=== PATIENT | male | born 1965 | race African-American/Black ===

== ENCOUNTER 2018-08-01 17:28 | Inpatient (IN) | payer MEDICAID ==
[~2018-08-01] VITALS: Ht 185.4 cm; Wt 120.7 kg
[2018-08-01 17:40] VITALS: BP 139/88
--- NOTE | 2018-08-01 17:40 | NUR ---
ED Nurse Note: PT WALKED IN TO ER TODAY FROM HOME. AOX4. PT C/O RIGHT LEG PAIN, 5/10 AT REST, AND SWELLING X 1 WEEK. PT PRESENTS WITH 3+ PITTING EDEMA TO RIGHT LOWER EXTREMITY. CIRCULATION AND SENSATION INTACT, CAP REFILL <3 SECONDS, 5/5 MUSCLE STRENGTH AND FULL ROM OF DIGITS AND EXTREMITY. PT STATES HE FEELS THAT LEFT LEG IS ALSO STARTING TO SWELL. PT ALSO C/O INCREASING PAIN WITH AMBULATION. PT DENIES ANY MEDICAL HISTORY BESIDES HTN.
[2018-08-01 18:12] LABS: APPEARANCE,URINE CLEAR; BILIRUBIN, URINE NEGATIVE (NEGATIVE); GLUCOSE, URINE (UA) NEGATIVE (NEGATIVE); KETONES,URINE NEGATIVE (NEGATIVE); LEUKOCYTE ESTERASE ,URINE 1+ (NEGATIVE); NITRITE,URINE NEGATIVE (NEGATIVE); PH,URINE 7 (4.5-8.0); PROTEIN,URINE NEGATIVE (NEGATIVE); UROBILINOGEN,URINE 4 MG/DL (0.0-1.0)
[2018-08-01 18:13] LABS: BASOPHILS % (AUTO) 1.1 % (0.0-2.0); COLOR,URINE YELLOW; HEMATOCRIT 43.3 % (42.0-52.0); LYMPHOCYTES % (AUTO) 29.7 % (20.0-45.0); MEAN CORPUSCULAR VOLUME 91 FL (80-99); MONOCYTES % (AUTO) 11.6 % (1.0-10.0); NEUTROPHILS % (AUTO) 52.6 % (45.0-75.0); PLATELET COUNT 173 K/UL (150-450); RED BLOOD COUNT 4.74 M/UL (4.70-6.10); RED CELL DISTRIBUTION WIDTH 12.9 % (11.6-14.8); WHITE BLOOD COUNT 6.6 K/UL (4.8-10.8)
[2018-08-01 18:38] LABS: ANION GAP 11 mmol/L (5-15); BLOOD UREA NITROGEN 15 mg/dL (7-18); CALCIUM 8.7 MG/DL (8.5-10.1); CARBON DIOXIDE 27 MMOL/L (21-32); CHLORIDE 106 MMOL/L (98-107); SODIUM 144 MMOL/L (136-145)
[2018-08-01 18:43] LABS: ALANINE AMINOTRANSFERASE 30 U/L (12-78); ALBUMIN 3.8 G/DL (3.4-5.0); ALKALINE PHOSPHATASE 120 U/L (46-116); ASPARTATE AMINO TRANSFERASE 21 U/L (15-37); BILIRUBIN,TOTAL 0.2 MG/DL (0.2-1.0)
--- NOTE | 2018-08-01 19:10 | NUR ---
ED Nurse Note: REPORT GIVEN TO TRACEY RUIZ.
--- NOTE | 2018-08-01 19:21 | Emergency Room Report ---
History of Present Illness General Chief Complaint: Edema Source: Patient Present Illness HPI 53-year-old male presents ED for evaluation. Patient complaining of right leg pain and swelling for one week. Pain is throbbing, 10 out of 10, nonradiating. Denies any recent fall or injury. Denies chest pain or shortness of breath. Denies fevers or chills. No other aggravating relieving factors. Denies any other associated symptoms Allergies: Coded Allergies: No Known Allergies (Unverified , 08/01/18) Patient History Past Medical History: HTN Past Surgical History: none Pertinent Family History: none Social History: Denies: smoking, alcohol use, drug use Immunizations: UTD Reviewed Nursing Documentation: PMH: Agreed; PSxH: Agreed Nursing Documentation-PMH Past Medical History: No History, Except For Hx Hypertension: Yes Review of Systems All Other Systems: negative except mentioned in HPI Physical Exam Vital Signs Date Time Temp Pulse Resp B/P (MAP) Pulse Ox O2 Delivery O2 Flow Rate FiO2 08/01/18 17:33 98.2 81 20 170/81 95 Room Air Sp02 EP Interpretation: reviewed, normal General Appearance: no apparent distress, alert, GCS 15, non-toxic Head: normocephalic Eyes: bilateral eye normal inspection, bilateral eye PERRL ENT: normal ENT inspection Neck: normal inspection Respiratory: chest non-tender, lungs clear, normal breath sounds, speaking full sentences Cardiovascular #1: regular rate, rhythm, no edema Gastrointestinal: normal bowel sounds, non tender, soft, non-distended, no guarding, no rebound Rectal: deferred Genitourinary: no vertebral tenderness Musculoskeletal: swelling - RLE Neurologic: alert, oriented x3, responsive, motor strength/tone normal, sensory intact, speech normal Psychiatric: normal inspection Skin: other - erythema/induration RLE, discharge from wound noted Lymphatic: normal inspection Medical Decision Making Diagnostic Impression: Primary Impression: Cellulitis of right lower extremity ER Course Hospital Course 53-year-old male presents to ED with redness, swelling to RLE Differential diagnoses include: Cellulitis, DVT, abscess, rash. Clinical course Patient placed on stretcher. After initial history and physical I ordered labs , blood Cx, UA, IVFs, doppler US of LLE labs reviewed - no leukocytosis, Hb/Hct stable, no electrolyte abnormalities, lactic acid ok Doppler US - no evidence of DVT antibiotics given. Case discussed with Dr Staples and he agreed to accept the patient to his service for further care and support Diagnosis - cellulitis of right lower extremity Patient admitted to floor in serious condition Labs Test 08/01/18 17:50 08/01/18 18:20 White Blood Count 6.6 K/UL (4.8-10.8) Red Blood Count 4.74 M/UL (4.70-6.10) Hemoglobin 14.0 G/DL (14.2-18.0) Hematocrit 43.3 % (42.0-52.0) Mean Corpuscular Volume 91 FL (80-99) Mean Corpuscular Hemoglobin 29.6 PG (27.0-31.0) Mean Corpuscular Hemoglobin Concent 32.4 G/DL (32.0-36.0) Red Cell Distribution Width 12.9 % (11.6-14.8) Platelet Count 173 K/UL (150-450) Mean Platelet Volume 8.8 FL (6.5-10.1) Neutrophils (%) (Auto) 52.6 % (45.0-75.0) Lymphocytes (%) (Auto) 29.7 % (20.0-45.0) Monocytes (%) (Auto) 11.6 % (1.0-10.0) Eosinophils (%) (Auto) 5.0 % (0.0-3.0) Basophils (%) (Auto) 1.1 % (0.0-2.0) Urine Color Yellow Urine Appearance Clear Urine pH 7 (4.5-8.0) Urine Specific [place] 1.010 (1.005-1.035) Urine Protein Negative (NEGATIVE) Urine Glucose (UA) Negative (NEGATIVE) Urine Ketones Negative (NEGATIVE) Urine Blood Negative (NEGATIVE) Urine Nitrite Negative (NEGATIVE) Urine Bilirubin Negative (NEGATIVE) Urine Urobilinogen 4 MG/DL (0.0-1.0) Urine Leukocyte Esterase 1+ (NEGATIVE) Urine RBC 0-2 /HPF (0 - 0) Urine WBC 0-2 /HPF (0 - 0) Urine Squamous Epithelial Cells None /LPF (NONE/OCC) Urine Bacteria None /HPF (NONE) Urine Mucus Few /LPF (NONE/OCC) Sodium Level 144 MMOL/L (136-145) Potassium Level 4.0 MMOL/L (3.5-5.1) Chloride Level 106 MMOL/L (98-107) Carbon Dioxide Level 27 MMOL/L (21-32) Anion Gap 11 mmol/L (5-15) Blood Urea Nitrogen 15 mg/dL (7-18) Creatinine 1.0 MG/DL (0.55-1.30) Estimat Glomerular Filtration Rate > 60 mL/min (>60) Glucose Level 119 MG/DL (74-106) Calcium Level 8.7 MG/DL (8.5-10.1) Total Bilirubin 0.2 MG/DL (0.2-1.0) Aspartate Amino Transf (AST/SGOT) 21 U/L (15-37) Alanine Aminotransferase (ALT/SGPT) 30 U/L (12-78) Alkaline Phosphatase 120 U/L (46-116) Total Protein 7.6 G/DL (6.4-8.2) Albumin 3.8 G/DL (3.4-5.0) Globulin 3.8 g/dL Albumin/Globulin Ratio 1.0 (1.0-2.7) Lactic Acid Level 1.20 mmol/L (0.4-2.0) CT/MRI/US Diagnostic Results CT/MRI/US Diagnostic Results : Imaging Test Ordered: venous duplex Impression no DVT in RLE Last Vital Signs Date Time Temp Pulse Resp B/P (MAP) Pulse Ox O2 Delivery O2 Flow Rate FiO2 08/01/18 17:40 98.4 71 15 139/88 100 Room Air Status: improved Disposition: ADMITTED INPATIENT Condition: Serious Scripts No Active Prescriptions or Reported Meds Referrals: NOT CHOSEN IPA/,REFERRING (PCP) Mika Gutierrez MD Aug 01, 2018 19:21
--- NOTE | 2018-08-01 20:13 | NUR ---
TRANSFER TO FLOOR: Patient transferred to [facility] as ordered . Report given to Nataly/TRACEY. Belongings sent with Pt.
--- NOTE | 2018-08-01 21:14 | History & Physical ---
History and Physical History & Physicial History and Physical HPI 53-year-old male with PMH of Hypertension, presents complaining of right leg pain and swelling for one week. Denies any recent fall or injury. Denies chest pain or shortness of breath. Denies fevers or chills. No other aggravating relieving factors. Denies any other associated symptoms Allergies: No Known Allergies Past Medical History: HTN Past Surgical History: none Social History: Denies: smoking, alcohol use, drug use All Other Systems: negative except mentioned in HPI Physical Exam Vital Signs Noted Date Time Temp Pulse Resp B/P (MAP) Pulse Ox O2 Delivery O2 Flow Rate FiO2 08/01/18 17:33 98.2 81 20 170/81 95 Room Air General Appearance: no apparent distress, alert, GCS 15, non-toxic Head: normocephalic Eyes: bilateral eye normal inspection, bilateral eye PERRL ENT: normal ENT inspection Neck: normal inspection Respiratory: chest non-tender, lungs clear, normal breath sounds, speaking full sentences Cardiovascular: Heart, HS1, HS2, RRR, no edema Gastrointestinal: normal bowel sounds, non tender, soft, non-distended, no guarding, no rebound Genitourinary: no vertebral tenderness Musculoskeletal: swelling - RLE Neurologic: alert, oriented x3, responsive, motor strength/tone normal, sensory intact, speech normal Psychiatric: normal inspection Skin: other - erythema/induration RLE, discharge from wound noted Lymphatic: normal inspection Impression: Cellulitis R LE LE Dupplex negative for DVT H/o Hypertension Plan: IV Antibiotics - continue Clindamycin Pain medications Wound care Wound cultures PPX Shawn Lanier MD Aug 01, 2018 21:14
[2018-08-01] MEDS ORDERED: Morphine Sulfate 2mg/ml Inj(IV/IM USE ONLY) IVP PRN (21:30)
[2018-08-01] MEDS ORDERED: NKM (21:30)
[2018-08-01] MEDS ORDERED: HydrALAZINE 25mg tab ORAL PRN (21:30)
[2018-08-01 21:40] VITALS: BP 170/96
--- NOTE | 2018-08-01 22:00 | NUR ---
NURSE NOTES: Patient admitted from ER via gurney. Patient is ambulatory, slightly unsteady gait d/t swelling on right leg. Patient is aox4, room air, no acute distress. Belongings verified at bedside. bruno has avina and request to put it in safe. supervisor residential Mitchell notified. Patient is oriented to room and unit. Admitting orders received from Dr. Lanier, read back. Will carry out orders.
[2018-08-02] VITALS: BP 139/79
[2018-08-02 04:00] VITALS: BP 126/73
--- NOTE | 2018-08-02 07:18 | NUR ---
HAND-OFF: Report given to Maria Del Rosario WEBB.
--- NOTE | 2018-08-02 07:46 | NUR ---
NURSE NOTES: Received report from TRACEY Rosenthal. Pt in bed asleep, respirations unlabored, no apparent distress noted, bed in lowest position, call light within reach.
[2018-08-02 08:00] VITALS: BP 156/79
[2018-08-02] MEDS: Heparin 5000 units/ml inj SUBQ SCH ×2 (08:16→21:23)
--- NOTE | 2018-08-02 08:52 | NUR ---
RADIOLOGY DEPT., RIGHT FOOT X-RAY COMPLETED.-PLaurieDYE
--- NOTE | 2018-08-02 08:57 | General Progress Note ---
Assessment/Plan Assessment/Plan Impression: Cellulitis R LE LE Dupplex negative for DVT H/o Hypertension Plan: IV Antibiotics - continue Clindamycin Pain medications Wound care Wound cultures ID evaluation Subjective Allergies: Coded Allergies: No Known Allergies (Unverified , 08/01/18) Subjective same otherwise stable Objective Last 24 Hour Vital Signs Date Time Temp Pulse Resp B/P (MAP) Pulse Ox O2 Delivery O2 Flow Rate FiO2 08/02/18 08:12 73 156/79 08/02/18 08:00 97.5 73 16 156/79 (104) 99 08/02/18 04:00 97.6 71 20 126/73 (90) 98 08/02/18 00:00 98.4 78 20 139/79 (99) 98 08/01/18 22:00 Room Air 08/01/18 21:54 71 170/85 08/01/18 21:40 97.6 70 20 170/96 (120) 98 08/01/18 19:13 98.3 75 15 151/84 100 Room Air 08/01/18 17:40 98.4 71 15 139/88 100 Room Air 08/01/18 17:40 71 15 Room Air 08/01/18 17:33 98.2 81 20 170/81 95 Room Air Intake and Output 08/01/18 08/02/18 18:59 06:59 Intake Total 350 ml Output Total 600 ml Balance -250 ml Intake Oral 300 ml IV Total 50 ml Output Urine Total 600 ml # Voids 1 Laboratory Tests 08/01/18 17:50: White Blood Count 6.6, Red Blood Count 4.74, Hemoglobin 14.0L, Hematocrit 43.3, Mean Corpuscular Volume 91, Mean Corpuscular Hemoglobin 29.6, Mean Corpuscular Hemoglobin Concent 32.4, Red Cell Distribution Width 12.9, Platelet Count 173, Mean Platelet Volume 8.8, Neutrophils (%) (Auto) 52.6, Lymphocytes (%) (Auto) 29.7, Monocytes (%) (Auto) 11.6H, Eosinophils (%) (Auto) 5.0H, Basophils (%) ( Auto) 1.1, Urine Color Yellow, Urine Appearance Clear, Urine pH 7, Urine Specific [place] 1.010, Urine Protein Negative, Urine Glucose (UA) Negative, Urine Ketones Negative, Urine Blood Negative, Urine Nitrite Negative, Urine Bilirubin Negative, Urine Urobilinogen 4H, Urine Leukocyte Esterase 1+H, Urine RBC 0-2H, Urine WBC 0-2, Urine Squamous Epithelial Cells None, Urine Bacteria None, Urine Mucus FewH, Sodium Level 144, Potassium Level 4.0, Chloride Level 106, Carbon Dioxide Level 27, Anion Gap 11, Blood Urea Nitrogen 15, Creatinine 1.0, Estimat Glomerular Filtration Rate > 60, Glucose Level 119H, Calcium Level 8.7, Total Bilirubin 0.2, Aspartate Amino Transf (AST/SGOT) 21, Alanine Aminotransferase (ALT/SGPT) 30, Alkaline Phosphatase 120H, Total Protein 7.6, Albumin 3.8, Globulin 3.8, Albumin/Globulin Ratio 1.0 08/01/18 18:20: Lactic Acid Level 1.20 Height (Feet): 6 Height (Inches): 1.00 Weight (Pounds): 266 Objective WDWN NAD clear breath sounds bilaterally without rhonchi or wheeze [id number] without MRG NABS nontender no HSM no CC significant edema and weeping of the leg nonfocal Jake Staples MD Aug 02, 2018 08:57
--- NOTE | 2018-08-02 10:47 | NUR ---
NURSE NOTES: Pt seen by PAMELA Calle LVN. Notified Dr. Staples of recommendations including recommendation for wound to be drained. Addendum: 08/02/18 at 1049 by CARISA ROSALES RN asked if Dr. Staples would like a consult
[2018-08-02 12:00] VITALS: BP 155/82
--- NOTE | 2018-08-02 13:00 | Diagnostic Imaging Report ---
Indication: Foot Pain Comparison: None Findings: 3 views of the right foot were obtained. No acute fractures, malalignment, erosions or periostitis are identified. Hallux valgus the form noted. There is moderate generalized soft tissue swelling nonspecific. Impression: Soft tissue swelling Hallux valgus
--- NOTE | 2018-08-02 13:25 | NUR ---
NURSE NOTES:WOUND CARE NOTES:Pt presented on admission with wound of unknown etiology dorso/flexor R foot. Wound is malodorous and has puncture -like appearance with 100% slough(L)0.6cm x (W)0.9cm. Periwound macerated and is indurated and swollen. No exudate noted from wound.Slightly elevated skin temp periwound. Pt verbalized site very painful with bearing weight on R foot. Recommendations:Please request Physician consult from PCP to evaluate wound. Cleanse wound with Saline. Apply Xeroform Gauze.Cover with Abd and wrap with Kerlix Daily and prn.
--- NOTE | 2018-08-02 15:35 | Consultation ---
History of Present Illness General Date patient seen: Aug 02, 2018 Reason for Hospitalization: Edema Present Illness HPI This is a very pleasant 53-year-old male who presented to the emergency department [facility] complaining of worsening right foot pain. States that he has had worsening edema over the past week and developed a wound which has been slowly healing with a tender white spot at the apex of the wound. Denies any nausea vomiting fever chills. Labs noted. Surgery called to evaluate and assist with care and management. Patient seen, patient evaluated, patient examined. Allergies: Coded Allergies: No Known Allergies (Unverified , 08/01/18) Medication History Scheduled No Known Medications* (NKM - No Known Medications*), 0 ., (Reported) Patient History History Provided By: Patient, Medical Record, PMD Healthcare decision maker Resuscitation status Full Code Advanced Directive on File Past Medical/Surgical History Past Medical/Surgical History: (1) Cellulitis (2) Cellulitis of right lower extremity (3) Open wound Review of Systems Review of Symptoms General ROS: no weight loss or fever Psychological ROS: no depression or mood changes, no memory loss Ophthalmic ROS: no visual changes or eye irritation ENT ROS: no nasal congestion, hearing loss, dizziness Allergy and Immunology ROS: no allergic symptoms or urticaria Hematological and Lymphatic ROS: no swollen glands, unusual bleeding or bruising Endocrine ROS: no polyuria, polydipsia, weight changes, temperature intolerance Respiratory ROS: no cough, shortness of breath, or wheezing Cardiovascular ROS: no chest pain or dyspnea on exertion Gastrointestinal ROS: denies abdominal pain, no bright red blood in stool. Musculoskeletal ROS: no myalgias or arthralgias Neurological ROS: no TIA or stroke symptoms Dermatological ROS: no new or changing skin lesions, rashes or pruritis Physical Exam Physical Exam General appearance: alert, cooperative, no distress, appears stated age Head: Normocephalic, without obvious abnormality, atraumatic Eyes: conjunctivae/corneas clear. PERRL, EOM's intact. Fundi benign Throat: Lips, mucosa, and tongue normal. Teeth and gums normal Neck: supple, symmetrical, trachea midline, no adenopathy, thyroid: not enlarged, symmetric, no tenderness/mass/nodules, no carotid bruit and no JVD Lungs: clear to auscultation bilaterally Heart: regular rate and rhythm, S1, S2 normal, no murmur, click, rub or gallop Abdomen: soft, non-tender. Bowel sounds normal. No masses, no organomegaly Extremities: extremities normal, atraumatic, edema of right foot with ulceration at dorsal aspect Pulses: 2+ and symmetric Skin: Skin color, texture, turgor normal. No rashes or lesions Neurologic: Grossly normal Last 24 Hour Vital Signs Date Time Temp Pulse Resp B/P (MAP) Pulse Ox O2 Delivery O2 Flow Rate FiO2 08/02/18 12:00 97.5 73 18 155/82 (106) 98 08/02/18 09:00 Room Air 08/02/18 08:12 73 156/79 08/02/18 08:00 97.5 73 16 156/79 (104) 99 08/02/18 04:00 97.6 71 20 126/73 (90) 98 08/02/18 00:00 98.4 78 20 139/79 (99) 98 08/01/18 22:00 Room Air 08/01/18 21:54 71 170/85 08/01/18 21:40 97.6 70 20 170/96 (120) 98 08/01/18 19:13 98.3 75 15 151/84 100 Room Air 08/01/18 17:40 98.4 71 15 139/88 100 Room Air 08/01/18 17:40 71 15 Room Air 08/01/18 17:33 98.2 81 20 170/81 95 Room Air Intake and Output 08/01/18 08/02/18 19:00 07:00 Intake Total 350 ml Output Total 600 ml Balance -250 ml Intake Oral 300 ml IV Total 50 ml Output Urine Total 600 ml # Voids 1 Laboratory Tests Test 08/01/18 17:50 08/01/18 18:20 White Blood Count 6.6 K/UL (4.8-10.8) Red Blood Count 4.74 M/UL (4.70-6.10) Hemoglobin 14.0 G/DL (14.2-18.0) L Hematocrit 43.3 % (42.0-52.0) Mean Corpuscular Volume 91 FL (80-99) Mean Corpuscular Hemoglobin 29.6 PG (27.0-31.0) Mean Corpuscular Hemoglobin Concent 32.4 G/DL (32.0-36.0) Red Cell Distribution Width 12.9 % (11.6-14.8) Platelet Count 173 K/UL (150-450) Mean Platelet Volume 8.8 FL (6.5-10.1) Neutrophils (%) (Auto) 52.6 % (45.0-75.0) Lymphocytes (%) (Auto) 29.7 % (20.0-45.0) Monocytes (%) (Auto) 11.6 % (1.0-10.0) H Eosinophils (%) (Auto) 5.0 % (0.0-3.0) H Basophils (%) (Auto) 1.1 % (0.0-2.0) Urine Color Yellow Urine Appearance Clear Urine pH 7 (4.5-8.0) Urine Specific [place] 1.010 (1.005-1.035) Urine Protein Negative (NEGATIVE) Urine Glucose (UA) Negative (NEGATIVE) Urine Ketones Negative (NEGATIVE) Urine Blood Negative (NEGATIVE) Urine Nitrite Negative (NEGATIVE) Urine Bilirubin Negative (NEGATIVE) Urine Urobilinogen 4 MG/DL (0.0-1.0) H Urine Leukocyte Esterase 1+ (NEGATIVE) H Urine RBC 0-2 /HPF (0 - 0) H Urine WBC 0-2 /HPF (0 - 0) Urine Squamous Epithelial Cells None /LPF (NONE/OCC) Urine Bacteria None /HPF (NONE) Urine Mucus Few /LPF (NONE/OCC) H Sodium Level 144 MMOL/L (136-145) Potassium Level 4.0 MMOL/L (3.5-5.1) Chloride Level 106 MMOL/L (98-107) Carbon Dioxide Level 27 MMOL/L (21-32) Anion Gap 11 mmol/L (5-15) Blood Urea Nitrogen 15 mg/dL (7-18) Creatinine 1.0 MG/DL (0.55-1.30) Estimat Glomerular Filtration Rate > 60 mL/min (>60) Glucose Level 119 MG/DL (74-106) H Calcium Level 8.7 MG/DL (8.5-10.1) Total Bilirubin 0.2 MG/DL (0.2-1.0) Aspartate Amino Transf (AST/SGOT) 21 U/L (15-37) Alanine Aminotransferase (ALT/SGPT) 30 U/L (12-78) Alkaline Phosphatase 120 U/L (46-116) H Total Protein 7.6 G/DL (6.4-8.2) Albumin 3.8 G/DL (3.4-5.0) Globulin 3.8 g/dL Albumin/Globulin Ratio 1.0 (1.0-2.7) Lactic Acid Level 1.20 mmol/L (0.4-2.0) Microbiology Date/Time Source Procedure Growth Status 08/01/18 18:20 Wound Gram Stain - Final Resulted 08/01/18 18:20 Wound Culture - Preliminary Staphylococcus Aureus Resulted Height (Feet): 6 Height (Inches): 1.00 Weight (Pounds): 266 Medications Current Medications Medications (Trade) Dose Ordered Sig/Tere Route PRN Reason Start Time Stop Time Status Last Admin Dose Admin Acetaminophen (Tylenol) 650 mg Q6H PRN ORAL Pain 1-6/Temp > 100.5 08/01/18 21:30 08/31/18 21:29 Amlodipine Besylate (Norvasc) 5 mg DAILY ORAL 08/01/18 21:45 08/31/18 21:44 08/02/18 08:12 Clindamycin HCl/ Dextrose 50 ml @ 100 mls/hr Q8HR IV 08/02/18 06:00 08/09/18 05:59 08/02/18 14:02 Diphenhydramine HCl (Benadryl) 25 mg Q6H PRN ORAL Itching 08/01/18 21:30 08/31/18 21:29 Heparin Sodium (Porcine) (Heparin 5000 units/ml) 5,000 units EVERY 12 HOURS SUBQ 08/02/18 09:00 09/01/18 08:59 08/02/18 08:16 Hydralazine HCl (Apresoline) 25 mg Q6H PRN ORAL For High Blood Pressure 08/01/18 21:30 08/31/18 21:29 Morphine Sulfate (Morphine Sulfate) 1 mg Q3H PRN IVP Severe Pain (Pain Scale 7-10) 08/01/18 21:30 08/08/18 21:29 Ondansetron HCl (Zofran) 4 mg Q8H PRN IVP Nausea & Vomiting 08/01/18 21:30 08/31/18 21:29 Assessment/Plan Problem List: (1) Cellulitis of right lower extremity Assessment & Plan: Pt presented on admission with wound of unknown etiology dorso RIGHT foot. Wound is malodorous and has puncture -like appearance with 100 % slough(L)0.6cm x (W)0.9cm. Periwound macerated and is indurated and swollen. No exudate noted from wound.Slightly elevated skin temp periwound. Pt verbalized site very painful with bearing weight on R foot. Recommendations: with patients permission / consent the sloth on wound was debrided with surgical scalpel and scissors. good underlying tissue with back bleeding noted. no abscess. Abx Cleanse wound with Saline. Apply Xeroform Gauze.Cover with Abd and wrap with Kerlix Daily and prn. Keep right lower extremity elevated while in bed Heel protectors okay to ambulate. ICD Codes: L03.115 - Cellulitis of right lower limb SNOMED: [id number] TylerIsrael osullivan Aug 02, 2018 15:35
[2018-08-02 16:00] VITALS: BP 155/82
[2018-08-02 20:00] VITALS: BP 145/81
--- NOTE | 2018-08-02 20:00 | NUR ---
NURSE NOTES: Patient received in bed, awake alert. Right leg elevated on 2 pillows. Dressing dry and intact. Denies pain or discomfort at this time. Family member at bedside, inquiring regarding disability for patient after discharge. Patient allowed for CM or SW to contact sister in law Deborah Espino regarding discharge plan. Deborah Keith [phone]
[2018-08-03] VITALS: BP 135/92
[2018-08-03 04:15] VITALS: BP 144/83
--- NOTE | 2018-08-03 05:00 | NUR ---
NURSE NOTES: R foot dressing changed.
[2018-08-03 06:51] LABS: BASOPHILS % (AUTO) 0.9 % (0.0-2.0); EOSINOPHILS % (AUTO) 6.7 % (0.0-3.0); HEMATOCRIT 44.6 % (42.0-52.0); HEMOGLOBIN 14.3 G/DL (14.2-18.0); LYMPHOCYTES % (AUTO) 35.1 % (20.0-45.0); MEAN CORPUSCULAR VOLUME 92 FL (80-99); MONOCYTES % (AUTO) 10.6 % (1.0-10.0); NEUTROPHILS % (AUTO) 46.7 % (45.0-75.0); PLATELET COUNT 189 K/UL (150-450); RED BLOOD COUNT 4.86 M/UL (4.70-6.10); RED CELL DISTRIBUTION WIDTH 12.7 % (11.6-14.8); WHITE BLOOD COUNT 5.1 K/UL (4.8-10.8)
--- NOTE | 2018-08-03 07:16 | NUR ---
HAND-OFF: Report given to Maria Del Rosario WEBB.
--- NOTE | 2018-08-03 07:27 | NUR ---
NURSE NOTES: Received report from TRACEY Rosenthal. Pt in bed, asleep, respirations regular and unlabored, right foot elevated due to swelling, no apparent distress noted, bed in lowest position, call light within reach.
[2018-08-03 07:30] LABS: ANION GAP 6 mmol/L (5-15); BLOOD UREA NITROGEN 11 mg/dL (7-18); CALCIUM 8.7 MG/DL (8.5-10.1); CARBON DIOXIDE 28 MMOL/L (21-32); CHLORIDE 107 MMOL/L (98-107); CREATININE 0.9 MG/DL (0.55-1.30); POTASSIUM 3.7 MMOL/L (3.5-5.1); SODIUM 141 MMOL/L (136-145)
[2018-08-03 08:00] VITALS: BP 151/89
[2018-08-03] MEDS: Heparin 5000 units/ml inj SUBQ SCH ×2 (08:12→20:28)
--- NOTE | 2018-08-03 11:18 | Pulmonology Progress Note ---
Assessment/Plan Assessment/Plan Pulmonary Progress Note Assessment/Plan Impression: Cellulitis R LE LE Dupplex negative for DVT H/o Hypertension Seen by surgery, ambulation OK Plan: IV Antibiotics - continue Clindamycin Pain medications Wound care Wound cultures ID evaluation Subjective Allergies: Coded Allergies: No Known Allergies (Unverified , 08/01/18) Subjective same otherwise stable Objective Vital Signs Noted Laboratory Tests 08/01/18 17:50: White Blood Count 6.6, Red Blood Count 4.74, Hemoglobin 14.0L, Hematocrit 43.3, Mean Corpuscular Volume 91, Mean Corpuscular Hemoglobin 29.6, Mean Corpuscular Hemoglobin Concent 32.4, Red Cell Distribution Width 12.9, Platelet Count 173, Mean Platelet Volume 8.8, Neutrophils (%) (Auto) 52.6, Lymphocytes (%) (Auto) 29.7, Monocytes (%) (Auto) 11.6H, Eosinophils (%) (Auto) 5.0H, Basophils (%) ( Auto) 1.1, Urine Color Yellow, Urine Appearance Clear, Urine pH 7, Urine Specific [place] 1.010, Urine Protein Negative, Urine Glucose (UA) Negative, Urine Ketones Negative, Urine Blood Negative, Urine Nitrite Negative, Urine Bilirubin Negative, Urine Urobilinogen 4H, Urine Leukocyte Esterase 1+H, Urine RBC 0-2H, Urine WBC 0-2, Urine Squamous Epithelial Cells None, Urine Bacteria None, Urine Mucus FewH, Sodium Level 144, Potassium Level 4.0, Chloride Level 106, Carbon Dioxide Level 27, Anion Gap 11, Blood Urea Nitrogen 15, Creatinine 1.0, Estimat Glomerular Filtration Rate > 60, Glucose Level 119H, Calcium Level 8.7, Total Bilirubin 0.2, Aspartate Amino Transf (AST/SGOT) 21, Alanine Aminotransferase (ALT/SGPT) 30, Alkaline Phosphatase 120H, Total Protein 7.6, Albumin 3.8, Globulin 3.8, Albumin/Globulin Ratio 1.0 08/01/18 18:20: Lactic Acid Level 1.20 Height (Feet): 6 Height (Inches): 1.00 Weight (Pounds): 266 Objective WDWN NAD clear breath sounds bilaterally without rhonchi or wheeze [id number] without MRG NABS nontender no HSM no CC significant edema and weeping of the leg nonfocal Subjective ROS Limited/Unobtainable: No Allergies: Coded Allergies: No Known Allergies (Unverified , 08/01/18) Objective Last 24 Hour Vital Signs Date Time Temp Pulse Resp B/P (MAP) Pulse Ox O2 Delivery O2 Flow Rate FiO2 08/03/18 09:00 Room Air 08/03/18 08:11 76 144/83 08/03/18 08:00 97.7 75 18 151/89 (109) 98 08/03/18 04:15 97.8 76 20 144/83 (103) 97 08/03/18 00:00 97.9 84 20 135/92 (106) 97 08/02/18 20:54 Room Air 08/02/18 20:00 98.7 75 20 145/81 (102) 97 08/02/18 16:00 97.5 73 18 155/82 (106) 98 08/02/18 12:00 97.5 73 18 155/82 (106) 98 Intake and Output 08/02/18 08/03/18 18:59 06:59 Intake Total 800 ml 100 ml Output Total 1000 ml 550 ml Balance -200 ml -450 ml Intake Oral 800 ml IV Total 100 ml Output Urine Total 1000 ml 550 ml # Voids 100 2 Microbiology Date/Time Source Procedure Growth Status 08/01/18 18:20 Blood Blood Culture - Preliminary NO GROWTH AFTER 24 HOURS Resulted 08/01/18 18:05 Blood Blood Culture - Preliminary NO GROWTH AFTER 24 HOURS Resulted 08/01/18 18:20 Wound Gram Stain - Final Complete 08/01/18 18:20 Wound Culture - Final Staphylococcus Aureus Streptococcus Group G Complete 08/01/18 21:50 Foot Right Gram Stain - Final Resulted 08/01/18 21:50 Wound Culture - Preliminary Staphylococcus Aureus Strep Species, Beta Hemolytic Diphtheroids Resulted Laboratory Tests 08/03/18 05:20: White Blood Count 5.1, Red Blood Count 4.86, Hemoglobin 14.3, Hematocrit 44.6, Mean Corpuscular Volume 92, Mean Corpuscular Hemoglobin 29.4, Mean Corpuscular Hemoglobin Concent 32.0, Red Cell Distribution Width 12.7, Platelet Count 189, Mean Platelet Volume 9.7, Neutrophils (%) (Auto) 46.7, Lymphocytes (%) (Auto) 35.1, Monocytes (%) (Auto) 10.6H, Eosinophils (%) (Auto) 6.7H, Basophils (%) ( Auto) 0.9, Sodium Level 141, Potassium Level 3.7, Chloride Level 107, Carbon Dioxide Level 28, Anion Gap 6, Blood Urea Nitrogen 11, Creatinine 0.9, Estimat Glomerular Filtration Rate > 60, Glucose Level 81, Calcium Level 8.7 Current Medications Medications (Trade) Dose Ordered Sig/Tere Route PRN Reason Start Time Stop Time Status Last Admin Dose Admin Acetaminophen (Tylenol) 650 mg Q6H PRN ORAL Pain 1-6/Temp > 100.5 08/01/18 21:30 08/31/18 21:29 Amlodipine Besylate (Norvasc) 5 mg DAILY ORAL 08/01/18 21:45 08/31/18 21:44 08/03/18 08:11 Clindamycin HCl/ Dextrose 50 ml @ 100 mls/hr Q8HR IV 08/02/18 06:00 08/09/18 05:59 08/03/18 05:04 Diphenhydramine HCl (Benadryl) 25 mg Q6H PRN ORAL Itching 08/01/18 21:30 08/31/18 21:29 Heparin Sodium (Porcine) (Heparin 5000 units/ml) 5,000 units EVERY 12 HOURS SUBQ 08/02/18 09:00 09/01/18 08:59 08/03/18 08:12 Hydralazine HCl (Apresoline) 25 mg Q6H PRN ORAL For High Blood Pressure 08/01/18 21:30 08/31/18 21:29 Morphine Sulfate (Morphine Sulfate) 1 mg Q3H PRN IVP Severe Pain (Pain Scale 7-10) 08/01/18 21:30 08/08/18 21:29 Ondansetron HCl (Zofran) 4 mg Q8H PRN IVP Nausea & Vomiting 08/01/18 21:30 08/31/18 21:29 Vancomycin HCl (Vanco rx to dose) 1 ea DAILY PRN MISC Per rx protocol 08/03/18 10:30 09/02/18 10:29 Vancomycin HCl 1.25 gm/Dextrose 275 ml @ 183.333 mls/hr Q8H IVPB 08/03/18 20:00 08/08/18 19:59 Vancomycin HCl 2 gm/Dextrose 550 ml @ 275 mls/hr ONCE IVPB 08/03/18 12:00 08/03/18 14:00 Shawn Lanier MD Aug 03, 2018 11:18
[2018-08-03 12:00] VITALS: BP 153/79
[2018-08-03] MEDS ORDERED: Vancomycin 2gm/D5W 550ml IVPB SCH ×2 (12:00)
[2018-08-03] MEDS: Vancomycin 1.25mg/D5W 275ml IVPB SCH ×2 (13:16)
--- NOTE | 2018-08-03 14:06 | Diagnostic Imaging Report ---
Indication: Right lower extremity pain and swelling. Technique: Duplex Doppler imaging performed from the right common femoral vein to the popliteal vein. FINDINGS: Normal compressibility demonstrated from the common femoral vein to the popliteal vein. Respiratory phasicity and good augmentation demonstrated on waveform analysis. There is no evidence of thrombosis. Small nodes are seen in the right groin. IMPRESSION: No evidence of deep venous thrombosis within the right lower extremity.
--- NOTE | 2018-08-03 14:35 | NUR ---
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 FROM HOME CC:EDEMA SI:CELLULITES OF RIGHT LOWER EXTREMITY VS: BP 170/81, P 81, T 98.3, RR 20, SpO2 95 Hgb 14.0, ALK. PHOS. 120 IS:VANCOMYCIN 275ml IVPB HEPARIN SUBQ CLINDAMYCIN 50ml IV NORVASC 5mg ADMITTED TO MED/SURG DC PLAN: RETURN HOME
--- NOTE | 2018-08-03 15:13 | NUR ---
Social Work This Sw received a consult to assist patient with a home safety evaluation (will need to apply for short term disability). This Sw met with patient who remains independent overall, plans to return home with roommates, to assist, as needed. 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 This Sw provided short term disability forms, while educating patient the process with short term disability, along with terminologist disability (will need to apply through Social Security office). Patient explains his family will assist him, as needed with completing the paperwork (or can complete it himself). No other needs/concerns present at this time.
[2018-08-03 16:00] VITALS: BP 148/90
--- NOTE | 2018-08-03 17:09 | Surgery Progress Note ---
Surgery Progress Note Subjective Additional Comments no acute events. comfortable. pain improved. dressings changed. Objective Last 24 Hour Vital Signs Date Time Temp Pulse Resp B/P (MAP) Pulse Ox O2 Delivery O2 Flow Rate FiO2 08/03/18 16:00 98.0 79 20 148/90 (109) 98 08/03/18 12:00 98.1 67 20 153/79 (103) 98 08/03/18 09:00 Room Air 08/03/18 08:11 76 144/83 08/03/18 08:00 97.7 75 18 151/89 (109) 98 08/03/18 04:15 97.8 76 20 144/83 (103) 97 08/03/18 00:00 97.9 84 20 135/92 (106) 97 08/02/18 20:54 Room Air 08/02/18 20:00 98.7 75 20 145/81 (102) 97 I&O Intake and Output 08/02/18 08/03/18 19:00 07:00 Intake Total 800 ml 100 ml Output Total 1000 ml 550 ml Balance -200 ml -450 ml Intake Oral 800 ml IV Total 100 ml Output Urine Total 1000 ml 550 ml # Voids 100 2 Dressing: saturated Wound: clean Drains: none Cardiovascular: RSR Respiratory: clear Abdomen: soft, present bowel sounds, non-distended Extremities: edema, tenderness Laboratory Tests Test 08/03/18 05:20 White Blood Count 5.1 K/UL (4.8-10.8) Red Blood Count 4.86 M/UL (4.70-6.10) Hemoglobin 14.3 G/DL (14.2-18.0) Hematocrit 44.6 % (42.0-52.0) Mean Corpuscular Volume 92 FL (80-99) Mean Corpuscular Hemoglobin 29.4 PG (27.0-31.0) Mean Corpuscular Hemoglobin Concent 32.0 G/DL (32.0-36.0) Red Cell Distribution Width 12.7 % (11.6-14.8) Platelet Count 189 K/UL (150-450) Mean Platelet Volume 9.7 FL (6.5-10.1) Neutrophils (%) (Auto) 46.7 % (45.0-75.0) Lymphocytes (%) (Auto) 35.1 % (20.0-45.0) Monocytes (%) (Auto) 10.6 % (1.0-10.0) H Eosinophils (%) (Auto) 6.7 % (0.0-3.0) H Basophils (%) (Auto) 0.9 % (0.0-2.0) Sodium Level 141 MMOL/L (136-145) Potassium Level 3.7 MMOL/L (3.5-5.1) Chloride Level 107 MMOL/L (98-107) Carbon Dioxide Level 28 MMOL/L (21-32) Anion Gap 6 mmol/L (5-15) Blood Urea Nitrogen 11 mg/dL (7-18) Creatinine 0.9 MG/DL (0.55-1.30) Estimat Glomerular Filtration Rate > 60 mL/min (>60) Glucose Level 81 MG/DL (74-106) Calcium Level 8.7 MG/DL (8.5-10.1) Plan Problems: (1) Cellulitis of right lower extremity Assessment & Plan: Pt presented on admission with wound of unknown etiology dorso RIGHT foot. Wound is malodorous and has puncture -like appearance with 100 % slough(L)0.6cm x (W)0.9cm. Periwound macerated and is indurated and swollen. No exudate noted from wound.Slightly elevated skin temp periwound. Pt verbalized site very painful with bearing weight on R foot. Recommendations: with patients permission / consent the sloth on wound was debrided with surgical scalpel and scissors. good underlying tissue with back bleeding noted. no abscess. Abx Cleanse wound with Saline. Apply Xeroform Gauze.Cover with Abd and wrap with Kerlix Daily and prn. Keep right lower extremity elevated while in bed Heel protectors okay to ambulate. Israel Sears Aug 03, 2018 17:09
--- NOTE | 2018-08-03 17:15 | Consultation ---
DATE OF CONSULTATION: 08/03/2018 INFECTIOUS DISEASES CONSULTATION CONSULTING PHYSICIAN: Víctor Pratt M.D. REFERRING PHYSICIAN: Jake Staples M.D. REASON FOR CONSULTATION: Right foot cellulitis. HISTORY OF PRESENT ILLNESS: The patient is a 53-year-old gentleman with history of hypertension, who came in with right leg pain and swelling. He denied any injury. He also has redness in his right leg. He was found to have right leg cellulitis with a wound and an Infectious Diseases consultation has been obtained for antibiotics. PAST MEDICAL HISTORY: History of hypertension. SOCIAL HISTORY: He is a smoker. He used to drink alcohol. He does not drink anymore. No history of drug use. FAMILY HISTORY: His mother had lung cancer. REVIEW OF SYSTEMS: RESPIRATORY: No fever, chills, cough, shortness of breath, or chest pain. CARDIAC: No chest pain. No palpitations. No dizziness. No syncope. GASTROINTESTINAL: No nausea. No vomiting. No abdominal pain or diarrhea. MUSCULOSKELETAL: He does complain of a headache and back pain and right leg pain. MEDICATIONS: As an inpatient, he is on subcutaneous heparin, clindamycin, amlodipine, hydralazine, Tylenol morphine, Zofran, and Benadryl. ALLERGIES: No known drug allergies. PHYSICAL EXAMINATION: VITAL SIGNS: Temperature of 97.7, T-max of 98.7, pulse of 76, respiratory rate of 18, blood pressure 144/83, O2 saturation of 98%. HEENT: Pupils equally reactive to light and accommodation. Mouth appears clean without thrush. NECK: Supple. No adenopathy. No JVD. CARDIOVASCULAR: Regular rate and rhythm. No murmurs. LUNGS: Clear to auscultation bilaterally. No crackles. No wheezes. ABDOMEN: Soft and nontender. No organomegaly. EXTREMITIES: No cyanosis. No clubbing. Right leg edema noted. Right foot ulcer noted on the dorsal aspect with some drainage. Right leg edema and erythema noted. LABORATORY AND DIAGNOSTIC DATA: White count 5.1, hemoglobin 14.3, hematocrit 44.6, MCV 92, platelet count of 189 with neutrophils of 46%. Sodium 141, potassium 3.7, chloride 107, bicarb 28, BUN 11, creatinine 0.9, glucose 81, calcium 8.7. Total bilirubin 0.2, AST 21, ALT 30, alkaline phosphatase 120. Total protein 7.6 and albumin 3.8. UA showing 0 to 2 white cells. Right foot culture is growing Staph aureus, beta-hemolytic Streptococcus, and diphtheroids. On 08/01/2018, wound culture growing Staph aureus and group B Streptococcus. On 08/01/2018, blood cultures are negative. Foot x-ray is showing soft tissue swelling with hallux valgus. ASSESSMENT: 1. This is a 53-year-old gentleman with history of hypertension, who comes in and is found to have right foot cellulitis. He also has right foot ulcer infection with a Staph aureus, and beta-hemolytic streptococcus. The Staph aureus is susceptible to clindamycin and oxacillin. 2. Hypertension. PLAN: 1. Continue IV clindamycin. 2. We will start the patient on vancomycin. 3. We will follow up cultures. I would like to thank, Dr. Staples, for this consultation. Víctor Pratt M.D. DR: Chris JOB#: [id number] CC: Jake Staples M.D.; Fax#: [phone]
--- NOTE | 2018-08-03 18:15 | NUR ---
NURSE NOTES: Patient was seen by Electric Motor Analyst, Rubi today. Rubi provided pt with [employer] claim documentation. I assisted pt in correctly filling out his information on the [employer] form. I contacted Dr. Stalpes about the physician information needed to be filled in and signed, Dr. Staples stated to contact Dr. Lanier. Contacted Dr. Lanier asking him to fill out and sign the [employer] form. Dr. Lanier stated he will do it. Pt states he works "Monday through Monday" his work days are 10-15 hr a day and he does not get paid time off or sick time. Pt feels his type of work and his job contributed to his current medical situation.
--- NOTE | 2018-08-03 19:39 | NUR ---
HAND-OFF: Report given to Senia.
--- NOTE | 2018-08-03 19:48 | NUR ---
NURSE NOTES: Received patient in bed, on RA, no SOB, no acute distress, no c/o pain. LFA IV intact, saline lock. R foot dressing intact, dry. In stable condition. Bed in lowest position, locked, alarms on. Call light in reach.
[2018-08-03 20:00] VITALS: BP 145/81
--- NOTE | 2018-08-03 20:39 | NUR ---
Rt got called around 20:30 that patient self extubated. Patient restless at times, patient on restraints not sedated. Found patient with ETT half way out no signs of respiratory distress placed on 2lnc vitals are as follows HR78/ RR14/ Spo2 100%. Auscultated diminished breath sounds no stridor noted. ABG to be drawn. Addendum: 08/03/18 at 2047 by GIRISH MORENO RT Disregard note above incorrect patient.
[2018-08-04] VITALS: BP 133/62
[2018-08-04 04:00] VITALS: BP 140/78
[2018-08-04] MEDS: Vancomycin 1.25mg/D5W 275ml IVPB SCH ×6 (04:12→20:14)
--- NOTE | 2018-08-04 07:20 | NUR ---
NURSE NOTES: RN received pt in stable condition. No acute distress. Bed in low, locked position, call light within reach. Will continue to monitor.
--- NOTE | 2018-08-04 07:28 | NUR ---
HAND-OFF: Report given to Maria Teresa WEBB.
--- NOTE | 2018-08-04 07:33 | NUR ---
NURSE NOTES: Received patient from Shoaib WEBB, patient is resting comfortably in bed, no distress noted, bed is locked and in lowest position, alarm set, call light within reach, will continue to monitor. Addendum: 08/04/18 at 0734 by JOSE GONSALES RN RN josephine Conn.
[2018-08-04 08:00] VITALS: BP 140/77
[2018-08-04] MEDS: Heparin 5000 units/ml inj SUBQ SCH ×2 (09:27→20:21)
[2018-08-04 12:00] VITALS: BP 141/76
--- NOTE | 2018-08-04 13:09 | NUR ---
CASE MANAGEMENT: REVIEW SI: RIGHT LOWER EXTREMITY CELLULITIS . RIGHT LEG / FOOT EDEMA T 97.2 HR 62 RR 20 BP 141/76 SAT 97% ROOM AIR IS: VANCO IV Q8HR CLINDAMYCIN IV Q8HR NORVASC PO QD HEPARIN SQ Q12HR MORPHINE IV Q3HR PRN WOUND CARE PRN MED/SURG STATUS DCP: PATIENT IS FROM HOME
[2018-08-04 16:00] VITALS: BP 144/93
--- NOTE | 2018-08-04 16:54 | Surgery Progress Note ---
Surgery Progress Note Subjective Symptoms: improved, tolerating diet, passing flatus, pain decreased Objective Last 24 Hour Vital Signs Date Time Temp Pulse Resp B/P (MAP) Pulse Ox O2 Delivery O2 Flow Rate FiO2 08/04/18 16:00 98.3 70 20 144/93 (110) 98 08/04/18 12:00 98.3 65 20 141/76 (97) 97 08/04/18 09:26 62 140/77 08/04/18 09:00 Room Air 08/04/18 08:00 98.2 62 20 140/77 (98) 96 08/04/18 04:00 97.2 63 17 140/78 (98) 95 08/04/18 00:00 97.5 63 17 133/62 (85) 97 08/03/18 21:00 Room Air 08/03/18 20:00 98.6 69 16 145/81 (102) 98 I&O Intake and Output 08/03/18 08/04/18 18:59 06:59 Intake Total 1200 ml 1025.000 ml Output Total 800 ml 800 ml Balance 400 ml 225.000 ml Intake Oral 1200 ml 700 ml IV Total 325.000 ml Output Urine Total 800 ml 800 ml # Voids 3 # Bowel Movements 1 Dressing: saturated Wound: clean Drains: none Cardiovascular: RSR Respiratory: clear Abdomen: soft, flat, present bowel sounds Extremities: edema, tenderness, no cyanosis Laboratory Tests Test 08/04/18 11:00 Vancomycin Level Trough 11.9 ug/mL (5.0-12.0) Plan Problems: (1) Cellulitis of right lower extremity Assessment & Plan: Pt presented on admission with wound of unknown etiology dorso RIGHT foot. Wound is malodorous and has puncture -like appearance with 100 % slough(L)0.6cm x (W)0.9cm. Periwound macerated and is indurated and swollen. No exudate noted from wound.Slightly elevated skin temp periwound. Pt verbalized site very painful with bearing weight on R foot. Recommendations: with patients permission / consent the sloth on wound was debrided with surgical scalpel and scissors. good underlying tissue with back bleeding noted. no abscess. Abx Cleanse wound with Saline. Apply Xeroform Gauze.Cover with Abd and wrap with Kerlix Daily and prn. Keep right lower extremity elevated while in bed Heel protectors okay to ambulate. Israel Sears Aug 04, 2018 16:54
--- NOTE | 2018-08-04 17:10 | Pulmonology Progress Note ---
Assessment/Plan Assessment/Plan Pulmonary Progress Note Assessment/Plan Impression: Cellulitis R LE LE Dupplex negative for DVT H/o Hypertension Seen by surgery, ambulation OK Plan: IV Antibiotics - continue Clindamycin Pain medications Wound care Wound cultures ID evaluation Subjective Allergies: Coded Allergies: No Known Allergies (Unverified , 08/01/18) Subjective same otherwise stable Objective Vital Signs Noted Laboratory Tests 08/01/18 17:50: White Blood Count 6.6, Red Blood Count 4.74, Hemoglobin 14.0L, Hematocrit 43.3, Mean Corpuscular Volume 91, Mean Corpuscular Hemoglobin 29.6, Mean Corpuscular Hemoglobin Concent 32.4, Red Cell Distribution Width 12.9, Platelet Count 173, Mean Platelet Volume 8.8, Neutrophils (%) (Auto) 52.6, Lymphocytes (%) (Auto) 29.7, Monocytes (%) (Auto) 11.6H, Eosinophils (%) (Auto) 5.0H, Basophils (%) ( Auto) 1.1, Urine Color Yellow, Urine Appearance Clear, Urine pH 7, Urine Specific [place] 1.010, Urine Protein Negative, Urine Glucose (UA) Negative, Urine Ketones Negative, Urine Blood Negative, Urine Nitrite Negative, Urine Bilirubin Negative, Urine Urobilinogen 4H, Urine Leukocyte Esterase 1+H, Urine RBC 0-2H, Urine WBC 0-2, Urine Squamous Epithelial Cells None, Urine Bacteria None, Urine Mucus FewH, Sodium Level 144, Potassium Level 4.0, Chloride Level 106, Carbon Dioxide Level 27, Anion Gap 11, Blood Urea Nitrogen 15, Creatinine 1.0, Estimat Glomerular Filtration Rate > 60, Glucose Level 119H, Calcium Level 8.7, Total Bilirubin 0.2, Aspartate Amino Transf (AST/SGOT) 21, Alanine Aminotransferase (ALT/SGPT) 30, Alkaline Phosphatase 120H, Total Protein 7.6, Albumin 3.8, Globulin 3.8, Albumin/Globulin Ratio 1.0 08/01/18 18:20: Lactic Acid Level 1.20 Height (Feet): 6 Height (Inches): 1.00 Weight (Pounds): 266 Objective WDWN NAD clear breath sounds bilaterally without rhonchi or wheeze [id number] without MRG NABS nontender no HSM no CC significant edema and weeping of the leg nonfocal Subjective ROS Limited/Unobtainable: No Allergies: Coded Allergies: No Known Allergies (Unverified , 08/01/18) Objective Last 24 Hour Vital Signs Date Time Temp Pulse Resp B/P (MAP) Pulse Ox O2 Delivery O2 Flow Rate FiO2 08/04/18 16:00 98.3 70 20 144/93 (110) 98 08/04/18 12:00 98.3 65 20 141/76 (97) 97 08/04/18 09:26 62 140/77 08/04/18 09:00 Room Air 08/04/18 08:00 98.2 62 20 140/77 (98) 96 08/04/18 04:00 97.2 63 17 140/78 (98) 95 08/04/18 00:00 97.5 63 17 133/62 (85) 97 08/03/18 21:00 Room Air 08/03/18 20:00 98.6 69 16 145/81 (102) 98 Intake and Output 08/03/18 08/04/18 18:59 06:59 Intake Total 1200 ml 1025.000 ml Output Total 800 ml 800 ml Balance 400 ml 225.000 ml Intake Oral 1200 ml 700 ml IV Total 325.000 ml Output Urine Total 800 ml 800 ml # Voids 3 # Bowel Movements 1 Microbiology Date/Time Source Procedure Growth Status 08/01/18 18:20 Blood Blood Culture - Preliminary NO GROWTH AFTER 48 HOURS Resulted 08/01/18 18:05 Blood Blood Culture - Preliminary NO GROWTH AFTER 48 HOURS Resulted 08/01/18 18:20 Wound Gram Stain - Final Complete 08/01/18 18:20 Wound Culture - Final Staphylococcus Aureus Streptococcus Group G Complete 08/01/18 21:50 Foot Right Gram Stain - Final Complete 08/01/18 21:50 Wound Culture - Final Staphylococcus Aureus Streptococcus Group B Diphtheroids Complete Laboratory Tests 08/04/18 11:00: Vancomycin Level Trough 11.9 Current Medications Medications (Trade) Dose Ordered Sig/Tere Route PRN Reason Start Time Stop Time Status Last Admin Dose Admin Acetaminophen (Tylenol) 650 mg Q6H PRN ORAL Pain 1-6/Temp > 100.5 08/01/18 21:30 08/31/18 21:29 Amlodipine Besylate (Norvasc) 5 mg DAILY ORAL 08/01/18 21:45 08/31/18 21:44 08/04/18 09:26 Clindamycin HCl/ Dextrose 50 ml @ 100 mls/hr Q8HR IV 08/02/18 06:00 08/09/18 05:59 08/04/18 14:12 Diphenhydramine HCl (Benadryl) 25 mg Q6H PRN ORAL Itching 08/01/18 21:30 08/31/18 21:29 Heparin Sodium (Porcine) (Heparin 5000 units/ml) 5,000 units EVERY 12 HOURS SUBQ 08/02/18 09:00 09/01/18 08:59 08/04/18 09:27 Hydralazine HCl (Apresoline) 25 mg Q6H PRN ORAL For High Blood Pressure 08/01/18 21:30 08/31/18 21:29 Morphine Sulfate (Morphine Sulfate) 1 mg Q3H PRN IVP Severe Pain (Pain Scale 7-10) 08/01/18 21:30 08/08/18 21:29 Ondansetron HCl (Zofran) 4 mg Q8H PRN IVP Nausea & Vomiting 08/01/18 21:30 08/31/18 21:29 Vancomycin HCl (Vanco rx to dose) 1 ea DAILY PRN MISC Per rx protocol 08/03/18 10:30 09/02/18 10:29 Vancomycin HCl 1.25 gm/Dextrose 275 ml @ 183.333 mls/hr Q8H IVPB 08/03/18 20:00 08/08/18 19:59 08/04/18 11:55 Shawn Lanier MD Aug 04, 2018 17:10
--- NOTE | 2018-08-04 19:04 | NUR ---
HAND-OFF: Report given to TRACEY Conn.
--- NOTE | 2018-08-04 19:19 | NUR ---
HAND-OFF: Report given to TRACEY Castorena.
--- NOTE | 2018-08-04 19:21 | NUR ---
HAND-OFF: Report given to Senia WEBB.
--- NOTE | 2018-08-04 19:55 | NUR ---
NURSE NOTES: Received patient in bed, in stable condition. On RA, no SOB, no acute distress, no c/o pain. Dressing dry, intact on R foot. LFA IV intact, patent. Bed in lowest position, locked, alarms on. Call light in reach.
[2018-08-04 20:00] VITALS: BP 134/94
[2018-08-05] VITALS: BP 131/86
[2018-08-05] MEDS: Vancomycin 1.25mg/D5W 275ml IVPB SCH ×4 (03:30→11:57)
[2018-08-05 04:00] VITALS: BP 151/85
--- NOTE | 2018-08-05 07:10 | NUR ---
HAND-OFF: Report given to Gal WEBB.
--- NOTE | 2018-08-05 07:12 | NUR ---
NURSE NOTES: RN received report from TRACEY Conn. Pt in stable condition. No acute distress or SOB. Bed in low, locked position, call light within reach. Will continue to monitor.
--- NOTE | 2018-08-05 07:33 | NUR ---
Received patient from Senia WEBB, patient is resting in bed, no distress noted, bed is locked and in lowest position, call light within reach, will continue to monitor.
[2018-08-05 08:00] VITALS: BP 144/80
[2018-08-05] MEDS: Heparin 5000 units/ml inj SUBQ SCH (08:35)
[2018-08-05 12:00] VITALS: BP 148/86
[2018-08-05] MEDS ORDERED: CLEOCIN HCL300 MG PO (13:36)
[2018-08-05] MEDS ORDERED: NORVASC5 MG ORAL (13:37)
--- NOTE | 2018-08-05 14:24 | Surgery Progress Note ---
Surgery Progress Note Subjective Symptoms: improved, pain same, tolerating diet, passing flatus, BM Objective Last 24 Hour Vital Signs Date Time Temp Pulse Resp B/P (MAP) Pulse Ox O2 Delivery O2 Flow Rate FiO2 08/05/18 12:00 98.2 72 18 148/86 (106) 98 08/05/18 09:00 Room Air 08/05/18 08:36 80 144/80 08/05/18 08:00 98.3 80 19 144/80 (101) 99 08/05/18 04:00 98.5 82 18 151/85 (107) 100 08/05/18 00:00 98.5 68 18 131/86 (101) 100 08/04/18 21:00 Room Air 08/04/18 20:00 98.1 69 18 134/94 (107) 99 08/04/18 16:00 98.3 70 20 144/93 (110) 98 I&O Intake and Output 08/04/18 08/05/18 19:00 07:00 Intake Total 1080 ml 1350.000 ml Output Total 800 ml 1000 ml Balance 280 ml 350.000 ml Intake Oral 1080 ml 750 ml IV Total 600.000 ml Output Urine Total 800 ml 1000 ml # Voids 3 # Bowel Movements 3 1 Dressing: saturated Wound: clean Drains: none Cardiovascular: RSR Respiratory: clear Abdomen: soft, non-tender, non-distended Extremities: edema, tenderness, no cyanosis Plan Problems: (1) Cellulitis of right lower extremity Assessment & Plan: Pt presented on admission with wound of unknown etiology dorso RIGHT foot. Wound is malodorous and has puncture -like appearance with 100 % slough(L)0.6cm x (W)0.9cm. Periwound macerated and is indurated and swollen. No exudate noted from wound.Slightly elevated skin temp periwound. Pt verbalized site very painful with bearing weight on R foot. Recommendations: with patients permission / consent the sloth on wound was debrided with surgical scalpel and scissors. good underlying tissue with back bleeding noted. no abscess. Abx Cleanse wound with Saline. Apply Xeroform Gauze.Cover with Abd and wrap with Kerlix Daily and prn. Keep right lower extremity elevated while in bed Heel protectors okay to ambulate. edema improved discharge planning Israel Sears Aug 05, 2018 14:24
--- NOTE | 2018-08-05 15:51 | NUR ---
NURSE NOTES: Pt discharged in stable condition, belongings accounted for, IV and arm band removed. Discharge packet reviewed. RN advised pt to continue medications as ordered, to f/u with PCP and seek medical attention if any change in condition, including increased swelling, pain, fever. Pt verbalized understanding.
--- NOTE | 2018-08-05 16:57 | Pulmonology Progress Note ---
Assessment/Plan Assessment/Plan Pulmonary Progress Note Assessment/Plan Patient seen earlier Impression: Cellulitis R LE LE Dupplex negative for DVT H/o Hypertension Seen by surgery, ambulation OK Plan: Antibiotics - continue Clindamycin Pain medications Wound care DC - FU with PMD Subjective Allergies: Coded Allergies: No Known Allergies (Unverified , 08/01/18) Subjective same otherwise stable Objective Vital Signs Noted Laboratory Tests 08/01/18 17:50: White Blood Count 6.6, Red Blood Count 4.74, Hemoglobin 14.0L, Hematocrit 43.3, Mean Corpuscular Volume 91, Mean Corpuscular Hemoglobin 29.6, Mean Corpuscular Hemoglobin Concent 32.4, Red Cell Distribution Width 12.9, Platelet Count 173, Mean Platelet Volume 8.8, Neutrophils (%) (Auto) 52.6, Lymphocytes (%) (Auto) 29.7, Monocytes (%) (Auto) 11.6H, Eosinophils (%) (Auto) 5.0H, Basophils (%) ( Auto) 1.1, Urine Color Yellow, Urine Appearance Clear, Urine pH 7, Urine Specific [place] 1.010, Urine Protein Negative, Urine Glucose (UA) Negative, Urine Ketones Negative, Urine Blood Negative, Urine Nitrite Negative, Urine Bilirubin Negative, Urine Urobilinogen 4H, Urine Leukocyte Esterase 1+H, Urine RBC 0-2H, Urine WBC 0-2, Urine Squamous Epithelial Cells None, Urine Bacteria None, Urine Mucus FewH, Sodium Level 144, Potassium Level 4.0, Chloride Level 106, Carbon Dioxide Level 27, Anion Gap 11, Blood Urea Nitrogen 15, Creatinine 1.0, Estimat Glomerular Filtration Rate > 60, Glucose Level 119H, Calcium Level 8.7, Total Bilirubin 0.2, Aspartate Amino Transf (AST/SGOT) 21, Alanine Aminotransferase (ALT/SGPT) 30, Alkaline Phosphatase 120H, Total Protein 7.6, Albumin 3.8, Globulin 3.8, Albumin/Globulin Ratio 1.0 08/01/18 18:20: Lactic Acid Level 1.20 Height (Feet): 6 Height (Inches): 1.00 Weight (Pounds): 266 Objective WDWN NAD clear breath sounds bilaterally without rhonchi or wheeze [id number] without MRG NABS nontender no HSM Leg CDI nonfocal Subjective ROS Limited/Unobtainable: No Allergies: Coded Allergies: No Known Allergies (Unverified , 08/01/18) Objective Last 24 Hour Vital Signs Date Time Temp Pulse Resp B/P (MAP) Pulse Ox O2 Delivery O2 Flow Rate FiO2 08/05/18 12:00 98.2 72 18 148/86 (106) 98 08/05/18 09:00 Room Air 08/05/18 08:36 80 144/80 08/05/18 08:00 98.3 80 19 144/80 (101) 99 08/05/18 04:00 98.5 82 18 151/85 (107) 100 08/05/18 00:00 98.5 68 18 131/86 (101) 100 08/04/18 21:00 Room Air 08/04/18 20:00 98.1 69 18 134/94 (107) 99 Intake and Output 08/04/18 08/05/18 18:59 06:59 Intake Total 1080 ml 1350.000 ml Output Total 800 ml 1000 ml Balance 280 ml 350.000 ml Intake Oral 1080 ml 750 ml IV Total 600.000 ml Output Urine Total 800 ml 1000 ml # Voids 3 # Bowel Movements 3 1 Shawn Lanier MD Aug 05, 2018 16:57
--- NOTE | 2018-08-07 10:57 | Discharge Summary ---
Discharge Summary Discharge Summary _ DATE OF ADMISSION: 08/01/2018 DATE OF DISCHARGE: 08/05/2018 DISCHARGED BY: Dr. Staples REASON FOR ADMISSION: 53 years old male with past medical history of hypertension tuberculosis in the childhood, presented to emergency room for evaluation due to right leg pain and swelling for 1 week. Pain described as throbbing nonradiating 10 out of 10 on a scale 1-10. Patient denied any trauma fall or injury. Patient denies chest pain or shortness of breath. Patient denied fever and chills. Upon evaluation blood pressure was severely elevated 170/81. Pulse oximeter was stable on room air. Laboratory workup revealed no leukocytosis stable hemoglobin hematocrit. Urinalysis revealed no evidence of UTI. Stable electrolytes and renal parameters. Glucose 119. Stable LFT. Lactic acid 1.2. Venous duplex bilateral lower extremity revealed no evidence of acute DVT. Physical examination revealed erythema in duration right lower extremity with a discharge consistent with cellulitis. Patient was admitted to medical surgical floor for further management CONSULTANTS: ID specialist Dr. Pratt surgery Dr. Sears [facility] COURSE: Patient admitted to medical surgical floor and started on empiric antibiotics. X-ray of the right foot revealed soft tissue swelling and hallux valgus. General surgeon followed. Right foot ulcer was debrided with good underlying tissue noted . No evidence of abscess. Wound care provided as per surgeon recommendation. Heel protectors provided. Surgeon cleared patient to ambulate. Blood cultures were negative. Wound culture revealed Staph aureus and Strep group B. Antibiotic regimen was optimized as per ID recommendation. Patient will need to complete antibiotics at home for additional 5 days as recommended by ID specialist. Blood pressure was managed with calcium channel rob and remained stable . DVT prophylaxis provided. Pain management was addressed as needed. Supportive care provided. Patient clinically stabilized and was ready for discharge home. FINAL DIAGNOSES: Right foot cellulitis Right foot ulcer with Staph aureus and beta-hemolytic Strep Hypertension DISCHARGE MEDICATIONS: See Medication Reconciliation list. DISCHARGE INSTRUCTIONS: Patient was discharged home. Follow up with primary care provider in one week. I have been assigned to dictate discharge summary for this account. I was not involved in the patient's management. Yenni Acevedo NP Aug 07, 2018 10:57
== END 2018-08-05 15:35 | disposition home or self-care (01) | DRG 383 ==
LOC: EMR 18:10 → 4E 19:20 → EDBEDREQ 20:20 → 4E 08-02 06:09
DX: L03.115 Cellulitis of right lower limb (principal); L97.519 Non-pressure chronic ulcer of other part of right foot with unspecified severity; I10 Essential (primary) hypertension; A49.01 Methicillin susceptible Staphylococcus aureus infection, unspecified site; B95.4 Other streptococcus as the cause of diseases classified elsewhere; Z86.11 Personal history of tuberculosis
CPT/HCPCS: 36415; 80048; 80053; 80202; 81003; 83605; 85025; 87040; 87070; 87181; 87205; 93971; 96361; 96365; 99285; S0077

== ENCOUNTER 2018-10-29 09:39 | Emergency (ER) | payer SELFPAY ==
[~2018-10-29] VITALS: Ht 185.4 cm; Wt 124.7 kg
[~2018-10-29 09:39] MED LIST: CLEOCIN HCL300 MG PO; NKM; NORVASC5 MG ORAL
--- NOTE | 2018-10-29 09:40 | NUR ---
ED Nurse Note: PT. NOT IN THE WAITING ROOM UPON BEING CALLED FOR TRIAGE
[2018-10-29 10:13] VITALS: BP 152/87
--- NOTE | 2018-10-29 10:15 | NUR ---
ED Nurse Note:pt. came from home with bilateral lower feet pain and edema, he is A/Ox4 ambulatory, no signs of distress noted, pt. was placed on monitoring analyst
[2018-10-29] MEDS ORDERED: CLINDAMYCIN HC300 MG ORAL (10:34)
[2018-10-29] MEDS ORDERED: FUROSEMIDE40 MG ORAL (10:34)
[2018-10-29 11:16] VITALS: BP 150/79
[2018-10-29 11:17] VITALS: BP 150/79
--- NOTE | 2018-10-29 11:18 | NUR ---
ER DISCHARGE NOTE: Patient is cleared to be discharged per ERMD, pt is aox4, on room air, with stable vital signs. pt was given dc and prescription instructions, pt was able to verbalize understanding, pt is able to ambulate with steady gait. pt took all belongings.
--- NOTE | 2018-10-29 14:04 | Emergency Room Report ---
History of Present Illness General Chief Complaint: Edema Source: Patient Present Illness HPI Patient presents with complaints of bilateral leg swelling reports that has not seen any physician or take any medications since his discharge 2 months ago Denies any shortness of breath denies any fevers patient reports some difficulty with follow-up for medication and insurance purposes Denies any back or flank pain Allergies: Coded Allergies: No Known Allergies (Unverified , 08/01/18) Patient History Past Medical History: see triage record Pertinent Family History: none Reviewed Nursing Documentation: PMH: Agreed; PSxH: Agreed Nursing Documentation-PMH Past Medical History: No History, Except For Hx Hypertension: Yes Review of Systems All Other Systems: negative except mentioned in HPI Physical Exam Vital Signs Date Time Temp Pulse Resp B/P (MAP) Pulse Ox O2 Delivery O2 Flow Rate FiO2 10/29/18 09:46 97.9 92 20 165/81 (109) 99 Room Air Sp02 EP Interpretation: reviewed, normal General Appearance: well appearing, no apparent distress Head: normocephalic, atraumatic Eyes: bilateral eye PERRL, bilateral eye EOMI ENT: hearing grossly normal, normal pharynx, TMs + canals normal, uvula midline Neck: full range of motion, supple, no meningismus, no bony tend Respiratory: lungs clear, normal breath sounds, no rhonchi, no respiratory distress, no retraction, no accessory muscle use Cardiovascular #1: normal peripheral pulses, regular rate, rhythm, no gallop, no JVD, no murmur Gastrointestinal: normal bowel sounds, non tender, soft, no mass, no organomegaly, non-distended, no guarding, no hernia, no pulsatile mass, no rebound Genitourinary: no CVA tenderness Musculoskeletal: other - Edema bilaterally mild stasis erythema as well bilateral legs no obvious open wounds Neurologic: oriented x3, responsive, sensory intact Psychiatric: mood/affect normal Skin: other - As above Lymphatic: other - Lymphedema bilaterally Medical Decision Making Diagnostic Impression: Primary Impression: leg edema ER Course Multiple differentials and consideration including but not limited to cardiac, cardiopulmonary, vascular pathology patient has had fairly extensive recent hospitalization and work-up Patient has not been taking any medications This is likely leading to worsening symptoms and edema Patient requires improved outpatient follow-up and care Medication as prescribed and patient requires repeat evaluation on urgent basis Last Vital Signs Date Time Temp Pulse Resp B/P (MAP) Pulse Ox O2 Delivery O2 Flow Rate FiO2 10/29/18 11:17 97.9 82 17 150/79 99 Room Air Status: unchanged Disposition: HOME, SELF-CARE Condition: Stable Scripts Clindamycin Hcl (CLINDAMYCIN HCL) 300 Mg Capsule 300 MG ORAL THREE TIMES A DAY, #21 CAP Prov: Wade Oh DO 10/29/18 Furosemide* (LASIX*) 40 Mg Tablet 40 MG ORAL DAILY, #12 TAB Prov: Wade Oh DO 10/29/18 Referrals: NOT CHOSEN IPA/,REFERRING (PCP) [facility] Katharina Johnston [facility] ER - Peds ER - Patient Instructions: Edema, [id number], Peripheral Edema Additional Instructions: Patient is provided with the discharge instructions notified to follow up with primary doctor in the next 2-3 days otherwise return to the er with any worsening symptoms. Please note that this report is being documented using [employer] technology. This can lead to erroneous entry secondary to incorrect interpretation by the dictating instrument. Wade Oh DO Oct 29, 2018 14:04
== END 2018-10-29 11:25 | disposition home or self-care (01) ==
LOC: EMR 10:28
DX: R60.0 Localized edema (principal); I10 Essential (primary) hypertension
CPT/HCPCS: 99282

== ENCOUNTER 2019-06-25 09:33 | Inpatient (IN) | payer SELFPAY ==
[2019-06-25] VITALS (7 sets, daily range): BP systolic 123–155; BP diastolic 42–174
[~2019-06-25] VITALS: Ht 188 cm; Wt 132.6 kg
[~2019-06-25 09:33] MED LIST changes: +CLINDAMYCIN HC300 MG ORAL; +FUROSEMIDE40 MG ORAL
--- NOTE | 2019-06-25 09:44 | NUR ---
ED Nurse Note: Pt ambulated to ED d/t edema on bilateral lower extremities. Pt stated "I feel like both of my legs and my balls are swollen like a cantalope for a couple of weeks." Placed on bed and gown; hooked to batter depositor, noted pt satting at 99% on RA. Will continue to monitor.
[2019-06-25] MEDS ORDERED: Nitroglycerin 2% oint pkt TOPIC ONE (09:45)
--- NOTE | 2019-06-25 09:45 | NUR ---
Note ceci in EDM - 06/25/19 at 1035 by KAREN ED Nurse Note: Pt ambulated to ED d/t edema with bilateral lower extremities. Pt stated "I feel like both of my legs and my balls are swollen like a cantalope for a couple of weeks." Placed on bed and gown; hooked to monitor car operator, noted pt satting at 99% on RA. Will continue to monitor.
--- NOTE | 2019-06-25 09:58 | Emergency Room Report ---
History of Present Illness General Chief Complaint: Edema Source: Patient Present Illness HPI 54-year-old male presents with bilateral lower extremity swelling, scrotal swelling times months acutely worsening over the past few days, now with shortness of breath dyspnea on exertion some chest discomfort no nausea no vomiting patient feels more short of breath while walking and doing activity he denies any current chest pain patient presents for evaluation Allergies: Coded Allergies: No Known Allergies (Unverified , 08/01/18) Patient History Social History: Reports: alcohol use Reviewed Nursing Documentation: PMH: Agreed; PSxH: Agreed Nursing Documentation-PMH Past Medical History: No History, Except For Hx Hypertension: Yes Review of Systems All Other Systems: negative except mentioned in HPI Physical Exam Vital Signs Date Time Temp Pulse Resp B/P (MAP) Pulse Ox O2 Delivery O2 Flow Rate FiO2 06/25/19 09:34 98.2 106 22 156/91 (112) 97 Room Air Sp02 EP Interpretation: reviewed, normal General Appearance: well appearing, no apparent distress, alert Head: normocephalic, atraumatic Eyes: bilateral eye PERRL, bilateral eye EOMI ENT: uvula midline, moist mucus membranes Neck: supple, thyroid normal, supple/symm/no masses Respiratory: decreased breath sounds - Bilaterally, accessory muscle use, speaking full sentences Cardiovascular #1: normal peripheral pulses, no edema, no gallop, no murmur, tachycardia Gastrointestinal: non tender, soft, no guarding, no rebound Musculoskeletal: normal inspection Neurologic: alert, oriented x3 Psychiatric: mood/affect normal Skin: no rash, warm/dry Medical Decision Making Diagnostic Impression: Primary Impression: Edema Qualified Codes: R60.9 - Edema, unspecified Additional Impressions: Chest pain Qualified Codes: R07.9 - Chest pain, unspecified SOB (shortness of breath) ER Course 54-year-old male presents with chest pain, shortness of breath, concerning for possible CHF exacerbation, Aspirin, Lasix, given to patient EKG chest x-ray negative however patient has increased weight gain tachycardia and also shortness of breath Patient to be admitted to Dr. San Laboratory Tests Test 06/25/19 09:46 White Blood Count 10.4 K/UL (4.8-10.8) Red Blood Count 4.41 M/UL (4.70-6.10) L Hemoglobin 12.7 G/DL (14.2-18.0) L Hematocrit 38.7 % (42.0-52.0) L Mean Corpuscular Volume 88 FL (80-99) Mean Corpuscular Hemoglobin 28.7 PG (27.0-31.0) Mean Corpuscular Hemoglobin Concent 32.7 G/DL (32.0-36.0) Red Cell Distribution Width 13.6 % (11.6-14.8) Platelet Count 219 K/UL (150-450) Mean Platelet Volume 7.9 FL (6.5-10.1) Neutrophils (%) (Auto) 69.1 % (45.0-75.0) Lymphocytes (%) (Auto) 11.6 % (20.0-45.0) L Monocytes (%) (Auto) 14.3 % (1.0-10.0) H Eosinophils (%) (Auto) 3.4 % (0.0-3.0) H Basophils (%) (Auto) 1.6 % (0.0-2.0) Sodium Level 142 MMOL/L (136-145) Potassium Level 3.4 MMOL/L (3.5-5.1) L Chloride Level 104 MMOL/L (98-107) Carbon Dioxide Level 31 MMOL/L (21-32) Anion Gap 7 mmol/L (5-15) Blood Urea Nitrogen 15 mg/dL (7-18) Creatinine 1.0 MG/DL (0.55-1.30) Estimate Glomerular Filtration Rate > 60 mL/min (>60) Glucose Level 93 MG/DL (74-106) Calcium Level 9.1 MG/DL (8.5-10.1) Total Bilirubin 0.5 MG/DL (0.2-1.0) Aspartate Amino Transferase (AST) 109 U/L (15-37) H Alanine Aminotransferase (ALT) 89 U/L (12-78) H Alkaline Phosphatase 98 U/L (46-116) Troponin I 0.000 ng/mL (0.000-0.056) Pro-B-Type Natriuretic Peptide 88 pg/mL (0-125) Total Protein 7.8 G/DL (6.4-8.2) Albumin 2.9 G/DL (3.4-5.0) L Globulin 4.9 g/dL Albumin/Globulin Ratio 0.6 (1.0-2.7) L EKG Diagnostic Results EKG Time: 09:59 EP Interpretation: Sinus tachycardia, rate 102, QTc 463, no acute ST elevations , normal axis Rhythm Strip Diag. Results Rhythm Strip Time: 10:00 EP Interpretation: yes Rate: 100 Rhythm: other - Normal sinus rhythm Chest X-Ray Diagnostic Results Chest X-Ray Diagnostic Results : Chest X-Ray Ordered: Yes # of Views/Limited/Complete: 1 View Indication: Shortness of Breath EP Interpretation: Yes Interpretation: no consolidation, no effusion, no pneumothorax, no acute cardiopulmonary disease Impression: No acute disease Electronically Signed by: Karthik Brandt MD Last Vital Signs Date Time Temp Pulse Resp B/P (MAP) Pulse Ox O2 Delivery O2 Flow Rate FiO2 06/25/19 09:34 98.2 106 22 156/91 (112) 97 Room Air Disposition: ADMITTED INPATIENT Condition: Stable Karthik Brandt MD Jun 25, 2019 09:58
[2019-06-25 10:16] LABS: BASOPHILS % (AUTO) 1.6 % (0.0-2.0); EOSINOPHILS % (AUTO) 3.4 % (0.0-3.0); HEMATOCRIT 38.7 % (42.0-52.0); HEMOGLOBIN 12.7 G/DL (14.2-18.0); LYMPHOCYTES % (AUTO) 11.6 % (20.0-45.0); MEAN CORPUSCULAR VOLUME 88 FL (80-99); MONOCYTES % (AUTO) 14.3 % (1.0-10.0); NEUTROPHILS % (AUTO) 69.1 % (45.0-75.0); PLATELET COUNT 219 K/UL (150-450); RED BLOOD COUNT 4.41 M/UL (4.70-6.10); RED CELL DISTRIBUTION WIDTH 13.6 % (11.6-14.8); WHITE BLOOD COUNT 10.4 K/UL (4.8-10.8)
--- NOTE | 2019-06-25 10:17 | Diagnostic Imaging Report ---
Indication: Shortness of Technique: One view of the chest Comparison: none Findings: Body habitus limits evaluation. The heart is borderline enlarged. There is equivocal minimal interstitial congestion. No focal airspace consolidation. The right costophrenic angle is not visualized, small effusion possible. Impression: For myocardial may Equivocal intimal interstitial congestion-correlate with clinical findings Possible small right pleural effusion
--- NOTE | 2019-06-25 10:21 | NUR ---
ED Nurse Note: Latest BP: 151/74. Pt denies feeling of dizziness nor chest pain right now.
[2019-06-25 10:28] LABS: ANION GAP 7 mmol/L (5-15); BLOOD UREA NITROGEN 15 mg/dL (7-18); CALCIUM 9.1 MG/DL (8.5-10.1); CARBON DIOXIDE 31 MMOL/L (21-32); CHLORIDE 104 MMOL/L (98-107); POTASSIUM 3.4 MMOL/L (3.5-5.1); SODIUM 142 MMOL/L (136-145)
[2019-06-25 10:40] LABS: ALANINE AMINOTRANSFERASE 89 U/L (12-78); ALBUMIN 2.9 G/DL (3.4-5.0); ALBUMIN/GLOBULIN RATIO 0.6 (1.0-2.7); ALKALINE PHOSPHATASE 98 U/L (46-116); ASPARTATE AMINO TRANSFERASE 109 U/L (15-37); BILIRUBIN,TOTAL 0.5 MG/DL (0.2-1.0)
--- NOTE | 2019-06-25 14:00 | NUR ---
TRANSFER TO FLOOR: Patient transferred to Telemetry as ordered, per Dr. San . Report given to Urmila WEBB. Belongings and medications given to receiving nurse. Family and or S/O informed of transfer.
--- NOTE | 2019-06-25 14:00 | NUR ---
NURSE NOTES: Patient's admitted from ER to Tele floor by dr. San's order. Patient is in stable condition. Patient arrived to the floor when nurse's on lunch and Charge nurse Janell was at bedside to admit the patient. Belonging list went over with the ER nurse and Charge nurse at bedside. ekg monitor tech applied. IV is saline locked, patent and asymptomatic. Charge nurse informed that patient would like to keep his money in the safe; called malt house operator to come get the money and malt house operator told she will be there shortly. Bed low and locked, call light within reach, side rails x 3. Vital signs: BP 155/99; HR 102, RR 18, Temp 98.4, O2 96%. Left message to Dr. San regarding the new admission orders. Awaiting for response.
[2019-06-25] MEDS ORDERED: Acetaminophen 500mg (ES) tab ORAL PRN (15:00)
--- NOTE | 2019-06-25 15:48 | NUR ---
NURSE NOTES: Dr San gave admission orders for the patient : continue home meds, full code, no DVT/VTE d/t contraindication of bilateral legs edema, cardiac/low sodium diet, morning labs, Tylenol 500mg PO Q4hr PRN, venous duplex bilateral legs, off tele order for patient can have shower, social service consult d/t patient's homeless. Orders acknowledged and carried out.
[2019-06-25] MEDS ORDERED: Clindamycin 150mg cap ORAL SCH ×2 (18:00)
--- NOTE | 2019-06-25 19:43 | NUR ---
HAND-OFF: Report given to TRACEY Ackerman. Patient's stable, plan of care endorsed.
--- NOTE | 2019-06-25 19:43 | NUR ---
NURSE NOTES: Received patient from Urmila RN, patient in stable condition, sleeping, responsive to stimuli, no distress, IV site on R A/C g18, bed low&locked, side rails upx2, call light within reach, will continue to monitor and reassess
--- NOTE | 2019-06-25 21:45 | History and Physical Report ---
DATE OF ADMISSION: 06/25/2019 HISTORY OF PRESENT ILLNESS: The patient is found and is admitted for CHF exacerbation and has enlarged heart, shortness of breath, obesity, tachycardia, hypokalemia. The patient is disheveled, very poor hygiene, homeless, very bad looking feet, and edematous including scrotal edema all over. The patient has neglected himself. PAST MEDICAL HISTORY: None known. PAST SURGICAL HISTORY: None. SOCIAL HISTORY: He has history of smoking, possible history of alcohol abuse. Homeless. ALLERGIES: No known allergies. MEDICATIONS: None. FAMILY HISTORY: Noncontributory. REVIEW OF SYSTEMS: HEENT: Denies headaches. RESPIRATORY: Denies shortness of breath. Denies cough. CARDIOVASCULAR: Denies chest pain. Does have orthopnea. GASTROINTESTINAL: Denies nausea, vomiting, or diarrhea. Does have worsening edema all over. CENTRAL NERVOUS SYSTEM: Denies any change in speech pattern. Does have scrotal edema as well. PHYSICAL EXAMINATION: VITAL SIGNS: Temperature is 98.2, pulse is 105, blood pressure is 123/42. HEENT: PERRLA. NECK: Supple. No lymphadenopathy. CHEST: Clear to auscultation. CARDIOVASCULAR: Regular rate and rhythm. No murmurs or extra sounds. GASTROINTESTINAL: Soft, distended. Positive bowel sounds. EXTREMITIES: The patient is edematous all over including scrotal edema. The patient's feet are horrible in terms of hygiene. The toenails have not been clipped either. Dorsalis pedalis pulses are present. LABORATORY DATA: WBC of 10.4, hemoglobin 12.7, and platelets of 219. Sodium 142, potassium 3.4, BUN of 15, creatinine 1, glucose 93. Troponin is negative. ASSESSMENT AND PLAN: CHF exacerbation, hypokalemia, obesity, pulmonary edema on the x-ray. I have asked Dr. Manzo, Dr. Snyder, Dr. Chaidez to help with the management of the pulmonary edema and CHF exacerbation and edema. We will need to get also placement because the patient is homeless. Wade San M.D. DR: BETSY JOB#: [id number] CC:
[2019-06-26] VITALS: BP 131/73
--- NOTE | 2019-06-26 01:00 | Consultation ---
DATE OF CONSULTATION: 06/25/2019 PULMONARY CONSULTATION HISTORY OF PRESENT ILLNESS: This is a 54-year-old male with a history of alcohol use and hypertension, who came to the hospital with lower extremity edema. He also reports scrotal edema. The patient denies any cough, however, he reports shortness of breath and chest congestion. He feels on exertion. PAST HISTORY: Alcohol use and hypertension. PREVIOUS SURGERIES: None. HOME MEDICATIONS: Reviewed and reconciled in chart. REVIEW OF SYSTEMS: Denies any headaches, hematemesis, melena, or hematochezia. PHYSICAL EXAMINATION: GENERAL: Reveals a 54-year-old male. HEENT: Unremarkable. CHEST: Diminished breath sounds bilaterally with normal heart sounds. ABDOMEN: Soft. EXTREMITIES: There is 2+ edema. LABORATORY DATA: Lab testing shows normal CBC and BMP with a creatinine of 1.0. Troponins negative. IMAGING STUDIES: An x-ray of the chest was obtained, which showed a small right pleural effusion and evidence of cardiomegaly. IMPRESSION: 1. Probable pulmonary edema. 2. Hypertension. DISCUSSION: 1. Admitted to the hospital. 2. Blood pressure controlled. 3. Start diuresis. 4. We will follow roller die cutting machine operator's order, oxygen and pulmonary hygiene. 5. We will follow carefully. Akira Chaidez M.D. DR: JANAE JOB#: [id number] CC:
[2019-06-26 04:00] VITALS: BP 130/82
--- NOTE | 2019-06-26 07:20 | NUR ---
NURSE NOTES: Nurse report given by TRACEY Ackerman. Patient's sleeping in bed, but easily awaken, eyes open spontaneously, breathing regular and unlabored, no s/s of distress or SOB, denies pain, denies chest pain, complained slightly discomfort on bilateral legs and scrotal. Bed low and locked, call light within reach, side rails x2, radio communication coordinator is on. IV is saline locked, patent and asymptomatic. Will continue to monitor.
--- NOTE | 2019-06-26 07:21 | NUR ---
HAND-OFF: Report given to TRACEY Kearns, patient in stable condition,plan of care endorsed.
--- NOTE | 2019-06-26 07:36 | Pulmonology Progress Note ---
Assessment/Plan Assessment/Plan IMPRESSION: 1. Pulmonary edema. 2. Hypertension. DISCUSSION: 1. Continue present care 2. Blood pressure control. 3. Start diuresis. 4. 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 5. Check duplex LE Akira Chaidez M.D. Subjective Interval Events: States he is feeling better Constitutional: Reports: no symptoms HEENT: Repors: no symptoms Respiratory: Reports: no symptoms Cardiovascular: Reports: no symptoms Gastrointestinal/Abdominal: Reports: no symptoms Allergies: Coded Allergies: No Known Allergies (Unverified , 08/01/18) Objective Last 24 Hour Vital Signs Date Time Temp Pulse Resp B/P (MAP) Pulse Ox O2 Delivery O2 Flow Rate FiO2 06/26/19 04:00 96 06/26/19 04:00 98.6 100 18 130/82 (98) 96 91 06/26/19 00:00 96 06/26/19 00:00 98.6 100 20 131/73 (92) 96 89 06/25/19 21:00 Room Air 06/25/19 20:00 97.7 97 20 134/70 (91) 94 89 06/25/19 20:00 103 06/25/19 16:00 96 06/25/19 16:00 96.7 89 19 141/80 (100) 100 89 06/25/19 14:30 Room Air 06/25/19 14:05 102 06/25/19 14:00 98.4 102 18 155/99 (117) 96 06/25/19 14:00 98.2 101 20 130/68 98 Room Air 06/25/19 12:31 98.2 101 25 133/67 95 Room Air 06/25/19 11:17 98.2 105 20 123/42 96 Room Air 06/25/19 10:34 98.2 99 24 151/74 99 Room Air 06/25/19 10:02 156/91 06/25/19 09:45 98.2 81 22 151/174 97 Room Air 06/25/19 09:45 106 22 Room Air 06/25/19 09:34 98.2 106 22 156/91 (112) 97 Room Air Intake and Output 06/25/19 06/26/19 19:00 07:00 Intake Total 340 ml Balance 340 ml Intake Oral 340 ml # Voids 2 General Appearance: no acute distress HEENT: normocephalic Respiratory/Chest: chest wall non-tender, lungs clear Cardiovascular: normal peripheral pulses, normal rate Abdomen: normal bowel sounds Laboratory Tests 06/25/19 09:46: White Blood Count 10.4, Red Blood Count 4.41L, Hemoglobin 12.7L, Hematocrit 38.7L, Mean Corpuscular Volume 88, Mean Corpuscular Hemoglobin 28.7, Mean Corpuscular Hemoglobin Concent 32.7, Red Cell Distribution Width 13.6, Platelet Count 219, Mean Platelet Volume 7.9, Neutrophils (%) (Auto) 69.1, Lymphocytes (% ) (Auto) 11.6L, Monocytes (%) (Auto) 14.3H, Eosinophils (%) (Auto) 3.4H, Basophils (%) (Auto) 1.6, Sodium Level 142, Potassium Level 3.4L, Chloride Level 104, Carbon Dioxide Level 31, Anion Gap 7, Blood Urea Nitrogen 15, Creatinine 1.0, Estimat Glomerular Filtration Rate > 60, Glucose Level 93, Calcium Level 9.1, Total Bilirubin 0.5, Aspartate Amino Transf (AST/SGOT) 109H, Alanine Aminotransferase (ALT/SGPT) 89H, Alkaline Phosphatase 98, Troponin I 0.000, Pro-B-Type Natriuretic Peptide 88, Total Protein 7.8, Albumin 2.9L, Globulin 4.9, Albumin/Globulin Ratio 0.6L 06/26/19 07:00: White Blood Count [Pending], Red Blood Count [Pending], Hemoglobin [Pending], Hematocrit [Pending], Mean Corpuscular Volume [Pending], Mean Corpuscular Hemoglobin [Pending], Mean Corpuscular Hemoglobin Concent [Pending], Red Cell Distribution Width [Pending], Platelet Count [Pending], Mean Platelet Volume [ Pending], Neutrophils (%) (Auto) [Pending], Lymphocytes (%) (Auto) [Pending], Monocytes (%) (Auto) [Pending], Eosinophils (%) (Auto) [Pending], Basophils (%) (Auto) [Pending], Sodium Level [Pending], Potassium Level [Pending], Chloride Level [Pending], Carbon Dioxide Level [Pending], Blood Urea Nitrogen [Pending], Creatinine [Pending], Estimat Glomerular Filtration Rate [Pending], Glucose Level [Pending], Calcium Level [Pending], Total Bilirubin [Pending], Aspartate Amino Transf (AST/SGOT) [Pending], Alanine Aminotransferase (ALT/SGPT) [Pending] , Alkaline Phosphatase [Pending], Troponin I [Pending], Total Protein [Pending] , Albumin [Pending], Globulin [Pending] Current Medications Medications (Trade) Dose Ordered Sig/Tere Route PRN Reason Start Time Stop Time Status Last Admin Dose Admin Acetaminophen (Tylenol) 500 mg Q4H PRN ORAL Mild Pain/Temp > 100.5 06/25/19 15:00 07/25/19 14:59 Amlodipine Besylate (Norvasc) 5 mg DAILY ORAL 06/26/19 09:00 07/26/19 08:59 Furosemide (Lasix) 40 mg DAILY ORAL 06/26/19 09:00 07/26/19 08:59 Akira Chaidez MD Jun 26, 2019 07:36
[2019-06-26 07:46] LABS: BASOPHILS % (AUTO) 2.9 % (0.0-2.0); EOSINOPHILS % (AUTO) 4.7 % (0.0-3.0); HEMATOCRIT 37.3 % (42.0-52.0); HEMOGLOBIN 12.2 G/DL (14.2-18.0); MEAN CORPUSCULAR VOLUME 88 FL (80-99); MONOCYTES % (AUTO) 10.9 % (1.0-10.0); NEUTROPHILS % (AUTO) 65.6 % (45.0-75.0); PLATELET COUNT 145 K/UL (150-450); RED BLOOD COUNT 4.22 M/UL (4.70-6.10); RED CELL DISTRIBUTION WIDTH 14.2 % (11.6-14.8); WHITE BLOOD COUNT 8.9 K/UL (4.8-10.8)
[2019-06-26 08:00] VITALS: BP 141/80
[2019-06-26 08:05] LABS: ALANINE AMINOTRANSFERASE 73 U/L (12-78); ALBUMIN 2.3 G/DL (3.4-5.0); ALBUMIN/GLOBULIN RATIO 0.6 (1.0-2.7); ALKALINE PHOSPHATASE 91 U/L (46-116); ANION GAP 14 mmol/L (5-15); ASPARTATE AMINO TRANSFERASE 62 U/L (15-37); BILIRUBIN,TOTAL 0.6 MG/DL (0.2-1.0); BLOOD UREA NITROGEN 12 mg/dL (7-18); CALCIUM 8.6 MG/DL (8.5-10.1); CARBON DIOXIDE 22 MMOL/L (21-32); CHLORIDE 106 MMOL/L (98-107); CREATININE 0.8 MG/DL (0.55-1.30); POTASSIUM 4.5 MMOL/L (3.5-5.1); SODIUM 142 MMOL/L (136-145)
[2019-06-26] MEDS ORDERED: Furosemide 40mg tab ORAL SCH (09:00)
--- NOTE | 2019-06-26 09:56 | NUR ---
0NURSE NOTES: Offered patient to have shower, Dr. San ordered patient to have shower but patient refused at this time.
--- NOTE | 2019-06-26 10:17 | NUR ---
SMOKE JUMPER CONSULT SW received a consult for homelessness. SW met w/ pt and completed the assessment. Pt presents as A&O4x, and malodorous. Pt has been homeless since last year. 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 Pt provided emergency contact: Sadia Keith (sister) [phone]. Pt is single, never and has no children. Pt does not receive [place] aid/food stamp. Pt initially informed SW that he will return to work upon DC. then, pt states he will not consider going back to work or reduce his work hours. Pt reports he wants to get his own place. Pt does not want to consider board and care/independent living facilities. Pt reports he does not want to share a room with other people. SW encouraged pt to consider a safe dc placement i.e. licensed facilities but pt refused. BRIDGER N/A. Pt denies current substance/tobacco use. Pt declined counseling/tx intervention. SW provided a list of homeless shelters, homeless service agencies, emergency shelters and independent living facilities in case if he reconsiders. Pt states he will review the list. Pt is indecisive, considering going to one of his 4 sister's houses or shelters. SW encouraged pt to verbalize his needs/concerns. Pt verbalized understanding. LUCI will continue to F/U. Signed: 06/26/19 at 1024 by FRED VERMA <Co-Signature Required>
--- NOTE | 2019-06-26 10:26 | Diagnostic Imaging Report ---
. Indication: Bilateral leg edema and pain Technique: Grayscale and duplex images of the bilateral lower extremity veins Comparison: Findings: Bilaterally, grayscale and duplex images demonstrate no evidence of intraluminal thrombus. Normal phasic Doppler waveforms, demonstrating normal augmentation response and no evidence of valvular insufficiency. Greater saphenous vein(s) and tibial veins are patent. Normal compressibility. Note that the calf veins are poorly visualized due to overlying soft tissue edema Impression: Negative for evidence of lower extremity deep venous thrombosis bilaterally
[2019-06-26 11:49] VITALS: BP 142/81
--- NOTE | 2019-06-26 11:50 | Cardiac Electrophysiology PN ---
Subjective Subjective [id number] Objective Last 24 Hour Vital Signs Date Time Temp Pulse Resp B/P (MAP) Pulse Ox O2 Delivery O2 Flow Rate FiO2 06/26/19 09:50 94 141/80 06/26/19 09:00 Room Air 06/26/19 08:00 94 06/26/19 08:00 97.8 94 20 141/80 (100) 97 94 06/26/19 04:00 96 06/26/19 04:00 98.6 100 18 130/82 (98) 96 91 06/26/19 00:00 96 06/26/19 00:00 98.6 100 20 131/73 (92) 96 89 06/25/19 21:00 Room Air 06/25/19 20:00 97.7 97 20 134/70 (91) 94 89 06/25/19 20:00 103 06/25/19 16:00 96 06/25/19 16:00 96.7 89 19 141/80 (100) 100 89 06/25/19 14:30 Room Air 06/25/19 14:05 102 06/25/19 14:00 98.4 102 18 155/99 (117) 96 06/25/19 14:00 98.2 101 20 130/68 98 Room Air 06/25/19 12:31 98.2 101 25 133/67 95 Room Air Intake and Output 06/25/19 06/26/19 19:00 07:00 Intake Total 340 ml Balance 340 ml Intake Oral 340 ml # Voids 2 Laboratory Tests Test 06/26/19 07:00 White Blood Count 8.9 K/UL (4.8-10.8) Red Blood Count 4.22 M/UL (4.70-6.10) L Hemoglobin 12.2 G/DL (14.2-18.0) L Hematocrit 37.3 % (42.0-52.0) L Mean Corpuscular Volume 88 FL (80-99) Mean Corpuscular Hemoglobin 28.8 PG (27.0-31.0) Mean Corpuscular Hemoglobin Concent 32.6 G/DL (32.0-36.0) Red Cell Distribution Width 14.2 % (11.6-14.8) Platelet Count 145 K/UL (150-450) L Mean Platelet Volume 7.7 FL (6.5-10.1) Neutrophils (%) (Auto) 65.6 % (45.0-75.0) Lymphocytes (%) (Auto) 16.0 % (20.0-45.0) L Monocytes (%) (Auto) 10.9 % (1.0-10.0) H Eosinophils (%) (Auto) 4.7 % (0.0-3.0) H Basophils (%) (Auto) 2.9 % (0.0-2.0) H Sodium Level 142 MMOL/L (136-145) Potassium Level 4.5 MMOL/L (3.5-5.1) Chloride Level 106 MMOL/L (98-107) Carbon Dioxide Level 22 MMOL/L (21-32) Anion Gap 14 mmol/L (5-15) Blood Urea Nitrogen 12 mg/dL (7-18) Creatinine 0.8 MG/DL (0.55-1.30) Estimat Glomerular Filtration Rate > 60 mL/min (>60) Glucose Level 88 MG/DL (74-106) Calcium Level 8.6 MG/DL (8.5-10.1) Total Bilirubin 0.6 MG/DL (0.2-1.0) Aspartate Amino Transf (AST/SGOT) 62 U/L (15-37) H Alanine Aminotransferase (ALT/SGPT) 73 U/L (12-78) Alkaline Phosphatase 91 U/L (46-116) Troponin I 0.088 ng/mL (0.000-0.056) Total Protein 6.4 G/DL (6.4-8.2) Albumin 2.3 G/DL (3.4-5.0) L Globulin 4.1 g/dL Albumin/Globulin Ratio 0.6 (1.0-2.7) L Mohamud Powell MD Jun 26, 2019 11:49
--- NOTE | 2019-06-26 14:15 | General Progress Note ---
Assessment/Plan Status Narrative # Swelling v Cellulitis R LE--may be fluid overload --> as per pulm and cards diuresis --> LE Dupplex negative for DVT # H/o Hypertension --> sbp goal <140 # Thrombocytopenia - potential causes multifactorial, evaluate liver and viral etiologies to begin, also could be related to underlying medications patient has received. --> Hep panel and HIV ordered --> US abd to evaluate for cirrhosis and hsm ordered --> Peripheral smear ordered to evaluate for blasts /schistocytes --> abx and other meds have been reviewed --> ok for ppx if plt >50k w/ either heparin or lovenox # Anemia of chronic disease due to underlying chronic medical issues, multifactorial v Gi bleed --> Anemia workup has been ordered, rule out gi bleed --> No evidence of hemolysis is noted, peripheral smear has been reviewed. --> Hgb goal >7. Transfuse prn. --> Epogen or iron at this time is not particularly indicated --> Medications have been reviewed DW Rn and consultants Subjective HEENT: Denies: no symptoms, eye pain, blurred vision, tearing, double vision, ear pain, ear discharge, nose pain, nose congestion, throat pain, throat swelling, mouth pain, mouth swelling, other Cardiovascular: Denies: no symptoms, chest pain, edema, irregular heart rate, lightheadedness, palpitations, syncope, other Respiratory: Denies: no symptoms, cough, orthopnea, shortness of breath, SOB with excertion, SOB at rest, sputum, stridor, wheezing, other Gastrointestinal/Abdominal: Denies: no symptoms, abdomen distended, abdominal pain, black stools, tarry stools, blood in stool, constipated, diarrhea, difficulty swallowing, nausea, poor appetite, poor fluid intake, rectal bleeding , vomiting, other Genitourinary: Denies: no symptoms, burning, discharge, frequency, flank pain, hematuria, incontinence, pain, urgency, other Neurologic/Psychiatric: Denies: no symptoms, anxiety, depressed, emotional problems, headache, numbness, paresthesia, pre-existing deficit, seizure, tingling, tremors, weakness, other Endocrine: Denies: no symptoms, excessive sweating, flushing, intolerance to cold, intolerance to heat, increased hunger, increased thirst, increased urine, unexplained weight gain, unexplained weight loss, other Allergies: Coded Allergies: No Known Allergies (Unverified , 08/01/18) Subjective 06/26: no events, no bleeding, diuresis per cards and pulm Objective Last 24 Hour Vital Signs Date Time Temp Pulse Resp B/P (MAP) Pulse Ox O2 Delivery O2 Flow Rate FiO2 06/26/19 12:23 94 142/81 06/26/19 12:00 93 06/26/19 11:49 97.7 93 21 142/81 (101) 97 94 06/26/19 09:50 94 141/80 06/26/19 09:00 Room Air 06/26/19 08:00 94 06/26/19 08:00 97.8 94 20 141/80 (100) 97 94 06/26/19 04:00 96 06/26/19 04:00 98.6 100 18 130/82 (98) 96 91 06/26/19 00:00 96 06/26/19 00:00 98.6 100 20 131/73 (92) 96 89 06/25/19 21:00 Room Air 06/25/19 20:00 97.7 97 20 134/70 (91) 94 89 06/25/19 20:00 103 06/25/19 16:00 96 06/25/19 16:00 96.7 89 19 141/80 (100) 100 89 06/25/19 14:30 Room Air Intake and Output 06/25/19 06/26/19 19:00 07:00 Intake Total 340 ml Balance 340 ml Intake Oral 340 ml # Voids 2 Laboratory Tests 06/26/19 07:00: White Blood Count 8.9, Red Blood Count 4.22L, Hemoglobin 12.2L, Hematocrit 37.3L , Mean Corpuscular Volume 88, Mean Corpuscular Hemoglobin 28.8, Mean Corpuscular Hemoglobin Concent 32.6, Red Cell Distribution Width 14.2, Platelet Count 145L, Mean Platelet Volume 7.7, Neutrophils (%) (Auto) 65.6, Lymphocytes ( %) (Auto) 16.0L, Monocytes (%) (Auto) 10.9H, Eosinophils (%) (Auto) 4.7H, Basophils (%) (Auto) 2.9H, Sodium Level 142, Potassium Level 4.5, Chloride Level 106, Carbon Dioxide Level 22, Anion Gap 14, Blood Urea Nitrogen 12, Creatinine 0.8, Estimat Glomerular Filtration Rate > 60, Glucose Level 88, Calcium Level 8.6, Total Bilirubin 0.6, Aspartate Amino Transf (AST/SGOT) 62H, Alanine Aminotransferase (ALT/SGPT) 73, Alkaline Phosphatase 91, Troponin I 0.088H, Total Protein 6.4, Albumin 2.3L, Globulin 4.1, Albumin/Globulin Ratio 0.6L 06/26/19 12:30: Troponin I 0.000 Height (Feet): 6 Height (Inches): 2.00 Weight (Pounds): 128 Objective PHYSICAL EXAMINATION: VITAL SIGNS: Reviewed HEENT: PERRLA. NECK: Supple. No lymphadenopathy. CHEST: Clear to auscultation. CARDIOVASCULAR: Regular rate and rhythm. No murmurs or extra sounds. GASTROINTESTINAL: Soft, distended. Positive bowel sounds. EXTREMITIES: The patient is edematous all over including scrotal edema. The patient's feet are horrible in terms of hygiene. The toenails have not been clipped either. Dorsalis pedalis pulses are present. Alessandro Beach MD Jun 26, 2019 14:15
[2019-06-26 16:00] VITALS: BP 143/77
--- NOTE | 2019-06-26 18:15 | Consultation ---
DATE OF CONSULTATION: 06/26/2019 CARDIOLOGY CONSULTATION CONSULTING PHYSICIAN: Mohamud Powell M.D. REFERRING PHYSICIAN: Wade San M.D. REASON FOR CONSULTATION: Severe lower extremity edema, possible congestive heart failure, and hypertension. HISTORY OF PRESENT ILLNESS: The patient is a 54-year-old gentleman with history of hypertension, presented to the emergency room with severe bilateral lower extremity edema that has gotten worse in the last few days. The patient is homeless. The patient's blood pressure in the ER was 156/91 with heart rate of 106. With minimal exertion, the patient's heart rate was increasing as well. Cardiology consultation was obtained for further evaluation. REVIEW OF SYSTEMS: Negative other than what was mentioned in history of present illness. PAST MEDICAL HISTORY: 1. Hypertension. 2. Congestive heart failure. FAMILY HISTORY: Noncontributory. SOCIAL HISTORY: He is homeless. Denies using any drugs. PHYSICAL EXAMINATION: VITAL SIGNS: Show blood pressure of 141/80, pulse is 90, respirations 18, temperature 97.8. HEAD AND NECK: Shows no JVD. LUNGS: Clear. CARDIOVASCULAR: Shows regular S1 and S2 with no gallop. ABDOMEN: Morbidly obese. EXTREMITIES: 3+ pitting edema. LABORATORY AND DIAGNOSTIC DATA: His labs show white count of 8.9, hemoglobin 12.2, hematocrit 37.3, platelet count 145. Sodium 142, potassium 4.5, BUN of 12, creatinine 0.8. His first troponin was negative. Second troponin is elevated at 0.088. ASSESSMENT AND PLAN: 1. Troponin elevation. Initial troponin was negative. The patient however does not have renal failure. We will completely rule out GA protocol. We will get echocardiogram. His EKG is essentially normal with sinus tach at rate of 102. In the meantime, add aspirin and beta-rob to his medical regimen. 2. Bilateral lower extremity edema. Lower extremity DVT is negative for DVT. Echocardiogram is pending. On Lasix 40 mg b.i.d. In view of lower extremity edema, discontinue amlodipine and put him on metoprolol elevated troponin. 3. Morbid obesity. 4. Homelessness. Thank you very much for allowing me to participate in the care of this patient. Please do not hesitate to contact me for any questions regarding my evaluation. Mohamud Powell M.D. DR: GIL JOB#: [id number] CC:
[2019-06-26 18:42] LABS: APPEARANCE,URINE CLEAR; BILIRUBIN, URINE NEGATIVE (NEGATIVE); GLUCOSE, URINE (UA) NEGATIVE (NEGATIVE); KETONES,URINE NEGATIVE (NEGATIVE); LEUKOCYTE ESTERASE ,URINE NEGATIVE (NEGATIVE); NITRITE,URINE NEGATIVE (NEGATIVE); PH,URINE 8 (4.5-8.0); PROTEIN,URINE NEGATIVE (NEGATIVE); UROBILINOGEN,URINE 4 MG/DL (0.0-1.0)
[2019-06-26 18:46] LABS: COLOR,URINE YELLOW
--- NOTE | 2019-06-26 19:22 | NUR ---
CASE MANAGEMENT: REVIEW 54 YEAR OLD MALE PRESENTED TO ED FROM HOME CC: BILATERAL LOWER EXTREMITY SWELLING . SCROTAL SWELLING X2 WEEKS SI: SOB . CHEST PAIN . EDEMA . POSSIBLE CHF EXACERBATION T 98.2 HR 106 RR 22 BP 156/91 SAT 97% ROOM AIR TROP 0.088 IS: LASIX 40 IV X1 NITRO BID 1 INCH TOPIC X1 ASA 325MG PO X1 2D ECHO PENDING VENOUS DUPLEX PENDING PATIENT ADMITTED TO TELEMETRY UNIT 06/25/2019 DCP: PATIENT IS FROM HOME
--- NOTE | 2019-06-26 19:30 | NUR ---
NURSE NOTES: Received patient in stable condition, awake, AOx4 responsive to stimuli, no distress, IV site on R A/C g18, bed low&locked, side rails upx2, call light within reach, will continue to monitor and reassess
--- NOTE | 2019-06-26 19:37 | NUR ---
HAND-OFF: Report given to TRACEY Fernandez. Patient's stable, plan of care endorsed.
[2019-06-26 20:00] VITALS: BP 126/55
[2019-06-26] MEDS: Atorvastatin 20mg tab ORAL SCH (21:29)
[2019-06-27] VITALS: BP 130/60
--- NOTE | 2019-06-27 03:10 | NUR ---
NURSE NOTES: Troponin 0.088 , Dr Powell informed
[2019-06-27 03:31] LABS: EOSINOPHILS % (AUTO) 4.7 % (0.0-3.0); HEMATOCRIT 34.6 % (42.0-52.0); HEMOGLOBIN 11.3 G/DL (14.2-18.0); MEAN CORPUSCULAR VOLUME 86 FL (80-99); MONOCYTES % (AUTO) 12.5 % (1.0-10.0); NEUTROPHILS % (AUTO) 60.9 % (45.0-75.0); PLATELET COUNT 229 K/UL (150-450); RED BLOOD COUNT 4.01 M/UL (4.70-6.10); RED CELL DISTRIBUTION WIDTH 13.8 % (11.6-14.8); WHITE BLOOD COUNT 10.5 K/UL (4.8-10.8)
[2019-06-27 04:00] VITALS: BP 139/66
[2019-06-27 04:08] LABS: ANION GAP 8 mmol/L (5-15); BLOOD UREA NITROGEN 15 mg/dL (7-18); CALCIUM 8.4 MG/DL (8.5-10.1); CARBON DIOXIDE 31 MMOL/L (21-32); CHLORIDE 103 MMOL/L (98-107); POTASSIUM 3.6 MMOL/L (3.5-5.1); SODIUM 142 MMOL/L (136-145)
--- NOTE | 2019-06-27 07:26 | NUR ---
HAND-OFF: Report given to Urmila WEBB, patient in stable condition, plan of care endorsed
--- NOTE | 2019-06-27 07:30 | NUR ---
NURSE NOTES: Nurse report given by TRACEY Ackerman. Patient's sleeping in bed but easily awaken, eyes open spontaneously, AO x 4, denies pain, denies chest pain, denies SOB, no s/s of distress or SOB. Bed low and locked, call light within reach, side rails x2, monitoring engineer is on. IV is saline locked, patent and asymptomatic. Legs are hard and swollen, non-pitting, dry, no open sore. Offer patient to have a shower but patient refused at this time. Will continue to monitor.
[2019-06-27 08:00] VITALS: BP 138/72
[2019-06-27] MEDS: Aspirin EC 81mg tab ORAL SCH (08:41)
--- NOTE | 2019-06-27 10:41 | General Progress Note ---
Assessment/Plan Status: stable Assessment/Plan: IM PROGRESS NOTE COVERING FOR DR. MENDEZ ASSESSMENT AND RECS # Swelling v Cellulitis R LE--may be fluid overload --> as per pulm and cards diuresis --> LE Dupplex negative for DVT # H/o Hypertension --> sbp goal <140 # Thrombocytopenia - potential causes multifactorial, evaluate liver and viral etiologies to begin, also could be related to underlying medications patient has received. --> Hep panel and HIV ordered --> US abd to evaluate for cirrhosis and hsm ordered --> Peripheral smear ordered to evaluate for blasts /schistocytes --> abx and other meds have been reviewed --> ok for ppx if plt >50k w/ either heparin or lovenox --> plt trend: 229k # Anemia of chronic disease due to underlying chronic medical issues, multifactorial v Gi bleed --> Anemia workup has been ordered, rule out gi bleed --> No evidence of hemolysis is noted, peripheral smear has been reviewed. --> Hgb goal >7. Transfuse prn. --> Epogen or iron at this time is not particularly indicated --> Medications have been reviewed --> hgb trend: 11.3 DW Rn and consultants Subjective Allergies: Coded Allergies: No Known Allergies (Unverified , 08/01/18) Subjective 06/26: no events, no bleeding, diuresis per cards and pulm 06/27: alert, no overnight events, venous duplex negative, on room air Objective Last 24 Hour Vital Signs Date Time Temp Pulse Resp B/P (MAP) Pulse Ox O2 Delivery O2 Flow Rate FiO2 06/27/19 09:00 Room Air 06/27/19 08:41 88 138/72 06/27/19 08:00 98.7 88 18 138/72 (94) 94 88 06/27/19 08:00 91 06/27/19 04:00 86 06/27/19 04:00 99.2 88 18 139/66 (90) 95 94 06/27/19 00:00 99.2 90 18 130/60 (83) 94 94 06/27/19 00:00 95 06/26/19 21:30 99 126/45 06/26/19 21:00 Room Air 06/26/19 20:00 100 06/26/19 20:00 99.2 99 22 126/55 (78) 96 94 06/26/19 16:00 98.1 92 22 143/77 (99) 96 96 06/26/19 16:00 92 06/26/19 12:23 94 142/81 06/26/19 12:00 93 06/26/19 11:49 97.7 93 21 142/81 (101) 97 94 Intake and Output 06/26/19 06/27/19 19:00 07:00 Intake Total 750 ml Output Total 900 ml Balance -150 ml Intake Oral 750 ml Output Urine Total 900 ml # Voids 1 Laboratory Tests 06/26/19 12:30: Troponin I 0.000 06/26/19 17:00: Urine Color Yellow, Urine Appearance Clear, Urine pH 8, Urine Specific [place] 1.010, Urine Protein Negative, Urine Glucose (UA) Negative, Urine Ketones Negative, Urine Blood 1+H, Urine Nitrite Negative, Urine Bilirubin Negative, Urine Urobilinogen 4H, Urine Leukocyte Esterase Negative, Urine RBC 2-4H, Urine WBC 0-2, Urine Squamous Epithelial Cells None, Urine Bacteria Occasional, Urine Opiates Screen Negative, Urine Barbiturates Screen Negative, Phencyclidine (PCP ) Screen Negative, Urine Amphetamines Screen Negative, Urine Benzodiazepines Screen Negative, Urine Cocaine Screen Negative, Urine Marijuana (THC) Screen Negative 06/26/19 19:05: Troponin I 0.000 06/27/19 03:13: Troponin I 0.088H, White Blood Count 10.5, Red Blood Count 4.01L, Hemoglobin 11.3L, Hematocrit 34.6L, Mean Corpuscular Volume 86, Mean Corpuscular Hemoglobin 28.3, Mean Corpuscular Hemoglobin Concent 32.8, Red Cell Distribution Width 13.8, Platelet Count 229#, Mean Platelet Volume 6.8, Neutrophils (%) (Auto) 60.9, Lymphocytes (%) (Auto) 20.0, Monocytes (%) (Auto) 12.5H, Eosinophils (%) (Auto) 4.7H, Basophils (%) (Auto) 2.0, Sodium Level 142, Potassium Level 3.6, Chloride Level 103, Carbon Dioxide Level 31, Anion Gap 8, Blood Urea Nitrogen 15, Creatinine 1.0, Estimat Glomerular Filtration Rate > 60 , Glucose Level 100, Calcium Level 8.4L, Pro-B-Type Natriuretic Peptide 290H Height (Feet): 6 Height (Inches): 2.00 Weight (Pounds): 128 Objective PHYSICAL EXAMINATION: VITAL SIGNS: Reviewed HEENT: PERRLA. NECK: Supple. No lymphadenopathy. CHEST: Clear to auscultation. CARDIOVASCULAR: Regular rate and rhythm. No murmurs or extra sounds. GASTROINTESTINAL: Soft, distended. Positive bowel sounds. EXTREMITIES: The patient is edematous all over including scrotal edema. The patient's feet are horrible in terms of hygiene. The toenails have not been clipped either. Dorsalis pedalis pulses are present. Alessandro Beach MD Jun 27, 2019 10:41
--- NOTE | 2019-06-27 11:54 | NUR ---
CASE MANAGEMENT: REVIEW 06/27/19 SI: SOB . CHEST PAIN . EDEMA . POSSIBLE CHF EXACERBATION 98.7 88 18 138/72 94% ROOM AIR TROP (3RD)(+) 0.088 CA+ 8.4 BNP 290 IS:IV LASIX BID ASPIRIN PO QD LIPITOR PO QD LOPRESSOR PO BID \:2E TELEMETRY UNIT DCP: PATIENT IS HOMELESS Addendum: 06/27/19 at 1205 by LULY ALLISON LVN CASE MANAGEMENT: REVIEW 06/27/19 SI: . PULMONARY EDEMA . CHF EXACERBATION 98.7 88 18 138/72 94% ROOM AIR TROP (3RD)(+) 0.088 CA+ 8.4 BNP 290 IS:IV LASIX BID ASPIRIN PO QD LIPITOR PO QD LOPRESSOR PO BID \:2E TELEMETRY UNIT DCP: PATIENT IS HOMELESS
[2019-06-27 12:00] VITALS: BP 148/82
[2019-06-27 16:00] VITALS: BP 135/67
--- NOTE | 2019-06-27 17:11 | Cardiac Electrophysiology PN ---
Assessment/Plan Assessment/Plan 1. Troponin elevation. 3/5 troponins were negative.The other 2 are identical low at 0.08 No CP. Echocardiogram EF 55%. His EKG is essentially normal with sinus tach at rate of 102. Continue aspirin and beta-rob 2. Bilateral lower extremity edema. Lower extremity DVT is negative for DVT. Echocardiogram Nl EF. On Lasix 40 mg b.i.d. 3. HTN on Lopressor and Lasix 4. Morbid obesity. 5. Homelessness. Subjective Subjective No CP or SOB. In SR Objective Last 24 Hour Vital Signs Date Time Temp Pulse Resp B/P (MAP) Pulse Ox O2 Delivery O2 Flow Rate FiO2 06/27/19 12:00 99.2 82 18 148/82 (104) 95 06/27/19 12:00 80 06/27/19 09:00 Room Air 06/27/19 08:41 88 138/72 06/27/19 08:00 98.7 88 18 138/72 (94) 94 88 06/27/19 08:00 91 06/27/19 04:00 86 06/27/19 04:00 99.2 88 18 139/66 (90) 95 94 06/27/19 00:00 99.2 90 18 130/60 (83) 94 94 06/27/19 00:00 95 06/26/19 21:30 99 126/45 06/26/19 21:00 Room Air 06/26/19 20:00 100 06/26/19 20:00 99.2 99 22 126/55 (78) 96 94 Intake and Output 06/26/19 06/27/19 19:00 07:00 Intake Total 750 ml Output Total 900 ml Balance -150 ml Intake Oral 750 ml Output Urine Total 900 ml # Voids 1 Laboratory Tests Test 06/26/19 19:05 06/27/19 03:13 Troponin I 0.000 ng/mL (0.000-0.056) 0.088 ng/mL (0.000-0.056) White Blood Count 10.5 K/UL (4.8-10.8) Red Blood Count 4.01 M/UL (4.70-6.10) L Hemoglobin 11.3 G/DL (14.2-18.0) L Hematocrit 34.6 % (42.0-52.0) L Mean Corpuscular Volume 86 FL (80-99) Mean Corpuscular Hemoglobin 28.3 PG (27.0-31.0) Mean Corpuscular Hemoglobin Concent 32.8 G/DL (32.0-36.0) Red Cell Distribution Width 13.8 % (11.6-14.8) Platelet Count 229 K/UL (150-450) # Mean Platelet Volume 6.8 FL (6.5-10.1) Neutrophils (%) (Auto) 60.9 % (45.0-75.0) Lymphocytes (%) (Auto) 20.0 % (20.0-45.0) Monocytes (%) (Auto) 12.5 % (1.0-10.0) H Eosinophils (%) (Auto) 4.7 % (0.0-3.0) H Basophils (%) (Auto) 2.0 % (0.0-2.0) Sodium Level 142 MMOL/L (136-145) Potassium Level 3.6 MMOL/L (3.5-5.1) Chloride Level 103 MMOL/L (98-107) Carbon Dioxide Level 31 MMOL/L (21-32) Anion Gap 8 mmol/L (5-15) Blood Urea Nitrogen 15 mg/dL (7-18) Creatinine 1.0 MG/DL (0.55-1.30) Estimat Glomerular Filtration Rate > 60 mL/min (>60) Glucose Level 100 MG/DL (74-106) Calcium Level 8.4 MG/DL (8.5-10.1) L Pro-B-Type Natriuretic Peptide 290 pg/mL (0-125) H Objective HEAD AND NECK: No JVD. LUNGS: Clear. CARDIOVASCULAR: Shows regular S1 and S2 with no gallop. ABDOMEN: Morbidly obese. EXTREMITIES: 3+ pitting edema. Mohamud Powell MD Jun 27, 2019 17:11
--- NOTE | 2019-06-27 18:28 | Pulmonology Progress Note ---
Assessment/Plan Assessment/Plan IMPRESSION: 1. Pulmonary edema. 2. Hypertension. DISCUSSION: 1. Continue present care 2. Blood pressure control. 3. Start diuresis. 4. 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 5. Checked duplex LE; no DVT Akira Chaidez M.D. Subjective Interval Events: None new Constitutional: Reports: no symptoms HEENT: Repors: no symptoms Respiratory: Reports: no symptoms Cardiovascular: Reports: no symptoms Gastrointestinal/Abdominal: Reports: no symptoms Genitourinary: Reports: no symptoms Allergies: Coded Allergies: No Known Allergies (Unverified , 08/01/18) Objective Last 24 Hour Vital Signs Date Time Temp Pulse Resp B/P (MAP) Pulse Ox O2 Delivery O2 Flow Rate FiO2 06/27/19 12:00 99.2 82 18 148/82 (104) 95 06/27/19 12:00 80 06/27/19 09:00 Room Air 06/27/19 08:41 88 138/72 06/27/19 08:00 98.7 88 18 138/72 (94) 94 88 06/27/19 08:00 91 06/27/19 04:00 86 06/27/19 04:00 99.2 88 18 139/66 (90) 95 94 06/27/19 00:00 99.2 90 18 130/60 (83) 94 94 06/27/19 00:00 95 06/26/19 21:30 99 126/45 06/26/19 21:00 Room Air 06/26/19 20:00 100 06/26/19 20:00 99.2 99 22 126/55 (78) 96 94 Intake and Output 06/26/19 06/27/19 19:00 07:00 Intake Total 750 ml Output Total 900 ml Balance -150 ml Intake Oral 750 ml Output Urine Total 900 ml # Voids 1 General Appearance: no acute distress HEENT: normocephalic Respiratory/Chest: chest wall non-tender Cardiovascular: normal peripheral pulses Abdomen: normal bowel sounds Laboratory Tests 06/26/19 19:05: Troponin I 0.000 06/27/19 03:13: Troponin I 0.088H, White Blood Count 10.5, Red Blood Count 4.01L, Hemoglobin 11.3L, Hematocrit 34.6L, Mean Corpuscular Volume 86, Mean Corpuscular Hemoglobin 28.3, Mean Corpuscular Hemoglobin Concent 32.8, Red Cell Distribution Width 13.8, Platelet Count 229#, Mean Platelet Volume 6.8, Neutrophils (%) (Auto) 60.9, Lymphocytes (%) (Auto) 20.0, Monocytes (%) (Auto) 12.5H, Eosinophils (%) (Auto) 4.7H, Basophils (%) (Auto) 2.0, Sodium Level 142, Potassium Level 3.6, Chloride Level 103, Carbon Dioxide Level 31, Anion Gap 8, Blood Urea Nitrogen 15, Creatinine 1.0, Estimat Glomerular Filtration Rate > 60 , Glucose Level 100, Calcium Level 8.4L, Pro-B-Type Natriuretic Peptide 290H Current Medications Medications (Trade) Dose Ordered Sig/Tere Route PRN Reason Start Time Stop Time Status Last Admin Dose Admin Acetaminophen (Tylenol) 500 mg Q4H PRN ORAL Mild Pain/Temp > 100.5 06/25/19 15:00 07/25/19 14:59 06/26/19 21:32 Aspirin (Ecotrin) 81 mg DAILY ORAL 06/27/19 09:00 07/27/19 08:59 06/27/19 08:41 Atorvastatin Calcium (Lipitor) 20 mg BEDTIME ORAL 06/26/19 21:00 07/26/19 20:59 06/26/19 21:29 Furosemide (Lasix) 40 mg EVERY 12 HOURS IV 06/26/19 09:00 07/26/19 08:59 06/27/19 08:41 Metoprolol Tartrate (Lopressor) 25 mg Q12HR ORAL 06/26/19 12:00 07/26/19 11:59 06/27/19 08:41 Akira Chaidez MD Jun 27, 2019 18:28
--- NOTE | 2019-06-27 19:30 | NUR ---
NURSE NOTES: Received patient from Urmila WEBB. Patient in bed, on room air, no signs of respiratory distress. Bed in low position. Locked, call light within reach.
--- NOTE | 2019-06-27 19:47 | NUR ---
HAND-OFF: Report given to TRACEY Fernandez. Patient's stable, plan of care endorsed.
[2019-06-27 20:00] VITALS: BP 131/64
[2019-06-27] MEDS: Atorvastatin 20mg tab ORAL SCH (21:01)
--- NOTE | 2019-06-27 23:30 | Consultation ---
DATE OF CONSULTATION: 06/27/2019 CONSULTING PHYSICIAN: Shawn Nassar D.P.M REFERRING PHYSICIAN: Wade San M.D. REASON FOR CONSULTATION: Bilateral leg swelling, edema. HISTORY OF PRESENT ILLNESS: This is a 54-year-old patient with history of peripheral vascular disease and edema, admitted to [facility] with pain to bilateral legs. The patient states that upon his arrival at the ER, he noticed shortness of breath and pain to bilateral legs up to his thigh and groin. PAST MEDICAL HISTORY: Peripheral vascular disease, venous stasis, cellulitis, edema, lymphedema, chest pain. PHYSICAL EXAMINATION: VASCULAR: Dorsalis pedis and posterior tibial artery are nonpalpable. Capillary refilling time cannot be assessed. Edema is noted to bilateral legs from distal to the knee. The right leg and foot noted edema distal to the ankle, dorsal aspect of the foot and digits consistent with lymphedema. NEUROLOGICAL: Sharp and dull proprioception, protected threshold noted to be diminished. MUSCULOSKELETAL: The patient's range of motion and muscle strength noted to be diminished. DERMATOLOGICAL: Attention was directed to bilateral legs where edema is noted to bilateral legs, 2/4. There is wound cleaned up on examination of the anterior and posteromedial phillips bilaterally consistent with decreasing edema. No sign of ulceration opening, drainage, or discharge is identified. ASSESSMENT AND PLAN: Diabetic patient with venous stasis, cellulitis, and edema consistent with peripheral vascular disease. Cardiovascular examination has been initiated by the pyrotechnist. Vascular surgeon is pending examination. Time was taken to explain the patient the definition of peripheral vascular disease and lymphedema. The patient understands it is recommended for him to apply compression stockings. The patient will be followed. Shawn Nassar D.P.M DR: JC JOB#: [id number] CC:
[2019-06-28 00:01] VITALS: BP 138/82
[2019-06-28 04:00] VITALS: BP 130/85
--- NOTE | 2019-06-28 07:35 | NUR ---
NURSE NOTES: Nurse report given by TRACEY Fernandez. Patient's sleeping in bed but easily awaken, eyes open spontaneously, AO x 4, denies pain, denies chest pain, denies SOB, no s/s of distress or SOB. Bed low and locked, call light within reach, side rails x2, fender finisher is on. IV is saline locked, patent and asymptomatic. Legs are hard and swollen, +3 edema, dry, no open sore. Offer patient to have a shower again but patient refused at this time. Will continue to monitor.
[2019-06-28 08:00] VITALS: BP 158/60
[2019-06-28] MEDS: Aspirin EC 81mg tab ORAL SCH (09:06)
--- NOTE | 2019-06-28 09:25 | Cardiac Electrophysiology PN ---
Assessment/Plan Assessment/Plan 1. Troponin elevation. 3/5 troponins were negative.The other 2 are identical low at 0.08 No CP. Echocardiogram EF 55%. His EKG is essentially normal with sinus tach at rate of 102. Continue aspirin and beta-rob 2. Diabetic patient with venous stasis, cellulitis, and edema consistent with peripheral vascular disease. Lower extremity DVT is negative for DVT. Echocardiogram Nl EF. On Lasix 40 mg b.i.d. Vascular surgeon is pending examination. 3. HTN on Lopressor and Lasix 4. Morbid obesity. 5. Homelessness. Subjective Subjective No CP or SOB. In SR. IEValuated by Dr Nassar. Refusing to take shower Objective Last 24 Hour Vital Signs Date Time Temp Pulse Resp B/P (MAP) Pulse Ox O2 Delivery O2 Flow Rate FiO2 06/28/19 09:06 84 130/85 06/28/19 04:00 84 06/28/19 04:00 98.0 88 22 130/85 (100) 96 06/28/19 00:01 98.4 93 20 138/82 (100) 96 06/28/19 00:00 88 06/27/19 21:01 91 131/64 06/27/19 21:00 Room Air 06/27/19 20:00 91 06/27/19 20:00 98.8 91 22 131/64 (86) 96 06/27/19 16:00 97.8 79 19 135/67 (89) 97 06/27/19 16:00 86 06/27/19 12:00 99.2 82 18 148/82 (104) 95 06/27/19 12:00 80 Intake and Output 06/27/19 06/28/19 19:00 07:00 # Voids 1 Objective HEAD AND NECK: No JVD. LUNGS: Clear. CARDIOVASCULAR: Shows regular S1 and S2 with no gallop. ABDOMEN: Morbidly obese. EXTREMITIES: 2+ pitting edema. Mohamud Powell MD Jun 28, 2019 09:25
[2019-06-28 12:00] VITALS: BP 129/76
--- NOTE | 2019-06-28 12:50 | General Progress Note ---
Assessment/Plan Status: stable Assessment/Plan: IM PROGRESS NOTE COVERING FOR DR. MENDEZ ASSESSMENT AND RECS # Swelling v Cellulitis R LE--may be fluid overload --> as per pulm and cards diuresis --> LE Dupplex negative for DVT # H/o Hypertension --> sbp goal <140 # Thrombocytopenia - potential causes multifactorial, evaluate liver and viral etiologies to begin, also could be related to underlying medications patient has received. --> Hep panel and HIV ordered --> US abd to evaluate for cirrhosis and hsm ordered --> Peripheral smear ordered to evaluate for blasts /schistocytes --> abx and other meds have been reviewed --> ok for ppx if plt >50k w/ either heparin or lovenox --> plt trend: 229k # Anemia of chronic disease due to underlying chronic medical issues, multifactorial v Gi bleed --> Anemia workup has been ordered, rule out gi bleed --> No evidence of hemolysis is noted, peripheral smear has been reviewed. --> Hgb goal >7. Transfuse prn. --> Epogen or iron at this time is not particularly indicated --> Medications have been reviewed --> hgb trend: 11.3 # Venous stasis # Morbid obesity # Homelessness DW Rn and consultants Subjective HEENT: Denies: no symptoms, eye pain, blurred vision, tearing, double vision, ear pain, ear discharge, nose pain, nose congestion, throat pain, throat swelling, mouth pain, mouth swelling, other Cardiovascular: Denies: no symptoms, chest pain, edema, irregular heart rate, lightheadedness, palpitations, syncope, other Gastrointestinal/Abdominal: Denies: no symptoms, abdomen distended, abdominal pain, black stools, tarry stools, blood in stool, constipated, diarrhea, difficulty swallowing, nausea, poor appetite, poor fluid intake, rectal bleeding , vomiting, other Genitourinary: Denies: no symptoms, burning, discharge, frequency, flank pain, hematuria, incontinence, pain, urgency, other Neurologic/Psychiatric: Denies: no symptoms, anxiety, depressed, emotional problems, headache, numbness, paresthesia, pre-existing deficit, seizure, tingling, tremors, weakness, other Endocrine: Denies: no symptoms, excessive sweating, flushing, intolerance to cold, intolerance to heat, increased hunger, increased thirst, increased urine, unexplained weight gain, unexplained weight loss, other Hematologic/Lymphatic: Denies: no symptoms, anemia, easy bleeding, easy bruising, other Allergies: Coded Allergies: No Known Allergies (Unverified , 08/01/18) Subjective 06/26: no events, no bleeding, diuresis per cards and pulm 06/27: alert, no overnight events, venous duplex negative, on room air 06/28: no events, no bleeding, labs noted, refusing shower, seen by pod Objective Last 24 Hour Vital Signs Date Time Temp Pulse Resp B/P (MAP) Pulse Ox O2 Delivery O2 Flow Rate FiO2 06/28/19 09:06 84 130/85 06/28/19 09:00 Room Air 06/28/19 08:00 97.5 89 20 158/60 (92) 95 06/28/19 08:00 87 06/28/19 04:00 84 06/28/19 04:00 98.0 88 22 130/85 (100) 96 06/28/19 00:01 98.4 93 20 138/82 (100) 96 06/28/19 00:00 88 06/27/19 21:01 91 131/64 06/27/19 21:00 Room Air 06/27/19 20:00 91 06/27/19 20:00 98.8 91 22 131/64 (86) 96 06/27/19 16:00 97.8 79 19 135/67 (89) 97 06/27/19 16:00 86 Intake and Output 06/27/19 06/28/19 19:00 07:00 # Voids 1 Height (Feet): 6 Height (Inches): 2.00 Weight (Pounds): 128 Objective PHYSICAL EXAMINATION: VITAL SIGNS: Reviewed HEENT: PERRLA. NECK: Supple. No lymphadenopathy. CHEST: Clear to auscultation. CARDIOVASCULAR: Regular rate and rhythm. No murmurs or extra sounds. GASTROINTESTINAL: Soft, distended. Positive bowel sounds. EXTREMITIES: The patient is edematous all over including scrotal edema. The patient's feet are horrible in terms of hygiene. The toenails have not been clipped either. Dorsalis pedalis pulses are present. Alessandro Beach MD Jun 28, 2019 12:49
--- NOTE | 2019-06-28 14:36 | NUR ---
CASE MANAGEMENT: REVIEW 06/28/19 SI: . PULMONARY EDEMA . CHF EXACERBATION CELLULITIS VS SWELLING RLE 97.5 89 20 158/60 95% ROOM AIR IS:IV LASIX BID ASPIRIN PO QD LIPITOR PO QD LOPRESSOR PO BID \:2E TELEMETRY UNIT DCP: PATIENT IS HOMELESS
[2019-06-28 16:00] VITALS: BP 132/74
--- NOTE | 2019-06-28 18:46 | Pulmonology Progress Note ---
Assessment/Plan Assessment/Plan IMPRESSION: 1. Pulmonary edema. 2. Hypertension. DISCUSSION: 1. Continue present care 2. Blood pressure control. 3. Start diuresis. 4. 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 5. Checked duplex LE; no DVT Akira Chaidez M.D. Subjective Interval Events: None new Constitutional: Reports: no symptoms HEENT: Repors: no symptoms Respiratory: Reports: no symptoms Cardiovascular: Reports: no symptoms Gastrointestinal/Abdominal: Reports: no symptoms Allergies: Coded Allergies: No Known Allergies (Unverified , 08/01/18) Objective Last 24 Hour Vital Signs Date Time Temp Pulse Resp B/P (MAP) Pulse Ox O2 Delivery O2 Flow Rate FiO2 06/28/19 16:00 83 06/28/19 16:00 98.1 72 20 132/74 (93) 94 06/28/19 12:00 79 06/28/19 12:00 97.9 81 17 129/76 (93) 95 06/28/19 09:06 84 130/85 06/28/19 09:00 Room Air 06/28/19 08:00 97.5 89 20 158/60 (92) 95 06/28/19 08:00 87 06/28/19 04:00 84 06/28/19 04:00 98.0 88 22 130/85 (100) 96 06/28/19 00:01 98.4 93 20 138/82 (100) 96 06/28/19 00:00 88 06/27/19 21:01 91 131/64 06/27/19 21:00 Room Air 06/27/19 20:00 91 06/27/19 20:00 98.8 91 22 131/64 (86) 96 Intake and Output 06/27/19 06/28/19 19:00 07:00 # Voids 1 General Appearance: no acute distress HEENT: normocephalic Respiratory/Chest: chest wall non-tender Cardiovascular: normal peripheral pulses Abdomen: normal bowel sounds Current Medications Medications (Trade) Dose Ordered Sig/Tere Route PRN Reason Start Time Stop Time Status Last Admin Dose Admin Acetaminophen (Tylenol) 500 mg Q4H PRN ORAL Mild Pain/Temp > 100.5 06/25/19 15:00 07/25/19 14:59 06/26/19 21:32 Aspirin (Ecotrin) 81 mg DAILY ORAL 06/27/19 09:00 07/27/19 08:59 06/28/19 09:06 Atorvastatin Calcium (Lipitor) 20 mg BEDTIME ORAL 06/26/19 21:00 07/26/19 20:59 06/27/19 21:01 Furosemide (Lasix) 40 mg EVERY 12 HOURS IV 06/26/19 09:00 07/26/19 08:59 06/28/19 09:06 Metoprolol Tartrate (Lopressor) 25 mg Q12HR ORAL 06/26/19 12:00 07/26/19 11:59 06/28/19 09:06 Akira Chaidez MD Jun 28, 2019 18:46
--- NOTE | 2019-06-28 19:44 | NUR ---
HAND-OFF: Report given to TRACEY Wren. Plan of care endorsed. [employer]. .
--- NOTE | 2019-06-28 19:46 | NUR ---
NURSE NOTES: Nurse report given by Urmila WEBB. AO x 4, denies pain, denies chest pain, denies SOB, no s/s of distress or SOB. Bed low and locked, call light within reach, side rails x2, metal bonding worker is on. IV is saline locked, patent and asymptomatic. Legs are hard and swollen, +2 edema to feet, ankles, extremely dry and scaly. Will continue to monitor.
[2019-06-28 20:00] VITALS: BP 139/83
[2019-06-28] MEDS: Atorvastatin 20mg tab ORAL SCH (21:18)
[2019-06-29] VITALS: BP 141/80
--- NOTE | 2019-06-29 03:00 | NUR ---
OBTAINED REPORT FROM JAZMINE WEBB. PT RESTING IN BED NO APPARENT DISTRESS.
--- NOTE | 2019-06-29 03:07 | NUR ---
HAND-OFF: Report given to TRACEY George.
[2019-06-29 04:00] VITALS: BP 136/73
--- NOTE | 2019-06-29 07:30 | NUR ---
NURSE NOTES: Handoff received from TRACEY George. Patient received awake and alert and able to make needs known, no acute signs of distress noted. Patient has IV site clean dry and intact, saline locked. Bed in the low and locked position with call light within reach, will continue to monitor patient.
--- NOTE | 2019-06-29 07:30 | NUR ---
GAVE FULL REPORT TO NORI WEBB. PT RESTING IN BED NO APPARENT DISTRESS.
[2019-06-29 08:00] VITALS: BP 129/64
[2019-06-29] MEDS: Aspirin EC 81mg tab ORAL SCH (10:03)
[2019-06-29 12:00] VITALS: BP 136/78
--- NOTE | 2019-06-29 12:36 | Pulmonology Progress Note ---
Assessment/Plan Assessment/Plan IMPRESSION: 1. Pulmonary edema. 2. Hypertension. DISCUSSION: 1. Continue present care 2. Blood pressure control. 3. Continue diuresis. 4. 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 5. Checked duplex LE; no DVT Akira Chaidez M.D. Subjective Interval Events: None new Constitutional: Reports: no symptoms HEENT: Repors: no symptoms Respiratory: Reports: no symptoms Cardiovascular: Reports: no symptoms Gastrointestinal/Abdominal: Reports: no symptoms Allergies: Coded Allergies: No Known Allergies (Unverified , 08/01/18) Objective Last 24 Hour Vital Signs Date Time Temp Pulse Resp B/P (MAP) Pulse Ox O2 Delivery O2 Flow Rate FiO2 06/29/19 10:03 85 129/64 06/29/19 09:00 Room Air 06/29/19 08:00 82 06/29/19 08:00 97.9 85 20 129/64 (85) 93 06/29/19 04:00 79 06/29/19 04:00 98.0 80 20 136/73 (94) 94 06/29/19 00:00 84 06/29/19 00:00 98.1 84 18 141/80 (100) 94 06/28/19 21:18 86 139/83 06/28/19 21:00 Room Air 06/28/19 20:00 98.2 86 18 139/83 (101) 95 06/28/19 20:00 85 06/28/19 16:00 83 06/28/19 16:00 98.1 72 20 132/74 (93) 94 Intake and Output 06/28/19 06/29/19 19:00 07:00 Intake Total 750 ml Output Total 1000 ml Balance 750 ml -1000 ml Intake Oral 750 ml Output Urine Total 1000 ml # Voids 3 General Appearance: no acute distress HEENT: normocephalic Respiratory/Chest: chest wall non-tender Cardiovascular: normal peripheral pulses Abdomen: normal bowel sounds Current Medications Medications (Trade) Dose Ordered Sig/Tere Route PRN Reason Start Time Stop Time Status Last Admin Dose Admin Acetaminophen (Tylenol) 500 mg Q4H PRN ORAL Mild Pain/Temp > 100.5 06/25/19 15:00 07/25/19 14:59 06/26/19 21:32 Aspirin (Ecotrin) 81 mg DAILY ORAL 06/27/19 09:00 07/27/19 08:59 06/29/19 10:03 Atorvastatin Calcium (Lipitor) 20 mg BEDTIME ORAL 06/26/19 21:00 07/26/19 20:59 06/28/19 21:18 Furosemide (Lasix) 40 mg EVERY 12 HOURS IV 06/26/19 09:00 07/26/19 08:59 06/29/19 10:04 Metoprolol Tartrate (Lopressor) 25 mg Q12HR ORAL 06/26/19 12:00 07/26/19 11:59 06/29/19 10:03 Akira Chaidez MD Jun 29, 2019 12:36
--- NOTE | 2019-06-29 12:59 | Cardiac Electrophysiology PN ---
Assessment/Plan Assessment/Plan 1. Troponin elevation. 3/5 troponins were negative.The other 2 are identical low at 0.08 No CP. Echocardiogram EF 55%. His EKG is essentially normal with sinus tach at rate of 102. Continue aspirin and beta-rob 2. Diabetic patient with venous stasis, cellulitis, and edema consistent with peripheral vascular disease. Lower extremity DVT is negative for DVT. Echocardiogram Nl EF. On Lasix 40 mg b.i.d. Vascular surgeon FU 3. HTN on Lopressor and Lasix 4. Morbid obesity. 5. Homelessness. Subjective Subjective No CP or SOB. In SR. Refusing to take shower Objective Last 24 Hour Vital Signs Date Time Temp Pulse Resp B/P (MAP) Pulse Ox O2 Delivery O2 Flow Rate FiO2 06/29/19 12:00 98.2 76 18 136/78 (97) 96 06/29/19 10:03 85 129/64 06/29/19 09:00 Room Air 06/29/19 08:00 82 06/29/19 08:00 97.9 85 20 129/64 (85) 93 06/29/19 04:00 79 06/29/19 04:00 98.0 80 20 136/73 (94) 94 06/29/19 00:00 84 06/29/19 00:00 98.1 84 18 141/80 (100) 94 06/28/19 21:18 86 139/83 06/28/19 21:00 Room Air 06/28/19 20:00 98.2 86 18 139/83 (101) 95 06/28/19 20:00 85 06/28/19 16:00 83 06/28/19 16:00 98.1 72 20 132/74 (93) 94 Intake and Output 06/28/19 06/29/19 19:00 07:00 Intake Total 750 ml Output Total 1000 ml Balance 750 ml -1000 ml Intake Oral 750 ml Output Urine Total 1000 ml # Voids 3 Objective HEAD AND NECK: No JVD. LUNGS: Clear. CARDIOVASCULAR: Shows regular S1 and S2 with no gallop. ABDOMEN: Morbidly obese. EXTREMITIES: 2+ pitting edema R>L. Mohamud Powell MD Jun 29, 2019 12:59
[2019-06-29 16:00] VITALS: BP 146/83
--- NOTE | 2019-06-29 19:12 | NUR ---
HAND-OFF: Report given to TRACEY Mcguire.
--- NOTE | 2019-06-29 19:20 | NUR ---
NURSE NOTES: Nurse report given by Db WEBB. AO x 4, on RA, denies pain, denies chest pain, denies SOB, no s/s of distress or SOB. Bed low and locked, call light within reach, side rails x2, groundwater monitoring technician is on. IV is saline locked, patent and asymptomatic. Legs are hard, extremely dry and scaly and swollen, trace to +1 edema to feet, ankles. Will continue to monitor.
[2019-06-29 20:00] VITALS: BP 131/74
[2019-06-29] MEDS: Atorvastatin 20mg tab ORAL SCH (21:06)
[2019-06-30] VITALS (7 sets, daily range): BP systolic 125–138; BP diastolic 62–96
--- NOTE | 2019-06-30 07:15 | NUR ---
HAND-OFF: Report given to Genaro RN
--- NOTE | 2019-06-30 07:35 | NUR ---
NURSE NOTES: Received report from TRACEY Wren. Patient in bed resting, no active s/s cardiac, respiratory distress noticed at this time. Encouraged for shower, but patient refused. IV on right hand 22G, asymptomatic, patent, intact, on room air, SR with HR 84. Bed in lowest position, side rails upx2, call light within reach. Will continue to monitor.
--- NOTE | 2019-06-30 08:14 | General Progress Note ---
Assessment/Plan Status: stable Assessment/Plan: IM PROGRESS NOTE COVERING FOR DR. MENDEZ ASSESSMENT AND RECS # Swelling v Cellulitis R LE--may be fluid overload --> as per pulm and cards diuresis --> LE Dupplex negative for DVT # H/o Hypertension --> sbp goal <140 # Thrombocytopenia - potential causes multifactorial, evaluate liver and viral etiologies to begin, also could be related to underlying medications patient has received. --> Hep panel and HIV ordered --> US abd to evaluate for cirrhosis and hsm ordered --> Peripheral smear ordered to evaluate for blasts /schistocytes --> abx and other meds have been reviewed --> ok for ppx if plt >50k w/ either heparin or lovenox --> plt trend: 229k # Anemia of chronic disease due to underlying chronic medical issues, multifactorial v Gi bleed --> Anemia workup has been ordered, rule out gi bleed --> No evidence of hemolysis is noted, peripheral smear has been reviewed. --> Hgb goal >7. Transfuse prn. --> Epogen or iron at this time is not particularly indicated --> Medications have been reviewed --> hgb trend: 11.3 # Venous stasis # Morbid obesity # Homelessness DW Rn and consultants Subjective HEENT: Denies: no symptoms, eye pain, blurred vision, tearing, double vision, ear pain, ear discharge, nose pain, nose congestion, throat pain, throat swelling, mouth pain, mouth swelling, other Cardiovascular: Denies: no symptoms, chest pain, edema, irregular heart rate, lightheadedness, palpitations, syncope, other Gastrointestinal/Abdominal: Denies: no symptoms, abdomen distended, abdominal pain, black stools, tarry stools, blood in stool, constipated, diarrhea, difficulty swallowing, nausea, poor appetite, poor fluid intake, rectal bleeding , vomiting, other Neurologic/Psychiatric: Denies: no symptoms, anxiety, depressed, emotional problems, headache, numbness, paresthesia, pre-existing deficit, seizure, tingling, tremors, weakness, other Endocrine: Denies: no symptoms, excessive sweating, flushing, intolerance to cold, intolerance to heat, increased hunger, increased thirst, increased urine, unexplained weight gain, unexplained weight loss, other Hematologic/Lymphatic: Denies: no symptoms, anemia, easy bleeding, easy bruising, other Allergies: Coded Allergies: No Known Allergies (Unverified , 08/01/18) Subjective 06/26: no events, no bleeding, diuresis per cards and pulm 06/27: alert, no overnight events, venous duplex negative, on room air 06/28: no events, no bleeding, labs noted, refusing shower, seen by pod 06/30: no major changes, legs appear better, no complaints, on 2lnc Objective Last 24 Hour Vital Signs Date Time Temp Pulse Resp B/P (MAP) Pulse Ox O2 Delivery O2 Flow Rate FiO2 06/30/19 04:15 98.9 84 18 128/77 (94) 94 06/30/19 04:00 81 06/30/19 00:00 98.1 83 16 138/84 (102) 95 06/30/19 00:00 83 06/29/19 21:06 86 131/74 06/29/19 21:01 Room Air 06/29/19 21:00 Room Air 06/29/19 20:00 99.1 86 18 131/74 (93) 98 06/29/19 20:00 83 06/29/19 16:00 79 06/29/19 16:00 98.1 80 20 146/83 (104) 95 06/29/19 12:00 98.2 76 18 136/78 (97) 96 06/29/19 12:00 72 06/29/19 10:03 85 129/64 06/29/19 09:00 Room Air Intake and Output 06/29/19 06/30/19 19:00 07:00 Intake Total 300 ml 400 ml Balance 300 ml 400 ml Intake Oral 300 ml Other 400 ml # Voids 2 3 Height (Feet): 6 Height (Inches): 2.00 Weight (Pounds): 128 Objective PHYSICAL EXAMINATION: VITAL SIGNS: Reviewed HEENT: PERRLA. NECK: Supple. No lymphadenopathy. CHEST: Clear to auscultation. CARDIOVASCULAR: Regular rate and rhythm. No murmurs or extra sounds. GASTROINTESTINAL: Soft, distended. Positive bowel sounds. EXTREMITIES: The patient is edematous all over including scrotal edema. The patient's feet are horrible in terms of hygiene. The toenails have not been clipped either. Improved since admission Alessandro Beach MD Jun 30, 2019 08:14
[2019-06-30] MEDS: Aspirin EC 81mg tab ORAL SCH (08:59)
--- NOTE | 2019-06-30 15:46 | Pulmonology Progress Note ---
Assessment/Plan Assessment/Plan IMPRESSION: 1. Pulmonary edema. 2. Hypertension. DISCUSSION: 1. Continue present care 2. Blood pressure control. 3. Continue diuresis. 4. I will follow as executive candidate developer; will order oxygen and pulmonary hygiene. 5. Checked duplex LE; no DVT Akira Chaidez M.D. Subjective Interval Events: None new Constitutional: Reports: no symptoms HEENT: Repors: no symptoms Respiratory: Reports: no symptoms Cardiovascular: Reports: no symptoms Gastrointestinal/Abdominal: Reports: no symptoms Allergies: Coded Allergies: No Known Allergies (Unverified , 08/01/18) Objective Last 24 Hour Vital Signs Date Time Temp Pulse Resp B/P (MAP) Pulse Ox O2 Delivery O2 Flow Rate FiO2 06/30/19 12:00 72 06/30/19 12:00 98.2 73 18 130/96 (107) 98 06/30/19 09:00 Room Air 06/30/19 08:59 82 130/80 06/30/19 08:00 97.8 82 18 130/80 (97) 99 06/30/19 08:00 78 06/30/19 04:15 98.9 84 18 128/77 (94) 94 06/30/19 04:00 81 06/30/19 00:00 98.1 83 16 138/84 (102) 95 06/30/19 00:00 83 06/29/19 21:06 86 131/74 06/29/19 21:01 Room Air 06/29/19 21:00 Room Air 06/29/19 20:00 99.1 86 18 131/74 (93) 98 06/29/19 20:00 83 06/29/19 16:00 79 06/29/19 16:00 98.1 80 20 146/83 (104) 95 Intake and Output 06/29/19 06/30/19 19:00 07:00 Intake Total 300 ml 400 ml Balance 300 ml 400 ml Intake Oral 300 ml Other 400 ml # Voids 2 3 General Appearance: no acute distress HEENT: normocephalic Respiratory/Chest: chest wall non-tender Cardiovascular: normal peripheral pulses Abdomen: normal bowel sounds Current Medications Medications (Trade) Dose Ordered Sig/Tere Route PRN Reason Start Time Stop Time Status Last Admin Dose Admin Acetaminophen (Tylenol) 500 mg Q4H PRN ORAL Mild Pain/Temp > 100.5 06/25/19 15:00 07/25/19 14:59 06/26/19 21:32 Aspirin (Ecotrin) 81 mg DAILY ORAL 06/27/19 09:00 07/27/19 08:59 06/30/19 08:59 Atorvastatin Calcium (Lipitor) 20 mg BEDTIME ORAL 06/26/19 21:00 07/26/19 20:59 06/29/19 21:06 Furosemide (Lasix) 40 mg EVERY 12 HOURS IV 06/26/19 09:00 07/26/19 08:59 06/30/19 08:59 Metoprolol Tartrate (Lopressor) 25 mg Q12HR ORAL 06/26/19 12:00 07/26/19 11:59 06/30/19 08:59 Akira Chaidez MD Jun 30, 2019 15:46
--- NOTE | 2019-06-30 18:18 | NUR ---
TRANSFER TO FLOOR: Patient transferred to 4E, per Dr. Youngblood. Report given to TRACEY Ace. Belongings and medications given to TRACEY Ace. Family and or S/O informed of transfer.
--- NOTE | 2019-06-30 18:20 | NUR ---
NURSE NOTES:Handoff received from TRACEY Moody. Patient transferred from Tele. Patient is alert and oriented to person, time place and purpose, On room air, vitals taken on arrival and are within normal range. Bed in the low and locked position with call light at reach, patient oriented to room and call light. Patient is on room air with no acute signs of distress noted. Patient IV is right hand 22g saline locked. Patient able to make needs known, no acute signs of distress noted, no complaints of pain at this time, will continue to monitor patient.
[2019-06-30] MEDS ORDERED: Acetaminophen 500mg (ES) tab ORAL PRN (18:34)
--- NOTE | 2019-06-30 19:12 | NUR ---
HAND-OFF: Report given to TRACEY Byrd.
--- NOTE | 2019-06-30 19:25 | NUR ---
NURSE NOTES: Received patient awake, alert, resting in bed, comfortable.
[2019-06-30] MEDS: Atorvastatin 20mg tab ORAL SCH (20:51)
[2019-07-01 00:11] VITALS: BP 128/82
[2019-07-01 04:14] VITALS: BP 130/82
--- NOTE | 2019-07-01 07:09 | NUR ---
HAND-OFF: Report given to Edward Kaiser RN.
--- NOTE | 2019-07-01 07:22 | NUR ---
NURSE NOTES: Received report from Rochelle Fernandes, patient sleeping on right side, respirations at 15 breaths per minute, on room air, bed in lowest position, call light within reach, belongings on tray next to bed, in no apparent distress.
[2019-07-01 08:00] VITALS: BP 125/74
[2019-07-01] MEDS: Aspirin EC 81mg tab ORAL SCH (09:27)
--- NOTE | 2019-07-01 09:32 | Hematology/Onc Progress Note ---
Assessment/Plan Assessment/Plan ASSESSMENT AND RECS # Thrombocytopenia - potential causes multifactorial, evaluate liver and viral etiologies to begin, also could be related to underlying medications patient has received. --> Hep panel and HIV ordered --> US abd to evaluate for cirrhosis and hsm ordered --> Peripheral smear ordered to evaluate for blasts /schistocytes --> abx and other meds have been reviewed --> ok for ppx if plt >50k w/ either heparin or lovenox --> plt trend: 145--> 229k # Anemia of chronic disease due to underlying chronic medical issues, multifactorial v Gi bleed --> Anemia workup has been ordered, rule out gi bleed --> No evidence of hemolysis is noted, peripheral smear has been reviewed. --> Hgb goal >7. Transfuse prn. --> Epogen or iron at this time is not particularly indicated --> Medications have been reviewed --> hgb trend: 11.3 # Swelling v Cellulitis R LE--may be fluid overload --> as per pulm and cards diuresis --> LE Dupplex negative for DVT --> lower ext now improved # H/o Hypertension --> sbp goal <140 --> per cards # Venous stasis # Morbid obesity # Homelessness DW Rn and consultants Subjective Constitutional: Denies: no symptoms, chills, fever, malaise, weakness, other HEENT: Denies: no symptoms, eye pain, blurred vision, tearing, double vision, ear pain, ear discharge, nose pain, nose congestion, throat pain, throat swelling, mouth pain, mouth swelling, other Cardiovascular: Denies: no symptoms, chest pain, edema, irregular heart rate, lightheadedness, palpitations, syncope, other Respiratory: Denies: no symptoms, cough, shortness of breath, SOB with excertion, SOB at rest, sputum, wheezing, other Gastrointestinal/Abdominal: Denies: no symptoms, abdomen distended, abdominal pain, black stools, tarry stools, blood in stool, constipated, diarrhea, difficulty swallowing, nausea, poor appetite, poor fluid intake, rectal bleeding , vomiting, other Genitourinary: Denies: no symptoms, burning, discharge, frequency, flank pain, hematuria, incontinence, pain, urgency, other Neurologic/Psychiatric: Denies: no symptoms, anxiety, depressed, emotional problems, headache, numbness, paresthesia, pre-existing deficit, seizure, tingling, tremors, weakness, other Endocrine: Denies: no symptoms, excessive sweating, flushing, intolerance to cold, intolerance to heat, increased hunger, increased thirst, increased urine, unexplained weight gain, unexplained weight loss, other Hematologic/Lymphatic: Denies: no symptoms, anemia, easy bleeding, easy bruising, adenopathy, other Allergies: Coded Allergies: No Known Allergies (Unverified , 08/01/18) Subjective 06/26: no events, no bleeding, diuresis per cards and pulm 06/27: alert, no overnight events, venous duplex negative, on room air 06/28: no events, no bleeding, labs noted, refusing shower, seen by pod 06/30: no major changes, legs appear better, no complaints, on 2lnc 07/01: no major events, no bleeding, no night sweats, cbc noted Objective Objective Current Medications Medications (Trade) Dose Ordered Sig/Tere Route PRN Reason Start Time Stop Time Status Last Admin Dose Admin Acetaminophen (Tylenol) 500 mg Q4H PRN ORAL Mild Pain/Temp > 100.5 06/30/19 18:34 07/30/19 18:33 Aspirin (Ecotrin) 81 mg DAILY ORAL 07/01/19 09:00 07/27/19 08:59 07/01/19 09:27 Atorvastatin Calcium (Lipitor) 20 mg BEDTIME ORAL 06/30/19 21:00 07/26/19 20:59 06/30/19 20:51 Furosemide (Lasix) 40 mg EVERY 12 HOURS IV 06/30/19 21:00 07/26/19 08:59 07/01/19 09:28 Metoprolol Tartrate (Lopressor) 25 mg Q12HR ORAL 06/30/19 21:00 07/26/19 11:59 07/01/19 09:27 Last 24 Hour Vital Signs Date Time Temp Pulse Resp B/P (MAP) Pulse Ox O2 Delivery O2 Flow Rate FiO2 07/01/19 09:27 81 125/74 07/01/19 08:00 98.9 81 17 125/74 (91) 98 07/01/19 04:14 98.0 90 19 130/82 (98) 96 07/01/19 00:11 97.8 96 20 128/82 (97) 96 06/30/19 20:50 91 134/76 06/30/19 20:26 98.6 91 19 134/76 (95) 98 06/30/19 20:19 Room Air 06/30/19 18:20 98.6 86 17 125/62 (83) 96 06/30/19 16:00 98.2 71 18 135/81 (99) 95 06/30/19 16:00 77 06/30/19 12:00 72 06/30/19 12:00 98.2 73 18 130/96 (107) 98 06/30/19 09:00 Room Air 06/30/19 08:59 82 130/80 06/30/19 08:00 97.8 82 18 130/80 (97) 99 06/30/19 08:00 78 06/30/19 04:15 98.9 84 18 128/77 (94) 94 06/30/19 04:00 81 06/30/19 00:00 98.1 83 16 138/84 (102) 95 06/30/19 00:00 83 06/29/19 21:06 86 131/74 06/29/19 21:01 Room Air 06/29/19 21:00 Room Air 06/29/19 20:00 99.1 86 18 131/74 (93) 98 06/29/19 20:00 83 06/29/19 16:00 79 06/29/19 16:00 98.1 80 20 146/83 (104) 95 06/29/19 12:00 98.2 76 18 136/78 (97) 96 06/29/19 12:00 72 06/29/19 10:03 85 129/64 Intake and Output 06/30/19 07/01/19 19:00 07:00 Intake Total 350 ml Balance 350 ml Intake Oral 350 ml # Voids 2 3 Labs Test 07/01/19 08:49 Height (Feet): 6 Height (Inches): 2.00 Weight (Pounds): 128 Objective PHYSICAL EXAMINATION: VITAL SIGNS: Reviewed HEENT: PERRLA. NECK: Supple. No lymphadenopathy. CHEST: Clear to auscultation. CARDIOVASCULAR: Regular rate and rhythm. No murmurs or extra sounds. GASTROINTESTINAL: Soft, distended. Positive bowel sounds. EXTREMITIES: The patient is edematous all over including scrotal edema. The patient's feet are horrible in terms of hygiene. The toenails have not been clipped either. Improved since admission Alessandro Beach MD Jul 01, 2019 09:32
[2019-07-01 09:52] LABS: BASOPHILS % (AUTO) 1.1 % (0.0-2.0); EOSINOPHILS % (AUTO) 3.8 % (0.0-3.0); HEMATOCRIT 37.6 % (42.0-52.0); HEMOGLOBIN 12.6 G/DL (14.2-18.0); LYMPHOCYTES % (AUTO) 21.9 % (20.0-45.0); MEAN CORPUSCULAR VOLUME 85 FL (80-99); MONOCYTES % (AUTO) 8.5 % (1.0-10.0); NEUTROPHILS % (AUTO) 64.6 % (45.0-75.0); PLATELET COUNT 347 K/UL (150-450); RED BLOOD COUNT 4.41 M/UL (4.70-6.10); RED CELL DISTRIBUTION WIDTH 13.7 % (11.6-14.8); WHITE BLOOD COUNT 8.4 K/UL (4.8-10.8)
--- NOTE | 2019-07-01 10:22 | Pulmonology Progress Note ---
Assessment/Plan Assessment/Plan IMPRESSION: 1. Pulmonary edema. 2. Hypertension. DISCUSSION: 1. Continue present care 2. Blood pressure control. 3. Continue diuresis. 4. I will follow as principle software engineer; continue oxygen and pulmonary hygiene. 5. Checked duplex LE; no DVT Akira Chaidez M.D. Subjective Interval Events: None new Constitutional: Reports: no symptoms HEENT: Repors: no symptoms Respiratory: Reports: no symptoms Cardiovascular: Reports: no symptoms Allergies: Coded Allergies: No Known Allergies (Unverified , 08/01/18) Objective Last 24 Hour Vital Signs Date Time Temp Pulse Resp B/P (MAP) Pulse Ox O2 Delivery O2 Flow Rate FiO2 07/01/19 09:27 81 125/74 07/01/19 08:00 98.9 81 17 125/74 (91) 98 07/01/19 04:14 98.0 90 19 130/82 (98) 96 07/01/19 00:11 97.8 96 20 128/82 (97) 96 06/30/19 20:50 91 134/76 06/30/19 20:26 98.6 91 19 134/76 (95) 98 06/30/19 20:19 Room Air 06/30/19 18:20 98.6 86 17 125/62 (83) 96 06/30/19 16:00 98.2 71 18 135/81 (99) 95 06/30/19 16:00 77 06/30/19 12:00 72 06/30/19 12:00 98.2 73 18 130/96 (107) 98 Intake and Output 06/30/19 07/01/19 19:00 07:00 Intake Total 350 ml Balance 350 ml Intake Oral 350 ml # Voids 2 3 General Appearance: no acute distress HEENT: normocephalic Respiratory/Chest: chest wall non-tender, lungs clear Cardiovascular: normal peripheral pulses, normal rate Laboratory Tests 07/01/19 08:49: White Blood Count 8.4, Red Blood Count 4.41L, Hemoglobin 12.6L, Hematocrit 37.6L , Mean Corpuscular Volume 85, Mean Corpuscular Hemoglobin 28.6, Mean Corpuscular Hemoglobin Concent 33.5, Red Cell Distribution Width 13.7, Platelet Count 347, Mean Platelet Volume 6.5, Neutrophils (%) (Auto) 64.6, Lymphocytes (% ) (Auto) 21.9, Monocytes (%) (Auto) 8.5, Eosinophils (%) (Auto) 3.8H, Basophils (%) (Auto) 1.1 Current Medications Medications (Trade) Dose Ordered Sig/Tere Route PRN Reason Start Time Stop Time Status Last Admin Dose Admin Acetaminophen (Tylenol) 500 mg Q4H PRN ORAL Mild Pain/Temp > 100.5 06/30/19 18:34 07/30/19 18:33 Aspirin (Ecotrin) 81 mg DAILY ORAL 07/01/19 09:00 07/27/19 08:59 07/01/19 09:27 Atorvastatin Calcium (Lipitor) 20 mg BEDTIME ORAL 06/30/19 21:00 07/26/19 20:59 06/30/19 20:51 Furosemide (Lasix) 40 mg EVERY 12 HOURS IV 06/30/19 21:00 07/26/19 08:59 07/01/19 09:28 Metoprolol Tartrate (Lopressor) 25 mg Q12HR ORAL 06/30/19 21:00 07/26/19 11:59 07/01/19 09:27 Akira Chaidez MD Jul 01, 2019 10:22
--- NOTE | 2019-07-01 10:26 | Cardiac Electrophysiology PN ---
Assessment/Plan Assessment/Plan 1. Troponin elevation. 3/5 troponins were negative.The other 2 are identical low at 0.08 No CP. Echocardiogram EF 55%. EKG is normal. Continue aspirin and beta- rob Schedule for stress test 2. Diabetic patient with venous stasis, cellulitis, and edema consistent with peripheral vascular disease. Lower extremity DVT is negative for DVT. Echocardiogram Nl EF. On Lasix 40 mg b.i.d. Vascular surgeon FU 3. HTN on Lopressor and Lasix 4. Morbid obesity. 5. Homelessness. Subjective Subjective No CP or SOB. Placement pending. Objective Last 24 Hour Vital Signs Date Time Temp Pulse Resp B/P (MAP) Pulse Ox O2 Delivery O2 Flow Rate FiO2 07/01/19 09:27 81 125/74 07/01/19 08:00 98.9 81 17 125/74 (91) 98 07/01/19 04:14 98.0 90 19 130/82 (98) 96 07/01/19 00:11 97.8 96 20 128/82 (97) 96 06/30/19 20:50 91 134/76 06/30/19 20:26 98.6 91 19 134/76 (95) 98 06/30/19 20:19 Room Air 06/30/19 18:20 98.6 86 17 125/62 (83) 96 06/30/19 16:00 98.2 71 18 135/81 (99) 95 06/30/19 16:00 77 06/30/19 12:00 72 06/30/19 12:00 98.2 73 18 130/96 (107) 98 Intake and Output 06/30/19 07/01/19 19:00 07:00 Intake Total 350 ml Balance 350 ml Intake Oral 350 ml # Voids 2 3 Laboratory Tests Test 07/01/19 08:49 White Blood Count 8.4 K/UL (4.8-10.8) Red Blood Count 4.41 M/UL (4.70-6.10) L Hemoglobin 12.6 G/DL (14.2-18.0) L Hematocrit 37.6 % (42.0-52.0) L Mean Corpuscular Volume 85 FL (80-99) Mean Corpuscular Hemoglobin 28.6 PG (27.0-31.0) Mean Corpuscular Hemoglobin Concent 33.5 G/DL (32.0-36.0) Red Cell Distribution Width 13.7 % (11.6-14.8) Platelet Count 347 K/UL (150-450) Mean Platelet Volume 6.5 FL (6.5-10.1) Neutrophils (%) (Auto) 64.6 % (45.0-75.0) Lymphocytes (%) (Auto) 21.9 % (20.0-45.0) Monocytes (%) (Auto) 8.5 % (1.0-10.0) Eosinophils (%) (Auto) 3.8 % (0.0-3.0) H Basophils (%) (Auto) 1.1 % (0.0-2.0) Objective HEAD AND NECK: No JVD. LUNGS: Clear. CARDIOVASCULAR: Shows regular S1 and S2 with no gallop. ABDOMEN: Morbidly obese. EXTREMITIES: 2+ pitting edema R>L. Mohamud Powell MD Jul 01, 2019 10:26
[2019-07-01] MEDS ORDERED: Lexiscan 0.4mg/5ml syringe IV PRN (10:30)
[2019-07-01 12:00] VITALS: BP 124/87
[2019-07-01 16:00] VITALS: BP 127/74
--- NOTE | 2019-07-01 16:10 | NUR ---
CASE MANAGEMENT:REVIEW SI;PULMONARY EDEMA. HTN. CELLULITIS. VENOUS STASIS. 98.9 96 20 130/82 96% ON RA IS;ASA PO QD LASIX IV Q12 HRS LOPRESSOR PO Q12 HRS MED SURG STATUS DCP;PATIENT IS HOMELESS
[2019-07-01 19:45] VITALS: BP 100/59
--- NOTE | 2019-07-01 19:50 | NUR ---
NURSE NOTES: Received patient awake, alert, verbal, resting in bed, comfortable.
--- NOTE | 2019-07-01 19:52 | NUR ---
HAND-OFF: Report given to Rochelle Franks RN. Patient sleeping on right side, on room air, respirations at 16 breaths per minute, no c/o pain, no SOB, in no apparent distress, bed in lowest position, call light within reach. Patient notified and educated about a no caffeine diet, no chocolates prior to Lexiscan stress test.
[2019-07-01] MEDS: Atorvastatin 20mg tab ORAL SCH (21:01)
--- NOTE | 2019-07-01 21:03 | General Progress Note ---
Assessment/Plan Problem List: (1) Open wound ICD Codes: T14.8XXA - Other injury of unspecified body region, initial encounter SNOMED: 943061382 (2) Cellulitis ICD Codes: L03.90 - Cellulitis, unspecified SNOMED: 182070425 (3) Cellulitis of right lower extremity ICD Codes: L03.115 - Cellulitis of right lower limb SNOMED: 736622654 (4) SOB (shortness of breath) ICD Codes: R06.02 - Shortness of breath SNOMED: 674441203 (5) Edema ICD Codes: R60.9 - Edema, unspecified SNOMED: 256070994, 677324487 Qualifiers: Qualified Codes: R60.9 - Edema, unspecified (6) Chest pain ICD Codes: R07.9 - Chest pain, unspecified SNOMED: 72798209 Qualifiers: Qualified Codes: R07.9 - Chest pain, unspecified Status: stable Assessment/Plan: needs close fluid management anasarca poor hygiene homeless needs placement reviewd chart and labs Subjective ROS Limited/Unobtainable: Yes Allergies: Coded Allergies: No Known Allergies (Unverified , 08/01/18) Objective Last 24 Hour Vital Signs Date Time Temp Pulse Resp B/P (MAP) Pulse Ox O2 Delivery O2 Flow Rate FiO2 07/01/19 20:39 Room Air 07/01/19 19:45 98.2 82 18 100/59 (73) 95 07/01/19 16:00 98.5 76 18 127/74 (91) 100 07/01/19 12:00 98.7 87 17 124/87 (99) 99 07/01/19 09:27 81 125/74 07/01/19 09:00 Room Air 07/01/19 08:00 98.9 81 17 125/74 (91) 98 07/01/19 04:14 98.0 90 19 130/82 (98) 96 07/01/19 00:11 97.8 96 20 128/82 (97) 96 Intake and Output 06/30/19 07/01/19 19:00 07:00 Intake Total 350 ml Balance 350 ml Intake Oral 350 ml # Voids 2 3 Laboratory Tests 07/01/19 08:49: White Blood Count 8.4, Red Blood Count 4.41L, Hemoglobin 12.6L, Hematocrit 37.6L , Mean Corpuscular Volume 85, Mean Corpuscular Hemoglobin 28.6, Mean Corpuscular Hemoglobin Concent 33.5, Red Cell Distribution Width 13.7, Platelet Count 347, Mean Platelet Volume 6.5, Neutrophils (%) (Auto) 64.6, Lymphocytes (% ) (Auto) 21.9, Monocytes (%) (Auto) 8.5, Eosinophils (%) (Auto) 3.8H, Basophils (%) (Auto) 1.1 Height (Feet): 6 Height (Inches): 2.00 Weight (Pounds): 128 Neck: normal inspection Cardiovascular: normal rate Respiratory/Chest: lungs clear Abdomen: soft Wade San MD Jul 01, 2019 21:02
[2019-07-02 04:00] VITALS: BP 123/66
--- NOTE | 2019-07-02 07:12 | NUR ---
HAND-OFF: Report given to Db Alvarez RN.
--- NOTE | 2019-07-02 07:22 | NUR ---
NURSE NOTES: Handoff report received from TRACEY Byrd. Patient received awake and alert and able to make needs known, patient is on room air with no acute signs of distress noted. Iv site is clean dry and intact, saline locked. Night RN stated patient might be going down for dobutamine stress test, no consent signed as night RN stated the MD will get consent when patient is taken down for the procedure. Patient is on no caffeine no chocolate in prep for stress test. bed in the low and locked position with call light within reach, will continue to monitor patient.
[2019-07-02 07:27] LABS: BASOPHILS % (AUTO) 1.1 % (0.0-2.0); HEMATOCRIT 40.7 % (42.0-52.0); HEMOGLOBIN 13.3 G/DL (14.2-18.0); LYMPHOCYTES % (AUTO) 26.1 % (20.0-45.0); MEAN CORPUSCULAR VOLUME 85 FL (80-99); MONOCYTES % (AUTO) 6.1 % (1.0-10.0); NEUTROPHILS % (AUTO) 62.7 % (45.0-75.0); PLATELET COUNT 341 K/UL (150-450); RED BLOOD COUNT 4.77 M/UL (4.70-6.10); RED CELL DISTRIBUTION WIDTH 14.7 % (11.6-14.8); WHITE BLOOD COUNT 8.3 K/UL (4.8-10.8)
[2019-07-02 08:00] VITALS: BP 120/69
[2019-07-02] MEDS: Aspirin EC 81mg tab ORAL SCH (10:07)
[2019-07-02 12:00] VITALS: BP 129/71
--- NOTE | 2019-07-02 12:30 | Cardiac Electrophysiology PN ---
Assessment/Plan Assessment/Plan 1. Troponin elevation. 3/5 troponins were negative.The other 2 are identical low at 0.08 No CP. Echocardiogram EF 55%. EKG is normal. Continue aspirin and beta- rob Had stress test today. Results pending 2. Diabetic patient with venous stasis, cellulitis, and edema consistent with peripheral vascular disease. Lower extremity DVT is negative for DVT. Echocardiogram Nl EF. On Lasix 40 mg b.i.d. Vascular surgeon FU 3. HTN on Lopressor and Lasix 4. Morbid obesity. 5. Homelessness. BRIAN RN Subjective Subjective No CP or SOB. Has stress test today. Results pending Objective Last 24 Hour Vital Signs Date Time Temp Pulse Resp B/P (MAP) Pulse Ox O2 Delivery O2 Flow Rate FiO2 07/02/19 10:07 84 120/69 07/02/19 08:53 Room Air 07/02/19 08:00 98.5 84 17 120/69 (86) 98 07/02/19 04:00 98.3 77 15 123/66 (85) 97 07/01/19 21:00 82 100/59 07/01/19 20:39 Room Air 07/01/19 19:45 98.2 82 18 100/59 (73) 95 07/01/19 16:00 98.5 76 18 127/74 (91) 100 Intake and Output 07/01/19 07/02/19 19:00 07:00 Intake Total 480 ml Balance 480 ml Intake Oral 480 ml # Voids 8 # Bowel Movements 1 Laboratory Tests Test 07/02/19 05:40 White Blood Count 8.3 K/UL (4.8-10.8) Red Blood Count 4.77 M/UL (4.70-6.10) Hemoglobin 13.3 G/DL (14.2-18.0) L Hematocrit 40.7 % (42.0-52.0) L Mean Corpuscular Volume 85 FL (80-99) Mean Corpuscular Hemoglobin 27.9 PG (27.0-31.0) Mean Corpuscular Hemoglobin Concent 32.7 G/DL (32.0-36.0) Red Cell Distribution Width 14.7 % (11.6-14.8) Platelet Count 341 K/UL (150-450) Mean Platelet Volume 6.6 FL (6.5-10.1) Neutrophils (%) (Auto) 62.7 % (45.0-75.0) Lymphocytes (%) (Auto) 26.1 % (20.0-45.0) Monocytes (%) (Auto) 6.1 % (1.0-10.0) Eosinophils (%) (Auto) 4.0 % (0.0-3.0) H Basophils (%) (Auto) 1.1 % (0.0-2.0) Objective HEAD AND NECK: No JVD. LUNGS: Clear. CARDIOVASCULAR: Shows regular S1 and S2 with no gallop. ABDOMEN: Morbidly obese. EXTREMITIES: 2+ pitting edema R>L. Mohamud Powell MD Jul 02, 2019 12:30
--- NOTE | 2019-07-02 14:03 | Pulmonology Progress Note ---
Assessment/Plan Assessment/Plan IMPRESSION: 1. Pulmonary edema. 2. Hypertension. DISCUSSION: 1. Continue present care 2. Blood pressure control. 3. Continue diuresis. 4. 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 5. Checked duplex LE; no DVT Akira Chaidez M.D. Subjective Interval Events: none new reported Constitutional: Reports: no symptoms HEENT: Repors: no symptoms Respiratory: Reports: no symptoms Cardiovascular: Reports: no symptoms Gastrointestinal/Abdominal: Reports: no symptoms Genitourinary: Reports: no symptoms Allergies: Coded Allergies: No Known Allergies (Unverified , 08/01/18) Objective Last 24 Hour Vital Signs Date Time Temp Pulse Resp B/P (MAP) Pulse Ox O2 Delivery O2 Flow Rate FiO2 07/02/19 12:00 98.6 82 18 129/71 (90) 97 07/02/19 10:07 84 120/69 07/02/19 08:53 Room Air 07/02/19 08:00 98.5 84 17 120/69 (86) 98 07/02/19 04:00 98.3 77 15 123/66 (85) 97 07/01/19 21:00 82 100/59 07/01/19 20:39 Room Air 07/01/19 19:45 98.2 82 18 100/59 (73) 95 07/01/19 16:00 98.5 76 18 127/74 (91) 100 Intake and Output 07/01/19 07/02/19 19:00 07:00 Intake Total 480 ml Balance 480 ml Intake Oral 480 ml # Voids 8 # Bowel Movements 1 General Appearance: no acute distress HEENT: normocephalic Respiratory/Chest: chest wall non-tender, lungs clear Cardiovascular: normal peripheral pulses Abdomen: normal bowel sounds Laboratory Tests 07/02/19 05:40: White Blood Count 8.3, Red Blood Count 4.77, Hemoglobin 13.3L, Hematocrit 40.7L , Mean Corpuscular Volume 85, Mean Corpuscular Hemoglobin 27.9, Mean Corpuscular Hemoglobin Concent 32.7, Red Cell Distribution Width 14.7, Platelet Count 341, Mean Platelet Volume 6.6, Neutrophils (%) (Auto) 62.7, Lymphocytes (% ) (Auto) 26.1, Monocytes (%) (Auto) 6.1, Eosinophils (%) (Auto) 4.0H, Basophils (%) (Auto) 1.1 Current Medications Medications (Trade) Dose Ordered Sig/Tere Route PRN Reason Start Time Stop Time Status Last Admin Dose Admin Acetaminophen (Tylenol) 500 mg Q4H PRN ORAL Mild Pain/Temp > 100.5 06/30/19 18:34 07/30/19 18:33 Aspirin (Ecotrin) 81 mg DAILY ORAL 07/01/19 09:00 07/27/19 08:59 07/02/19 10:07 Atorvastatin Calcium (Lipitor) 20 mg BEDTIME ORAL 06/30/19 21:00 07/26/19 20:59 07/01/19 21:01 Furosemide (Lasix) 40 mg EVERY 12 HOURS IV 06/30/19 21:00 07/26/19 08:59 07/02/19 10:07 Metoprolol Tartrate (Lopressor) 25 mg Q12HR ORAL 06/30/19 21:00 07/26/19 11:59 07/02/19 10:07 Regadenoson (Lexiscan) 0.4 mg ONCE PRN IV STRESS TEST 07/01/19 10:30 07/03/19 10:29 07/02/19 11:33 Akira Chaidez MD Jul 02, 2019 14:03
--- NOTE | 2019-07-02 14:49 | Diagnostic Imaging Report ---
Indication: chest pain Technique: The study was conducted under the supervision of a emulsion operator. lexiscan (regadenoson) infusion over 10 seconds followed by intravenous administration of 30.9 mCi of technetium 99m Myoview was performed. Three plane SPECT imaging of the heart was then performed. A resting study was performed as part of the one-day protocol with 10.5 mCi of technetium 99m myoview injected intravenously at that time. Three plane SPECT imaging of the heart was obtained. Comparison: None Clinical data: 1. Clinical response: Non ischemic 2. Electrocardiographic response: Non ischemic Findings: The myocardial perfusion scan demonstrates heterogeneous perfusion without definite fixed or reversible defects. LVEF estimated at 46%. IMPRESSION: No evidence of myocardial ischemia
[2019-07-02 16:00] VITALS: BP 131/77
--- NOTE | 2019-07-02 16:38 | Hematology/Onc Progress Note ---
Assessment/Plan Assessment/Plan ASSESSMENT AND RECS # Thrombocytopenia - potential causes multifactorial, evaluate liver and viral etiologies to begin, also could be related to underlying medications patient has received. --> Hep panel and HIV ordered --> US abd to evaluate for cirrhosis and hsm ordered --> Peripheral smear ordered to evaluate for blasts /schistocytes --> abx and other meds have been reviewed --> ok for ppx if plt >50k w/ either heparin or lovenox --> plt trend: 145--> 229k -->341 # Anemia of chronic disease due to underlying chronic medical issues, multifactorial v Gi bleed --> Anemia workup has been ordered, rule out gi bleed --> No evidence of hemolysis is noted, peripheral smear has been reviewed. --> Hgb goal >7. Transfuse prn. --> Epogen or iron at this time is not particularly indicated --> Medications have been reviewed --> hgb trend: 11.3-->13.1 # Swelling v Cellulitis R LE--may be fluid overload --> as per pulm and cards diuresis --> LE Dupplex negative for DVT --> lower ext now improved # H/o Hypertension --> sbp goal <140 --> per cards # Venous stasis # Morbid obesity # Homelessness DW Rn and consultants Subjective Allergies: Coded Allergies: No Known Allergies (Unverified , 08/01/18) Subjective 06/26: no events, no bleeding, diuresis per cards and pulm 06/27: alert, no overnight events, venous duplex negative, on room air 06/28: no events, no bleeding, labs noted, refusing shower, seen by pod 06/30: no major changes, legs appear better, no complaints, on 2lnc 07/01: no major events, no bleeding, no night sweats, cbc noted 07/02: awake and alert, lexiscan for today, labs reviewed Objective Objective Current Medications Medications (Trade) Dose Ordered Sig/Tere Route PRN Reason Start Time Stop Time Status Last Admin Dose Admin Acetaminophen (Tylenol) 500 mg Q4H PRN ORAL Mild Pain/Temp > 100.5 06/30/19 18:34 07/30/19 18:33 Aspirin (Ecotrin) 81 mg DAILY ORAL 07/01/19 09:00 07/27/19 08:59 07/02/19 10:07 Atorvastatin Calcium (Lipitor) 20 mg BEDTIME ORAL 06/30/19 21:00 07/26/19 20:59 07/01/19 21:01 Furosemide (Lasix) 40 mg EVERY 12 HOURS IV 06/30/19 21:00 07/26/19 08:59 07/02/19 10:07 Metoprolol Tartrate (Lopressor) 25 mg Q12HR ORAL 06/30/19 21:00 07/26/19 11:59 07/02/19 10:07 Regadenoson (Lexiscan) 0.4 mg ONCE PRN IV STRESS TEST 07/01/19 10:30 07/03/19 10:29 07/02/19 11:33 Last 24 Hour Vital Signs Date Time Temp Pulse Resp B/P (MAP) Pulse Ox O2 Delivery O2 Flow Rate FiO2 07/02/19 12:00 98.6 82 18 129/71 (90) 97 07/02/19 10:07 84 120/69 07/02/19 08:53 Room Air 07/02/19 08:00 98.5 84 17 120/69 (86) 98 07/02/19 04:00 98.3 77 15 123/66 (85) 97 07/01/19 21:00 82 100/59 07/01/19 20:39 Room Air 07/01/19 19:45 98.2 82 18 100/59 (73) 95 07/01/19 16:00 98.5 76 18 127/74 (91) 100 07/01/19 12:00 98.7 87 17 124/87 (99) 99 07/01/19 09:27 81 125/74 07/01/19 09:00 Room Air 07/01/19 08:00 98.9 81 17 125/74 (91) 98 07/01/19 04:14 98.0 90 19 130/82 (98) 96 07/01/19 00:11 97.8 96 20 128/82 (97) 96 06/30/19 20:50 91 134/76 06/30/19 20:26 98.6 91 19 134/76 (95) 98 06/30/19 20:19 Room Air 06/30/19 18:20 98.6 86 17 125/62 (83) 96 Intake and Output 07/01/19 07/02/19 19:00 07:00 Intake Total 480 ml Balance 480 ml Intake Oral 480 ml # Voids 8 # Bowel Movements 1 Labs Test 07/01/19 08:49 07/02/19 05:40 White Blood Count 8.4 K/UL (4.8-10.8) 8.3 K/UL (4.8-10.8) Red Blood Count 4.41 M/UL (4.70-6.10) 4.77 M/UL (4.70-6.10) Hemoglobin 12.6 G/DL (14.2-18.0) 13.3 G/DL (14.2-18.0) Hematocrit 37.6 % (42.0-52.0) 40.7 % (42.0-52.0) Mean Corpuscular Volume 85 FL (80-99) 85 FL (80-99) Mean Corpuscular Hemoglobin 28.6 PG (27.0-31.0) 27.9 PG (27.0-31.0) Mean Corpuscular Hemoglobin Concent 33.5 G/DL (32.0-36.0) 32.7 G/DL (32.0-36.0) Red Cell Distribution Width 13.7 % (11.6-14.8) 14.7 % (11.6-14.8) Platelet Count 347 K/UL (150-450) 341 K/UL (150-450) Mean Platelet Volume 6.5 FL (6.5-10.1) 6.6 FL (6.5-10.1) Neutrophils (%) (Auto) 64.6 % (45.0-75.0) 62.7 % (45.0-75.0) Lymphocytes (%) (Auto) 21.9 % (20.0-45.0) 26.1 % (20.0-45.0) Monocytes (%) (Auto) 8.5 % (1.0-10.0) 6.1 % (1.0-10.0) Eosinophils (%) (Auto) 3.8 % (0.0-3.0) 4.0 % (0.0-3.0) Basophils (%) (Auto) 1.1 % (0.0-2.0) 1.1 % (0.0-2.0) Height (Feet): 6 Height (Inches): 2.00 Weight (Pounds): 128 Objective PHYSICAL EXAMINATION: VITAL SIGNS: Reviewed HEENT: PERRLA. NECK: Supple. No lymphadenopathy. CHEST: Clear to auscultation. CARDIOVASCULAR: Regular rate and rhythm. No murmurs or extra sounds. GASTROINTESTINAL: Soft, distended. Positive bowel sounds. EXTREMITIES: The patient is edematous all over including scrotal edema. The patient's feet are horrible in terms of hygiene. The toenails have not been clipped either. Improved since admission Alessandro Beach MD Jul 02, 2019 16:38
--- NOTE | 2019-07-02 19:36 | NUR ---
HAND-OFF: Report given to TRACEY Franks. Pt in stable condition; plan of care endorsed.
[2019-07-02 20:00] VITALS: BP 137/76
--- NOTE | 2019-07-02 21:13 | General Progress Note ---
Assessment/Plan Problem List: (1) Open wound ICD Codes: T14.8XXA - Other injury of unspecified body region, initial encounter SNOMED: 185393928 (2) Cellulitis ICD Codes: L03.90 - Cellulitis, unspecified SNOMED: 307936802 (3) Cellulitis of right lower extremity ICD Codes: L03.115 - Cellulitis of right lower limb SNOMED: 410224110 (4) SOB (shortness of breath) ICD Codes: R06.02 - Shortness of breath SNOMED: 967144590 (5) Edema ICD Codes: R60.9 - Edema, unspecified SNOMED: 338098726, 619450792 Qualifiers: Qualified Codes: R60.9 - Edema, unspecified (6) Chest pain ICD Codes: R07.9 - Chest pain, unspecified SNOMED: 68488129 Qualifiers: Qualified Codes: R07.9 - Chest pain, unspecified Status: stable Assessment/Plan: r/o chf resp insuff afebrile no change needs placement reviewd chart and labs Subjective ROS Limited/Unobtainable: Yes Allergies: Coded Allergies: No Known Allergies (Unverified , 08/01/18) Objective Last 24 Hour Vital Signs Date Time Temp Pulse Resp B/P (MAP) Pulse Ox O2 Delivery O2 Flow Rate FiO2 07/02/19 16:00 98.3 88 18 131/77 (95) 98 07/02/19 12:00 98.6 82 18 129/71 (90) 97 07/02/19 10:07 84 120/69 07/02/19 08:53 Room Air 07/02/19 08:00 98.5 84 17 120/69 (86) 98 07/02/19 04:00 98.3 77 15 123/66 (85) 97 Intake and Output 07/01/19 07/02/19 19:00 07:00 Intake Total 480 ml Balance 480 ml Intake Oral 480 ml # Voids 8 # Bowel Movements 1 Laboratory Tests 07/02/19 05:40: White Blood Count 8.3, Red Blood Count 4.77, Hemoglobin 13.3L, Hematocrit 40.7L , Mean Corpuscular Volume 85, Mean Corpuscular Hemoglobin 27.9, Mean Corpuscular Hemoglobin Concent 32.7, Red Cell Distribution Width 14.7, Platelet Count 341, Mean Platelet Volume 6.6, Neutrophils (%) (Auto) 62.7, Lymphocytes (% ) (Auto) 26.1, Monocytes (%) (Auto) 6.1, Eosinophils (%) (Auto) 4.0H, Basophils (%) (Auto) 1.1 Height (Feet): 6 Height (Inches): 2.00 Weight (Pounds): 128 Cardiovascular: normal rate Respiratory/Chest: lungs clear Abdomen: soft Wade San MD Jul 02, 2019 21:13
[2019-07-02] MEDS: Atorvastatin 20mg tab ORAL SCH (21:18)
[2019-07-03 00:14] VITALS: BP 132/69
[2019-07-03 04:32] VITALS: BP 138/96
[2019-07-03 06:51] LABS: BASOPHILS % (AUTO) 0.9 % (0.0-2.0); EOSINOPHILS % (AUTO) 4.2 % (0.0-3.0); HEMATOCRIT 40.8 % (42.0-52.0); LYMPHOCYTES % (AUTO) 26.8 % (20.0-45.0); MEAN CORPUSCULAR VOLUME 86 FL (80-99); MONOCYTES % (AUTO) 9.6 % (1.0-10.0); NEUTROPHILS % (AUTO) 58.6 % (45.0-75.0); PLATELET COUNT 357 K/UL (150-450); RED BLOOD COUNT 4.73 M/UL (4.70-6.10); RED CELL DISTRIBUTION WIDTH 13.8 % (11.6-14.8); WHITE BLOOD COUNT 7.4 K/UL (4.8-10.8)
--- NOTE | 2019-07-03 07:23 | NUR ---
HAND-OFF: Report given to Naomi James LVN.
--- NOTE | 2019-07-03 07:30 | NUR ---
NURSE NOTES: Received report from TRACEY Byrd. Patient A/A/Ox4, ambulatory. took a shower without any distress noted. consumed breakfast 100%. Denies of pain/discomfort noted. IV access patent and intact. Kept bed in the lowest position. siderails are upx3. bed alarm engaged and locked. will cont to monitor.
[2019-07-03 08:00] VITALS: BP 102/75
[2019-07-03] MEDS: Aspirin EC 81mg tab ORAL SCH (08:21)
--- NOTE | 2019-07-03 08:59 | Cardiac Electrophysiology PN ---
Assessment/Plan Assessment/Plan 1. Troponin elevation. 3/5 troponins were negative.The other 2 are identical low at 0.08 No CP. Echocardiogram EF 55%. EKG is normal. Continue aspirin and beta- rob Had stress test that showed no ischemia 2. Diabetic patient with venous stasis, cellulitis, and edema consistent with peripheral vascular disease. Lower extremity DVT is negative for DVT. Echo Nl EF. Change Lasix to 40 mg po b.i.d. 3. HTN on Lopressor and Lasix 4. Morbid obesity. 5. Homelessness. BRIAN RN Subjective Subjective No CP or SOB. Has stress test yesterday that was nonischemic Objective Last 24 Hour Vital Signs Date Time Temp Pulse Resp B/P (MAP) Pulse Ox O2 Delivery O2 Flow Rate FiO2 07/03/19 08:23 93 102/75 07/03/19 08:00 97.4 93 18 102/75 (84) 95 07/03/19 04:32 98.0 65 20 138/96 (110) 95 07/03/19 00:14 98.0 79 20 132/69 (90) 95 07/02/19 21:41 Room Air 07/02/19 21:19 78 137/76 07/02/19 20:00 97.8 78 18 137/76 (96) 95 07/02/19 16:00 98.3 88 18 131/77 (95) 98 07/02/19 12:00 98.6 82 18 129/71 (90) 97 07/02/19 10:07 84 120/69 Intake and Output 07/02/19 07/03/19 19:00 07:00 Intake Total 1000 ml 800 ml Balance 1000 ml 800 ml Intake Oral 1000 ml 800 ml # Voids 8 4 # Bowel Movements 1 Laboratory Tests Test 07/03/19 05:40 White Blood Count 7.4 K/UL (4.8-10.8) Red Blood Count 4.73 M/UL (4.70-6.10) Hemoglobin 13.0 G/DL (14.2-18.0) L Hematocrit 40.8 % (42.0-52.0) L Mean Corpuscular Volume 86 FL (80-99) Mean Corpuscular Hemoglobin 27.6 PG (27.0-31.0) Mean Corpuscular Hemoglobin Concent 32.0 G/DL (32.0-36.0) Red Cell Distribution Width 13.8 % (11.6-14.8) Platelet Count 357 K/UL (150-450) Mean Platelet Volume 6.8 FL (6.5-10.1) Neutrophils (%) (Auto) 58.6 % (45.0-75.0) Lymphocytes (%) (Auto) 26.8 % (20.0-45.0) Monocytes (%) (Auto) 9.6 % (1.0-10.0) Eosinophils (%) (Auto) 4.2 % (0.0-3.0) H Basophils (%) (Auto) 0.9 % (0.0-2.0) Objective HEAD AND NECK: No JVD. LUNGS: Clear. CARDIOVASCULAR: Shows regular S1 and S2 with no gallop. ABDOMEN: Morbidly obese. EXTREMITIES: 2+ pitting edema R>L. Mohamud Powell MD Jul 03, 2019 08:59
[2019-07-03] MEDS: Furosemide 40mg tab ORAL SCH ×2 (09:30→17:16)
--- NOTE | 2019-07-03 10:14 | Pulmonology Progress Note ---
Assessment/Plan Assessment/Plan IMPRESSION: 1. Pulmonary edema. 2. Hypertension. DISCUSSION: 1. Continue present care 2. Blood pressure control. 3. Continue diuresis. 4. 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 5. Checked duplex LE; no DVT Akira Chaidez M.D. Subjective Interval Events: None new Constitutional: Reports: no symptoms HEENT: Repors: no symptoms Respiratory: Reports: no symptoms Cardiovascular: Reports: no symptoms Allergies: Coded Allergies: No Known Allergies (Unverified , 08/01/18) Objective Last 24 Hour Vital Signs Date Time Temp Pulse Resp B/P (MAP) Pulse Ox O2 Delivery O2 Flow Rate FiO2 07/03/19 08:23 93 102/75 07/03/19 08:00 97.4 93 18 102/75 (84) 95 07/03/19 04:32 98.0 65 20 138/96 (110) 95 07/03/19 00:14 98.0 79 20 132/69 (90) 95 07/02/19 21:41 Room Air 07/02/19 21:19 78 137/76 07/02/19 20:00 97.8 78 18 137/76 (96) 95 07/02/19 16:00 98.3 88 18 131/77 (95) 98 07/02/19 12:00 98.6 82 18 129/71 (90) 97 Intake and Output 07/02/19 07/03/19 19:00 07:00 Intake Total 1000 ml 800 ml Balance 1000 ml 800 ml Intake Oral 1000 ml 800 ml # Voids 8 4 # Bowel Movements 1 General Appearance: no acute distress HEENT: normocephalic Respiratory/Chest: chest wall non-tender Cardiovascular: normal peripheral pulses Abdomen: normal bowel sounds Laboratory Tests 07/03/19 05:40: White Blood Count 7.4, Red Blood Count 4.73, Hemoglobin 13.0L, Hematocrit 40.8L , Mean Corpuscular Volume 86, Mean Corpuscular Hemoglobin 27.6, Mean Corpuscular Hemoglobin Concent 32.0, Red Cell Distribution Width 13.8, Platelet Count 357, Mean Platelet Volume 6.8, Neutrophils (%) (Auto) 58.6, Lymphocytes (% ) (Auto) 26.8, Monocytes (%) (Auto) 9.6, Eosinophils (%) (Auto) 4.2H, Basophils (%) (Auto) 0.9 Current Medications Medications (Trade) Dose Ordered Sig/Tere Route PRN Reason Start Time Stop Time Status Last Admin Dose Admin Acetaminophen (Tylenol) 500 mg Q4H PRN ORAL Mild Pain/Temp > 100.5 06/30/19 18:34 07/30/19 18:33 Aspirin (Ecotrin) 81 mg DAILY ORAL 07/01/19 09:00 07/27/19 08:59 07/03/19 08:21 Atorvastatin Calcium (Lipitor) 20 mg BEDTIME ORAL 06/30/19 21:00 07/26/19 20:59 07/02/19 21:18 Furosemide (Lasix) 40 mg BID ORAL 07/03/19 09:30 08/02/19 09:29 Metoprolol Tartrate (Lopressor) 25 mg Q12HR ORAL 06/30/19 21:00 07/26/19 11:59 07/03/19 08:23 Regadenoson (Lexiscan) 0.4 mg ONCE PRN IV STRESS TEST 07/01/19 10:30 07/03/19 10:29 07/02/19 11:33 Akira Chaidez MD Jul 03, 2019 10:14
[2019-07-03 12:00] VITALS: BP 120/75
--- NOTE | 2019-07-03 14:26 | NUR ---
RD ASSESSMENT & RECOMMENDATIONS SEE CARE ACTIVITY FOR COMPLETE ASSESSMENT DAILY ESTIMATED NEEDS: Needs based on Obesity, cardiac/ 98kg abw 20-23 kcals/kg 9784-2312 total kcals 1-1.3 g protein/kg 98-127 g total protein 20-25 mL/kg 1969-4377 total fluid mLs NUTRITION DIAGNOSIS: Obesity R/T life style factors, h/o homelessness, excessive energy intake? as evidenced by BMI of 37.5. CURRENT DIET:CARDIAC PO DIET RECOMMENDATIONS: Maintain cardiac diet ADDITIONAL RECOMMENDATIONS: * Weekly standing weight monitoring. * Monitor lytes w/ Lasix, replete as needed
--- NOTE | 2019-07-03 15:34 | NUR ---
CASE MANAGEMENT:REVIEW SI;PULMONARY EDEMA. HTN. VENOUS STATIS. CELLULITIS. EDEMA. 98.0 93 20 132/69 95% ON RA IS;LASIX PO BID ASA PO QD LOPRESSOR PO Q12 HRS MED SURG STATUS PLAN;CONTINUE WITH CURRENT PLAN OF CARE DCP;PLACEMENT DUE TO HOMELESSNESS
[2019-07-03 16:00] VITALS: BP 134/78
--- NOTE | 2019-07-03 16:10 | Hematology/Onc Progress Note ---
Assessment/Plan Assessment/Plan ASSESSMENT AND RECS # Thrombocytopenia - potential causes multifactorial, evaluate liver and viral etiologies to begin, also could be related to underlying medications patient has received. --> Hep panel and HIV ordered -> hold off --> US abd to evaluate for cirrhosis and hsm ordered --> hold off --> Peripheral smear ordered to evaluate for blasts /schistocytes --> no blasts seen --> abx and other meds have been reviewed --> ok for ppx if plt >50k w/ either heparin or lovenox --> plt trend: 145--> 229k -->341 # Anemia of chronic disease due to underlying chronic medical issues, multifactorial v Gi bleed --> Anemia workup has been ordered, rule out gi bleed --> No evidence of hemolysis is noted, peripheral smear has been reviewed. --> Hgb goal >7. Transfuse prn. --> Epogen or iron at this time is not particularly indicated --> Medications have been reviewed --> hgb trend: 11.3-->13.1 # Swelling v Cellulitis R LE--may be fluid overload --> as per pulm and cards diuresis --> LE Dupplex negative for DVT --> lower ext now improved # H/o Hypertension --> sbp goal <140 --> per cards # Venous stasis # Morbid obesity # Homelessness Rn and consultants Subjective HEENT: Denies: no symptoms, eye pain, blurred vision, tearing, double vision, ear pain, ear discharge, nose pain, nose congestion, throat pain, throat swelling, mouth pain, mouth swelling, other Respiratory: Denies: no symptoms, cough, shortness of breath, SOB with excertion, SOB at rest, sputum, wheezing, other Gastrointestinal/Abdominal: Denies: no symptoms, abdomen distended, abdominal pain, black stools, tarry stools, blood in stool, constipated, diarrhea, difficulty swallowing, nausea, poor appetite, poor fluid intake, rectal bleeding , vomiting, other Genitourinary: Denies: no symptoms, burning, discharge, frequency, flank pain, hematuria, incontinence, pain, urgency, other Neurologic/Psychiatric: Denies: no symptoms, anxiety, depressed, emotional problems, headache, numbness, paresthesia, pre-existing deficit, seizure, tingling, tremors, weakness, other Endocrine: Denies: no symptoms, excessive sweating, flushing, intolerance to cold, intolerance to heat, increased hunger, increased thirst, increased urine, unexplained weight gain, unexplained weight loss, other Hematologic/Lymphatic: Denies: no symptoms, anemia, easy bleeding, easy bruising, adenopathy, other Allergies: Coded Allergies: No Known Allergies (Unverified , 08/01/18) Subjective 06/26: no events, no bleeding, diuresis per cards and pulm 06/27: alert, no overnight events, venous duplex negative, on room air 06/28: no events, no bleeding, labs noted, refusing shower, seen by pod 06/30: no major changes, legs appear better, no complaints, on 2lnc 07/01: no major events, no bleeding, no night sweats, cbc noted 07/02: awake and alert, lexiscan for today, labs reviewed 07/03; no major changes, no bleeding, labs noted, less leg swelling Objective Objective Current Medications Medications (Trade) Dose Ordered Sig/Tere Route PRN Reason Start Time Stop Time Status Last Admin Dose Admin Acetaminophen (Tylenol) 500 mg Q4H PRN ORAL Mild Pain/Temp > 100.5 06/30/19 18:34 07/30/19 18:33 Aspirin (Ecotrin) 81 mg DAILY ORAL 07/01/19 09:00 07/27/19 08:59 07/03/19 08:21 Atorvastatin Calcium (Lipitor) 20 mg BEDTIME ORAL 06/30/19 21:00 07/26/19 20:59 07/02/19 21:18 Furosemide (Lasix) 40 mg BID ORAL 07/03/19 09:30 08/02/19 09:29 Metoprolol Tartrate (Lopressor) 25 mg Q12HR ORAL 06/30/19 21:00 07/26/19 11:59 07/03/19 08:23 Last 24 Hour Vital Signs Date Time Temp Pulse Resp B/P (MAP) Pulse Ox O2 Delivery O2 Flow Rate FiO2 07/03/19 12:00 97.7 72 18 120/75 (90) 96 07/03/19 09:00 Room Air 07/03/19 08:23 93 102/75 07/03/19 08:00 97.4 93 18 102/75 (84) 95 07/03/19 04:32 98.0 65 20 138/96 (110) 95 07/03/19 00:14 98.0 79 20 132/69 (90) 95 07/02/19 21:41 Room Air 07/02/19 21:19 78 137/76 07/02/19 20:00 97.8 78 18 137/76 (96) 95 07/02/19 16:00 98.3 88 18 131/77 (95) 98 07/02/19 12:00 98.6 82 18 129/71 (90) 97 07/02/19 10:07 84 120/69 07/02/19 08:53 Room Air 07/02/19 08:00 98.5 84 17 120/69 (86) 98 07/02/19 04:00 98.3 77 15 123/66 (85) 97 07/01/19 21:00 82 100/59 07/01/19 20:39 Room Air 07/01/19 19:45 98.2 82 18 100/59 (73) 95 Intake and Output 07/02/19 07/03/19 19:00 07:00 Intake Total 1000 ml 800 ml Balance 1000 ml 800 ml Intake Oral 1000 ml 800 ml # Voids 8 4 # Bowel Movements 1 Labs Test 07/01/19 08:49 07/02/19 05:40 07/03/19 05:40 White Blood Count 8.4 K/UL (4.8-10.8) 8.3 K/UL (4.8-10.8) 7.4 K/UL (4.8-10.8) Red Blood Count 4.41 M/UL (4.70-6.10) 4.77 M/UL (4.70-6.10) 4.73 M/UL (4.70-6.10) Hemoglobin 12.6 G/DL (14.2-18.0) 13.3 G/DL (14.2-18.0) 13.0 G/DL (14.2-18.0) Hematocrit 37.6 % (42.0-52.0) 40.7 % (42.0-52.0) 40.8 % (42.0-52.0) Mean Corpuscular Volume 85 FL (80-99) 85 FL (80-99) 86 FL (80-99) Mean Corpuscular Hemoglobin 28.6 PG (27.0-31.0) 27.9 PG (27.0-31.0) 27.6 PG (27.0-31.0) Mean Corpuscular Hemoglobin Concent 33.5 G/DL (32.0-36.0) 32.7 G/DL (32.0-36.0) 32.0 G/DL (32.0-36.0) Red Cell Distribution Width 13.7 % (11.6-14.8) 14.7 % (11.6-14.8) 13.8 % (11.6-14.8) Platelet Count 347 K/UL (150-450) 341 K/UL (150-450) 357 K/UL (150-450) Mean Platelet Volume 6.5 FL (6.5-10.1) 6.6 FL (6.5-10.1) 6.8 FL (6.5-10.1) Neutrophils (%) (Auto) 64.6 % (45.0-75.0) 62.7 % (45.0-75.0) 58.6 % (45.0-75.0) Lymphocytes (%) (Auto) 21.9 % (20.0-45.0) 26.1 % (20.0-45.0) 26.8 % (20.0-45.0) Monocytes (%) (Auto) 8.5 % (1.0-10.0) 6.1 % (1.0-10.0) 9.6 % (1.0-10.0) Eosinophils (%) (Auto) 3.8 % (0.0-3.0) 4.0 % (0.0-3.0) 4.2 % (0.0-3.0) Basophils (%) (Auto) 1.1 % (0.0-2.0) 1.1 % (0.0-2.0) 0.9 % (0.0-2.0) Height (Feet): 6 Height (Inches): 2.00 Weight (Pounds): 292 Objective PHYSICAL EXAMINATION: VITAL SIGNS: Reviewed HEENT: PERRLA. NECK: Supple. No lymphadenopathy. CHEST: Clear to auscultation. CARDIOVASCULAR: Regular rate and rhythm. No murmurs or extra sounds. GASTROINTESTINAL: Soft, distended. Positive bowel sounds. EXTREMITIES: The patient is edematous all over including scrotal edema. The patient's feet are horrible in terms of hygiene. The toenails have not been clipped either. Improved since admission Alessandro Beach MD Jul 03, 2019 16:10
--- NOTE | 2019-07-03 19:04 | NUR ---
HAND-OFF: Report given to
--- NOTE | 2019-07-03 19:30 | NUR ---
NURSE NOTES: Received patient in no apparent distress. A&OX4. IV site patent and intact. Bed in lowest position. Call light within reach. Will continue to monitor.
[2019-07-03 20:00] VITALS: BP 132/74
[2019-07-03] MEDS: Atorvastatin 20mg tab ORAL SCH (21:01)
--- NOTE | 2019-07-03 22:27 | General Progress Note ---
Assessment/Plan Problem List: (1) Open wound ICD Codes: T14.8XXA - Other injury of unspecified body region, initial encounter SNOMED: 139732226 (2) Cellulitis ICD Codes: L03.90 - Cellulitis, unspecified SNOMED: 390106038 (3) Cellulitis of right lower extremity ICD Codes: L03.115 - Cellulitis of right lower limb SNOMED: 848494715 (4) SOB (shortness of breath) ICD Codes: R06.02 - Shortness of breath SNOMED: 473260494 (5) Edema ICD Codes: R60.9 - Edema, unspecified SNOMED: 905364808, 648986415 Qualifiers: Qualified Codes: R60.9 - Edema, unspecified (6) Chest pain ICD Codes: R07.9 - Chest pain, unspecified SNOMED: 24771773 Qualifiers: Qualified Codes: R07.9 - Chest pain, unspecified Status: stable Assessment/Plan: r/o chf resp insuff edema poor hygeine needs placement afebrile Subjective ROS Limited/Unobtainable: Yes Allergies: Coded Allergies: No Known Allergies (Unverified , 08/01/18) Objective Last 24 Hour Vital Signs Date Time Temp Pulse Resp B/P (MAP) Pulse Ox O2 Delivery O2 Flow Rate FiO2 07/03/19 21:01 79 132/74 07/03/19 21:00 Room Air 07/03/19 20:00 97.6 79 18 132/74 (93) 96 07/03/19 16:00 97.8 79 18 134/78 (96) 96 07/03/19 12:00 97.7 72 18 120/75 (90) 96 07/03/19 09:00 Room Air 07/03/19 08:23 93 102/75 07/03/19 08:00 97.4 93 18 102/75 (84) 95 07/03/19 04:32 98.0 65 20 138/96 (110) 95 07/03/19 00:14 98.0 79 20 132/69 (90) 95 Intake and Output 07/02/19 07/03/19 19:00 07:00 Intake Total 1000 ml 800 ml Balance 1000 ml 800 ml Intake Oral 1000 ml 800 ml # Voids 8 4 # Bowel Movements 1 Laboratory Tests 2/26/20 05:40: White Blood Count 7.4, Red Blood Count 4.73, Hemoglobin 13.0L, Hematocrit 40.8L , Mean Corpuscular Volume 86, Mean Corpuscular Hemoglobin 27.6, Mean Corpuscular Hemoglobin Concent 32.0, Red Cell Distribution Width 13.8, Platelet Count 357, Mean Platelet Volume 6.8, Neutrophils (%) (Auto) 58.6, Lymphocytes (% ) (Auto) 26.8, Monocytes (%) (Auto) 9.6, Eosinophils (%) (Auto) 4.2H, Basophils (%) (Auto) 0.9 Height (Feet): 6 Height (Inches): 2.00 Weight (Pounds): 292 Cardiovascular: normal rate Respiratory/Chest: lungs clear Abdomen: soft Wade San MD Jul 03, 2019 22:27
[2019-07-04] VITALS: BP 112/55
[2019-07-04 04:00] VITALS: BP 130/78
--- NOTE | 2019-07-04 07:19 | NUR ---
HAND-OFF: Report given to Edward WEBB.
--- NOTE | 2019-07-04 07:28 | NUR ---
NURSE NOTES: Received report from TRACEY Ghotra. Patient sleeping on right side, respirations at 16 breaths per minute, in no apparent distress, bed in lowest position, call light within reach, siderails up x 2.
[2019-07-04 08:00] VITALS: BP 129/67
[2019-07-04] MEDS: Furosemide 40mg tab ORAL SCH ×2 (09:30→18:45)
[2019-07-04] MEDS: Aspirin EC 81mg tab ORAL SCH (09:30)
--- NOTE | 2019-07-04 10:08 | CDS Physician Query ---
Clarification is required for compliance, coding accuracy, and to reflect severity of illness for this patient Dear Dr. Powell Date: 07.04.19 CDS: Jenny Srivastava Heart Failure / CHF" documented in consultation Diabetic patient with venous stasis, cellulitis, and edema consistent with peripheral vascular disease. Lower extremity DVT is negative for DVT. Echocardiogram Nl EF. On Lasix 40 mg b.i.d. " Please Clarify: Acuity [ ] Acute [ ] Chronic [ ] Acute on Chronic Type [ ] Systolic [ ] Diastolic [ ] Systolic & Diastolic (Combined) [ ] Other: Present on Admission: [ ] Yes [ ] No [ ] Clinically Undetermined Physician signature Date Please also document in your Progress Notes and/or Discharge Summary and indicate if the condition was present on admission. FABIOD
--- NOTE | 2019-07-04 10:27 | NUR ---
BLOWER ROOM ATTENDANT NOTE SW met w/ pt to discuss dc planning. Pt reports he does not want to return his work. Pt is planning to go to a motel but did not disclose the city/specific location. Pt reports he has savings that he can afford staying at motels. PT does not want to ask his sister, Sadia Keith [phone] for housing. SW offered a placement including board and care and independent living facilities. However, pt refused and stated he does not want a shared housing. Pt preferred to go to a motel than the facilities. SW encouraged pt to reconsider but pt refused. Pt does not want to go to a homeless penitentiary and he declined to receive the list of homeless shelters. Pt does not share any other concern/needs. Pt to be discharged to his preferred location w/ bus pass. Signed: 07/04/19 at 1030 by FRED VERMA <Co-Signature Required>
--- NOTE | 2019-07-04 10:38 | General Progress Note ---
Assessment/Plan Problem List: (1) Open wound ICD Codes: T14.8XXA - Other injury of unspecified body region, initial encounter SNOMED: 942987413 (2) Cellulitis ICD Codes: L03.90 - Cellulitis, unspecified SNOMED: 320325335 (3) Cellulitis of right lower extremity ICD Codes: L03.115 - Cellulitis of right lower limb SNOMED: 322851014 (4) SOB (shortness of breath) ICD Codes: R06.02 - Shortness of breath SNOMED: 099836061 (5) Edema ICD Codes: R60.9 - Edema, unspecified SNOMED: 004596525, 454013607 Qualifiers: Qualified Codes: R60.9 - Edema, unspecified (6) Chest pain ICD Codes: R07.9 - Chest pain, unspecified SNOMED: 66409297 Qualifiers: Qualified Codes: R07.9 - Chest pain, unspecified Status: stable Assessment/Plan: reviewed chart and labs chf needs dc to safe place resp insuff edema poor hygeine needs placement afebrile Subjective ROS Limited/Unobtainable: Yes Allergies: Coded Allergies: No Known Allergies (Unverified , 08/01/18) Objective Last 24 Hour Vital Signs Date Time Temp Pulse Resp B/P (MAP) Pulse Ox O2 Delivery O2 Flow Rate FiO2 07/04/19 09:31 81 129/67 07/04/19 08:00 98.0 81 19 129/67 (87) 96 07/04/19 04:00 97.5 73 18 130/78 (95) 98 07/04/19 00:00 97.5 72 18 112/55 (74) 97 07/03/19 21:01 79 132/74 07/03/19 21:00 Room Air 07/03/19 20:00 97.6 79 18 132/74 (93) 96 07/03/19 16:00 97.8 79 18 134/78 (96) 96 07/03/19 12:00 97.7 72 18 120/75 (90) 96 Intake and Output 07/03/19 07/04/19 19:00 07:00 Intake Total 720 ml Balance 720 ml Intake Oral 720 ml Height (Feet): 6 Height (Inches): 2.00 Weight (Pounds): 292 Cardiovascular: normal rate Respiratory/Chest: lungs clear Hadadz,Ali MD Jul 04, 2019 10:38
--- NOTE | 2019-07-04 10:58 | Pulmonology Progress Note ---
Assessment/Plan Assessment/Plan IMPRESSION: 1. Pulmonary edema. 2. Hypertension. DISCUSSION: 1. Continue present care 2. Blood pressure control. 3. Continue diuresis. 4. I will follow as dog catcher; continue oxygen and pulmonary hygiene. 5. No DVT Akira Chaidez M.D. Subjective Interval Events: None new Constitutional: Reports: no symptoms HEENT: Repors: no symptoms Respiratory: Reports: no symptoms Cardiovascular: Reports: no symptoms Gastrointestinal/Abdominal: Reports: no symptoms Allergies: Coded Allergies: No Known Allergies (Unverified , 08/01/18) Objective Last 24 Hour Vital Signs Date Time Temp Pulse Resp B/P (MAP) Pulse Ox O2 Delivery O2 Flow Rate FiO2 07/04/19 09:31 81 129/67 07/04/19 09:00 Room Air 07/04/19 08:00 98.0 81 19 129/67 (87) 96 07/04/19 04:00 97.5 73 18 130/78 (95) 98 07/04/19 00:00 97.5 72 18 112/55 (74) 97 07/03/19 21:01 79 132/74 07/03/19 21:00 Room Air 07/03/19 20:00 97.6 79 18 132/74 (93) 96 07/03/19 16:00 97.8 79 18 134/78 (96) 96 07/03/19 12:00 97.7 72 18 120/75 (90) 96 Intake and Output 07/03/19 07/04/19 19:00 07:00 Intake Total 720 ml Balance 720 ml Intake Oral 720 ml General Appearance: no acute distress HEENT: normocephalic Respiratory/Chest: chest wall non-tender, lungs clear Cardiovascular: normal peripheral pulses Abdomen: normal bowel sounds Current Medications Medications (Trade) Dose Ordered Sig/Tere Route PRN Reason Start Time Stop Time Status Last Admin Dose Admin Acetaminophen (Tylenol) 500 mg Q4H PRN ORAL Mild Pain/Temp > 100.5 06/30/19 18:34 07/30/19 18:33 Aspirin (Ecotrin) 81 mg DAILY ORAL 07/01/19 09:00 07/27/19 08:59 07/04/19 09:30 Atorvastatin Calcium (Lipitor) 20 mg BEDTIME ORAL 06/30/19 21:00 07/26/19 20:59 07/03/19 21:01 Furosemide (Lasix) 40 mg BID ORAL 07/03/19 09:30 08/02/19 09:29 07/04/19 09:30 Metoprolol Tartrate (Lopressor) 25 mg Q12HR ORAL 06/30/19 21:00 07/26/19 11:59 07/04/19 09:31 Akira Chaidez MD Jul 04, 2019 10:58
--- NOTE | 2019-07-04 11:02 | Cardiac Electrophysiology PN ---
Assessment/Plan Assessment/Plan 1. Troponin elevation. 3/5 troponins were negative.The other 2 are identical low at 0.08 No CP. Echocardiogram EF 55%. EKG is normal. Continue aspirin and beta- rob Had stress test showed no ischemia 2. Diabetic patient with venous stasis, cellulitis, and edema consistent with peripheral vascular disease. Lower extremity DVT is negative for DVT. Echo Nl EF. On Lasix 40 mg po b.i.d. 3. HTN on Lopressor and Lasix 4. Morbid obesity. 5. Homelessness. DW RN OK to DC Subjective Subjective No CP or SOB. Stress test was nonischemic Objective Last 24 Hour Vital Signs Date Time Temp Pulse Resp B/P (MAP) Pulse Ox O2 Delivery O2 Flow Rate FiO2 07/04/19 09:31 81 129/67 07/04/19 09:00 Room Air 07/04/19 08:00 98.0 81 19 129/67 (87) 96 07/04/19 04:00 97.5 73 18 130/78 (95) 98 07/04/19 00:00 97.5 72 18 112/55 (74) 97 07/03/19 21:01 79 132/74 07/03/19 21:00 Room Air 07/03/19 20:00 97.6 79 18 132/74 (93) 96 07/03/19 16:00 97.8 79 18 134/78 (96) 96 07/03/19 12:00 97.7 72 18 120/75 (90) 96 Intake and Output 07/03/19 07/04/19 19:00 07:00 Intake Total 720 ml Balance 720 ml Intake Oral 720 ml Objective HEAD AND NECK: No JVD. LUNGS: Clear. CARDIOVASCULAR: Shows regular S1 and S2 with no gallop. ABDOMEN: Morbidly obese. EXTREMITIES: 2+ pitting edema R>L. Mohamud Powell MD Jul 04, 2019 11:02
[2019-07-04 12:00] VITALS: BP 130/76
[2019-07-04 16:00] VITALS: BP 145/87
--- NOTE | 2019-07-04 16:28 | Hematology/Onc Progress Note ---
Assessment/Plan Assessment/Plan ASSESSMENT AND RECS # Thrombocytopenia - potential causes multifactorial, evaluate liver and viral etiologies to begin, also could be related to underlying medications patient has received. --> Hep panel and HIV ordered -> hold off --> US abd to evaluate for cirrhosis and hsm ordered --> hold off --> Peripheral smear ordered to evaluate for blasts /schistocytes --> no blasts seen --> abx and other meds have been reviewed --> ok for ppx if plt >50k w/ either heparin or lovenox --> plt trend: 145--> 229k -->341 # Anemia of chronic disease due to underlying chronic medical issues, multifactorial v Gi bleed --> Anemia workup has been ordered, rule out gi bleed --> No evidence of hemolysis is noted, peripheral smear has been reviewed. --> Hgb goal >7. Transfuse prn. --> Epogen or iron at this time is not particularly indicated --> Medications have been reviewed --> hgb trend: 11.3-->13.1 # Swelling v Cellulitis R LE--may be fluid overload --> as per pulm and cards diuresis --> LE Dupplex negative for DVT --> lower ext now improved # H/o Hypertension --> sbp goal <140 --> per cards # Venous stasis # Morbid obesity # Homelessness DW Rn and consultants Subjective Allergies: Coded Allergies: No Known Allergies (Unverified , 08/01/18) Subjective 06/26: no events, no bleeding, diuresis per cards and pulm 06/27: alert, no overnight events, venous duplex negative, on room air 06/28: no events, no bleeding, labs noted, refusing shower, seen by pod 06/30: no major changes, legs appear better, no complaints, on 2lnc 07/01: no major events, no bleeding, no night sweats, cbc noted 07/02: awake and alert, lexiscan for today, labs reviewed 07/03; no major changes, no bleeding, labs noted, less leg swelling 07/04: no overnight events, continues on lasix, on room air, no sob Objective Objective Current Medications Medications (Trade) Dose Ordered Sig/Tere Route PRN Reason Start Time Stop Time Status Last Admin Dose Admin Acetaminophen (Tylenol) 500 mg Q4H PRN ORAL Mild Pain/Temp > 100.5 06/30/19 18:34 07/30/19 18:33 Aspirin (Ecotrin) 81 mg DAILY ORAL 07/01/19 09:00 07/27/19 08:59 07/04/19 09:30 Atorvastatin Calcium (Lipitor) 20 mg BEDTIME ORAL 06/30/19 21:00 07/26/19 20:59 07/03/19 21:01 Furosemide (Lasix) 40 mg BID ORAL 07/03/19 09:30 08/02/19 09:29 07/04/19 09:30 Metoprolol Tartrate (Lopressor) 25 mg Q12HR ORAL 06/30/19 21:00 07/26/19 11:59 07/04/19 09:31 Last 24 Hour Vital Signs Date Time Temp Pulse Resp B/P (MAP) Pulse Ox O2 Delivery O2 Flow Rate FiO2 07/04/19 12:00 97.6 73 18 130/76 (94) 97 07/04/19 09:31 81 129/67 07/04/19 09:00 Room Air 07/04/19 08:00 98.0 81 19 129/67 (87) 96 07/04/19 04:00 97.5 73 18 130/78 (95) 98 07/04/19 00:00 97.5 72 18 112/55 (74) 97 07/03/19 21:01 79 132/74 07/03/19 21:00 Room Air 07/03/19 20:00 97.6 79 18 132/74 (93) 96 07/03/19 16:00 97.8 79 18 134/78 (96) 96 07/03/19 12:00 97.7 72 18 120/75 (90) 96 07/03/19 09:00 Room Air 07/03/19 08:23 93 102/75 07/03/19 08:00 97.4 93 18 102/75 (84) 95 07/03/19 04:32 98.0 65 20 138/96 (110) 95 07/03/19 00:14 98.0 79 20 132/69 (90) 95 07/02/19 21:41 Room Air 07/02/19 21:19 78 137/76 07/02/19 20:00 97.8 78 18 137/76 (96) 95 Intake and Output 07/03/19 07/04/19 19:00 07:00 Intake Total 720 ml Balance 720 ml Intake Oral 720 ml Labs Test 07/02/19 05:40 07/03/19 05:40 White Blood Count 8.3 K/UL (4.8-10.8) 7.4 K/UL (4.8-10.8) Red Blood Count 4.77 M/UL (4.70-6.10) 4.73 M/UL (4.70-6.10) Hemoglobin 13.3 G/DL (14.2-18.0) 13.0 G/DL (14.2-18.0) Hematocrit 40.7 % (42.0-52.0) 40.8 % (42.0-52.0) Mean Corpuscular Volume 85 FL (80-99) 86 FL (80-99) Mean Corpuscular Hemoglobin 27.9 PG (27.0-31.0) 27.6 PG (27.0-31.0) Mean Corpuscular Hemoglobin Concent 32.7 G/DL (32.0-36.0) 32.0 G/DL (32.0-36.0) Red Cell Distribution Width 14.7 % (11.6-14.8) 13.8 % (11.6-14.8) Platelet Count 341 K/UL (150-450) 357 K/UL (150-450) Mean Platelet Volume 6.6 FL (6.5-10.1) 6.8 FL (6.5-10.1) Neutrophils (%) (Auto) 62.7 % (45.0-75.0) 58.6 % (45.0-75.0) Lymphocytes (%) (Auto) 26.1 % (20.0-45.0) 26.8 % (20.0-45.0) Monocytes (%) (Auto) 6.1 % (1.0-10.0) 9.6 % (1.0-10.0) Eosinophils (%) (Auto) 4.0 % (0.0-3.0) 4.2 % (0.0-3.0) Basophils (%) (Auto) 1.1 % (0.0-2.0) 0.9 % (0.0-2.0) Height (Feet): 6 Height (Inches): 2.00 Weight (Pounds): 292 Objective PHYSICAL EXAMINATION: VITAL SIGNS: Reviewed HEENT: PERRLA. NECK: Supple. No lymphadenopathy. CHEST: Clear to auscultation. CARDIOVASCULAR: Regular rate and rhythm. No murmurs or extra sounds. GASTROINTESTINAL: Soft, distended. Positive bowel sounds. EXTREMITIES: The patient is edematous all over including scrotal edema. The patient's feet are horrible in terms of hygiene. The toenails have not been clipped either. Improved since admission Alessandro Beach MD Jul 04, 2019 16:28
--- NOTE | 2019-07-04 16:30 | NUR ---
ELECTRICAL PLUMBING SUPERVISOR DISCHARGE NOTE SPOKE WITH PATIENT AT BEDSIDE IN RE TO WHERE HE WILL RETURN UPON DISCHARGE. PATIENT STATES HE WILL BE GOING TO A HOTEL AND HAS FUNDS AVAILABLE TO PAY. REQUESTS TRANSPORTATION ASSISTANCE SUCH BUS TOKEN OR TAXI VOUCHER. ALSO STATES HE NEEDS SCRIPT FOR MAINTENANCE MEDS AND HE WILL PAY FOR THE RX. CHARGE NURSE INFORMED AND STATED DR MENDEZ HAD ALREADY BEEN HERE AND DID NOT LEAVE ANY SCRIPTS FOR THE PATIENT. CM INFORMED CHARGE NURSE TO NOTIFY DR MENDEZ AND REQUEST RX BE CALLED IN TO PHARMACY AT THE [facility] FROM [facility] AND TO OBTAIN BUS TOKEN OR TAXI VOUCHER FROM FORMAL WAITER/WAITRESS.
--- NOTE | 2019-07-04 19:47 | NUR ---
HAND-OFF: Report given to Hemant Sandhu RN. Patient sitting up at edge of bed, feet dangling, dressed and ready for discharge, on room air, no c/o pain, no SOB, in no apparent distress.
[2019-07-04 20:00] VITALS: BP 136/79
[2019-07-04] MEDS ORDERED: D5NS 1000ml IV ONE (20:34)
--- NOTE | 2019-07-04 20:50 | NUR ---
Homeless Discharge: Patient is being discharged from medical care. Awake, alert and oriented x4. After care instructions, referral to community resources were refused. Patient verbalized understanding of After care instructions; at this time patient does not request medications, equipment or placement. Patient signed patient consent in the medical record for patient destination upon discharge. All medical devices such as IV and ID band were removed. Patient ambulated out with all personal belongings with steady gait. Patient was given taxi voucher. All belongings with patient. Medication with patient.
--- NOTE | 2019-07-08 07:54 | Discharge Summary ---
Discharge Summary Discharge Summary _ DATE OF ADMISSION: 06/25/2019 DATE OF DISCHARGE: 07/04/2019 DISCHARGED BY: Dr. San REASON FOR ADMISSION: 54 years old male with past medical history of hypertension , presented to emergency department with bilateral lower extremity swelling, scrotal swelling , shortness of breath and some chest discomfort. Patient stated that symptoms got worse over the past few days. He denied nausea and vomiting. Patient reported more shortness of breath while walking and doing activities. Upon evaluation patient was slightly tachycardic and tachypneic ; blood pressure was 156/91 , and pulse oximetry was stable on room air. No leukocytosis. Hemoglobin 12.7 , hematocrit 28.7. Potassium 3.4. Stable other electrolytes and renal parameters. Glucose 93. AST 109 , ALT 89. Troponin negative, proBNP 88. EKG revealed sinus tachycardia no acute ischemic changes. Chest x-ray revealed no acute cardiopulmonary pathology. Patient received antiplatelet therapy with aspirin , one dose of IV Lasix and admitted for further management. CONSULTANTS: pulmonary Dr. Chaidez assistant floor covering printer/oncologist Dr. Beach podiatry [facility] COURSE: Patient admitted to telemetry floor. Bead Filler followed . Echocardiogram revealed preserved ejection fraction 55 to 60%. No evidence of wall motion abnormality. No evidence of left ventricular hypertrophy. Right ventricular systolic pressure of 55 consistent with a moderate pulmonary hypertension. Venous duplex bilateral lower extremity revealed no evidence of acute DVT. Myocardial perfusion test revealed no evidence of myocardial ischemia. No definite fixed or reversible defect. Left ventricular ejection fraction estimated to be 46%. First three troponin of out five were negative, and the last 2 troponin were elevated . The levels were flat. The pattern of elevation was not suggestive of acute coronary syndrome. Bead Filler recommended continue with medical management: aspirin and beta- rob. Clinical examination revealed evidence of venous stasis and edema , consistent with peripheral vascular disease. Patient was on Lasix with close monitoring of volumes and cardiorenal parameters. Blood pressure was managed with beta-rob and Lasix. Patient was counseled on weight reduction. Antibiotics provided for cellulitis. Supplemental oxygen and pulmonary toilet with bronchodilator provided as needed. Pulse oximetry was stable on room air. Software Quality Assurance Specialist seen and evaluated patient. Per case manager specialist, patient had venous stasis , cellulitis and edema , consistent with peripheral vascular disease. Patient to follow-up with a vascular surgeon as outpatient. Patient was explained regarding the peripheral vascular disease and lymphedema. The treating physician had assessed and agreed, that patient was medically stable for discharge to an outpatient disposition. FINAL DIAGNOSES: Diabetes mellitus Cellulitis right lower extremity Venous stasis Peripheral vascular disease Troponin elevation Hypertension Morbid obesity Pulmonary edema DISCHARGE MEDICATIONS: See Medication Reconciliation list. DISCHARGE INSTRUCTIONS: Patient was discharged to an outpatient disposition. I have been assigned to dictate discharge summary for this account. I was not involved in the patient's management. Yenni Acevedo NP Jul 08, 2019 07:54
== END 2019-07-04 20:35 | disposition home or self-care (01) | DRG 603 ==
LOC: EMR 10:10 → 2E 10:30 → EDBEDREQ 13:19 → 4E 06-30 18:30
DX: L03.115 Cellulitis of right lower limb (principal); J81.1 Chronic pulmonary edema; I11.0 Hypertensive heart disease with heart failure; E11.51 Type 2 diabetes mellitus with diabetic peripheral angiopathy without gangrene; D63.8 Anemia in other chronic diseases classified elsewhere; I50.9 Heart failure, unspecified; E87.6 Hypokalemia; Z68.37 Body mass index [BMI] 37.0-37.9, adult; I87.8 Other specified disorders of veins; D69.6 Thrombocytopenia, unspecified; E66.01 Morbid (severe) obesity due to excess calories; R07.9 Chest pain, unspecified; I73.9 Peripheral vascular disease, unspecified; Z59.0 Homelessness; E66.9 Obesity, unspecified
CPT/HCPCS: 36415; 71045; 78452; 80048; 80053; 80307; 81001; 83880; 84484; 85025; 93005; 93017; 93306; 93970; 96374; 99285; J2785